=== PATIENT | female | born 1980 | race Caucasian/White ===

== ENCOUNTER 2019-01-28 10:25 | Emergency (ER) | payer MEDICAID, OTHER ==
[~2019-01-28] VITALS: Ht 167.6 cm; Wt 124.3 kg
[2019-01-28] MEDS ORDERED: KETOROLAC 30 MG/ML VIAL IVP ONE ×2 (10:45→11:00)
[2019-01-28] MEDS ORDERED: METH-313 PO (10:59)
--- NOTE | 2019-01-28 10:59 | ED Back Pain ---
General Chief Complaint: Back Problems Stated Complaint: LOWER BACK PAIN Nursing Triage Note: PT AMB TO TRIAGE WITH COMPLAINT OF BACK PAIN THAT STARTED THIS MORNING AND MIGRAINE FOR 3 DAYS. STATES SHE IS OUT OF MIGRAINE MEDICINE. Nursing Sepsis Screen: No Definite Risk Source of Information: Patient Exam Limitations: No Limitations History of Present Illness Date Seen by Provider: Jan 28, 2019 Time Seen by Provider: 10:56 Initial Comments To ER by private vehicle with reports of midline low back pain. She states here in town with a friend last night, when she awakened she had some midline low back pain. No fevers or chills, no known injury. States she believes that she slept wrong. Pain does not go down either of her legs, no loss of control of bowel or bladder. No fevers or chills. Also reports a migraine for 3 days with nausea and vomiting. Typically she states that she gets Compazine and Benadryl for her migraine. Shed also like something for her back pain. She is out of her Imitrex for migraine Location: Lumbar Spine, Paraspinous Muscles Timing/Duration: 2-3 Days Method of Injury: Unknown Associated Symptoms: lower back pain Allergies and Home Medications Allergies Coded Allergies: Penicillins (Verified Allergy, Unknown, 01/28/19) haloperidol (Verified Allergy, Unknown, 01/28/19) latex (Verified Allergy, Unknown, 01/28/19) promethazine (Verified Allergy, Unknown, 01/28/19) Patient Home Medication List Home Medication List Reviewed: Yes Review of Systems Constitutional: see HPI EENTM: see HPI Respiratory: no symptoms reported Cardiovascular: no symptoms reported Genitourinary: no symptoms reported Musculoskeletal: see HPI Skin: no symptoms reported Psychiatric/Neurological: No Symptoms Reported Past Lqkzqst-Sdpezj-Qhkecn Hx Patient Social History Alcohol Use: Denies Use Recreational Drug Use: No Smoking Status: Never a Smoker Recent Foreign Travel: No Contact w/Someone Who Travel: No Recent Infectious Disease Expo: No Recent Hopitalizations: No Physical Abuse: No Sexual Abuse: No Mistreated: No Fear: No Immunizations Up To Date Tetanus Booster (TDap): Unknown PED Vaccines UTD: Yes Seasonal Allergies Seasonal Allergies: No Past Medical History Surgeries: Yes (D&C) Appendectomy, Breast, Section, Tonsillectomy Respiratory: No Cardiac: Yes Neurological: No Genitourinary: No Gastrointestinal: No Musculoskeletal: Yes Arthritis Endocrine: No HEENT: No Cancer: No Psychosocial: No Physical Exam Vital Signs Vital Signs - First Documented 01/28/19 10:35 Temp 97.1 Pulse 110 Resp 20 B/P (MAP) 126/102 (110) Pulse Ox 98 O2 Delivery Room Air Capillary Refill : Less Than 3 Seconds Height, Weight, BMI Height: 5'6.00" Weight: 274lbs. oz. 124.970794iq; BMI Method:Stated General Appearance: No Apparent Distress, WD/WN Neck: Full Range of Motion, Normal Inspection Respiratory: No Accessory Muscle Use, No Respiratory Distress Gastrointestinal: Normal Bowel Sounds, Non Tender, Soft Extremity: Normal Capillary Refill Neurologic/Psychiatric: Alert, Oriented x3 Skin: Normal Color, Warm/Dry Progress/Results/Core Measures Results/Orders My Orders Orders - AMANDA FORTUNE APRN Ketorolac Injection (Toradol Injection) (01/28/19 10:45) Ct Abd/Pelvis Wo(Kidney Stone) (01/28/19 10:41) Ed Iv/Invasive Line Start (01/28/19 10:49) Ketorolac Injection (Toradol Injection) (01/28/19 11:00) Prochlorperazine Injection (Compazine In (01/28/19 11:00) Diphenhydramine Injection (Benadryl Inje (01/28/19 11:00) Ns Iv 500 Ml (Sodium Chloride 0.9%) (01/28/19 11:00) Vital Signs/I&O 01/28/19 10:35 Temp 97.1 Pulse 110 Resp 20 B/P (MAP) 126/102 (110) Pulse Ox 98 O2 Delivery Room Air Blood Pressure Mean: 110 Departure Impression Primary Impression: Back pain Qualified Codes: M54.5 - Low back pain Additional Impression: Headache Qualified Codes: R51 - Headache Disposition: 01 HOME, SELF-CARE Condition: Stable Departure-Patient Inst. Decision time for Depature: 10:58 Referrals: NO,LOCAL PHYSICIAN (PCP) Primary Care Physician Patient Instructions: Headache, Adult (DC) Scripts Methocarbamol (Robaxin-750) 750 Mg Tablet 750 MG PO Q6H PRN for PAIN-MODERATE, #10 TAB Prov: AMANDA FORTUNE APRN 01/28/19 AMANDA FORTUNE APRN Jan 28, 2019 10:59
[2019-01-28] MEDS ORDERED: NS IV 500 ML 500 ML IV SCH (11:00)
[2019-01-28] MEDS ORDERED: diphenhydrAMINE 50 MG/ML INJ (BENADRYL) IVP ONE (11:00)
[2019-01-28] MEDS ORDERED: PROCHLORPERAZINE 10 MG/2ML INJ (COMPAZINE) IV ONE (11:00)
[2019-01-28 11:59] VITALS: BP 126/102
== END 2019-01-28 11:59 | disposition home or self-care (01) ==
LOC: ER 10:26
DX: M54.5 Low back pain (principal); R51 Headache; Z86.69 Personal history of other diseases of the nervous system and sense organs; Z88.0 Allergy status to penicillin; Z88.8 Allergy status to other drugs, medicaments and biological substances; Z91.040 Latex allergy status; Z90.49 Acquired absence of other specified parts of digestive tract; Z90.89 Acquired absence of other organs
CPT/HCPCS: 96361; 96374; 96375

== ENCOUNTER 2019-02-16 17:57 | Emergency (ER) | payer MEDICAID ==
[~2019-02-16] VITALS: Ht 167.6 cm; Wt 124.3 kg
[~2019-02-16 17:57] MED LIST: METH-313 PO
--- NOTE | 2019-02-16 18:06 | ED Headache ---
General Chief Complaint: Head/Cervical Problems Stated Complaint: MIGRAINE/SOB Nursing Triage Note: PT STATES SHE STARTED HAVING A MIGRAINE ON SUNDAY AND WAS UNABLE TO GET HER MEDICINE TO STOP THE MIGRAINE. PT STATES SHE HAS BEEN HAVING VOMITING WITH THIS AND FEELS SOA. PT STATES HER "HEART BEATS TOO FAST". PT STATES THE MIGRAINE STARTS AT THE BASE OF HER NECK AND SPREADS TO THE FRONT OF HER HEAD. PT DENIES SMOKING. Nursing Sepsis Screen: No Definite Risk Source: patient Exam Limitations: no limitations History of Present Illness Date Seen by Provider: Feb 16, 2019 Time Seen by Provider: 18:04 Initial Comments To ER with a migraine for the past 2 days. She has nausea with it. She normally takes Imitrex at the onset of these migraines but has been out of it and no pharmacist around to get. She's also been short of breath for one hour and she has that occasionally when her "heart beats too fast". Timing/Duration: constant Severity/Quality: moderate Location: global Prior Headaches/Recent Trauma: no recent headache/trauma Associated Symptoms: nausea/vomiting Allergies and Home Medications Allergies Coded Allergies: Penicillins (Verified Allergy, Unknown, 01/28/19) haloperidol (Verified Allergy, Unknown, 01/28/19) latex (Verified Allergy, Unknown, 01/28/19) promethazine (Verified Allergy, Unknown, 01/28/19) Home Medications Methocarbamol 750 Mg Tablet, 750 MG PO Q6H PRN for PAIN-MODERATE Prescribed by: AMANDA FORTUNE on 01/28/19 1059 Patient Home Medication List Home Medication List Reviewed: Yes ([place] underneath the) Review of Systems Review of Systems Constitutional: see HPI Eyes: No Symptoms Reported Ears, Nose, Mouth, Throat: no symptoms reported Respiratory: no symptoms reported Cardiovascular: no symptoms reported Genitourinary: no symptoms reported Musculoskeletal: no symptoms reported Psychiatric/Neurological: See HPI, Headache Past Cdvuoqt-Aihops-Kakjko Hx Patient Social History Recent Foreign Travel: No Contact w/Someone Who Travel: No Recent Infectious Disease Expo: No Recent Hopitalizations: No Immunizations Up To Date Tetanus Booster (TDap): Unknown PED Vaccines UTD: Yes Seasonal Allergies Seasonal Allergies: No Past Medical History Surgeries: Yes (D&C) Appendectomy, Breast, Section, Tonsillectomy Respiratory: No Cardiac: Yes Neurological: No Genitourinary: No Gastrointestinal: No Musculoskeletal: Yes Arthritis Endocrine: No HEENT: No Cancer: No Psychosocial: No Physical Exam Vital Signs Vital Signs - First Documented 02/16/19 02/16/19 18:01 19:28 Temp 97.6 Pulse 116 Resp 20 B/P (MAP) 153/98 (116) Pulse Ox 95 O2 Delivery Room Air Capillary Refill : Less Than 3 Seconds Height, Weight, BMI Height: 5'6.00" Weight: 274lbs. oz. 124.547552ns; BMI Method:Stated General Appearance: WD/WN, no apparent distress HEENT: PERRL/EOMI, normal ENT inspection Respiratory: normal breath sounds, no respiratory distress, no accessory muscle use Gastrointestinal: normal bowel sounds, non tender, soft Extremities: normal range of motion, non-tender Psychiatric: alert, oriented x 3 Crainal Nerves: normal hearing, normal speech, PERRL Motor/Sensory: no motor deficit, no sensory deficit Skin: normal color, warm/dry Progress/Results/Core Measures Results/Orders Lab Results Laboratory Tests Test 02/16/19 18:20 Range/Units White Blood Count 10.1 4.3-11.0 10^3/uL Red Blood Count 4.94 4.35-5.85 10^6/uL Hemoglobin 13.8 11.5-16.0 G/DL Hematocrit 43 35-52 % Mean Corpuscular Volume 86 80-99 FL Mean Corpuscular Hemoglobin 28 25-34 PG Mean Corpuscular Hemoglobin Concent 32 32-36 G/DL Red Cell Distribution Width 13.9 10.0-14.5 % Platelet Count 374 130-400 10^3/uL Mean Platelet Volume 9.6 7.4-10.4 FL Neutrophils (%) (Auto) 65 42-75 % Lymphocytes (%) (Auto) 21 12-44 % Monocytes (%) (Auto) 9 0-12 % Eosinophils (%) (Auto) 4 0-10 % Basophils (%) (Auto) 1 0-10 % Neutrophils # (Auto) 6.6 1.8-7.8 X 10^3 Lymphocytes # (Auto) 2.2 1.0-4.0 X 10^3 Monocytes # (Auto) 0.9 0.0-1.0 X 10^3 Eosinophils # (Auto) 0.4 H 0.0-0.3 10^3/uL Basophils # (Auto) 0.1 0.0-0.1 10^3/uL D-Dimer 0.36 0.00-0.49 UG/ML Sodium Level 138 135-145 MMOL/L Potassium Level 3.9 3.6-5.0 MMOL/L Chloride Level 111 H 98-107 MMOL/L Carbon Dioxide Level 17 L 21-32 MMOL/L Anion Gap 10 5-14 MMOL/L Blood Urea Nitrogen 10 7-18 MG/DL Creatinine 0.76 0.60-1.30 MG/DL Estimat Glomerular Filtration Rate > 60 BUN/Creatinine Ratio 13 Glucose Level 108 H 70-105 MG/DL Calcium Level 8.7 8.5-10.1 MG/DL Corrected Calcium 8.8 8.5-10.1 MG/DL Total Bilirubin 0.3 0.1-1.0 MG/DL Aspartate Amino Transf (AST/SGOT) 17 5-34 U/L Alanine Aminotransferase (ALT/SGPT) 14 0-55 U/L Alkaline Phosphatase 93 40-136 U/L Total Protein 7.3 6.4-8.2 GM/DL Albumin 3.9 3.2-4.5 GM/DL Serum Test, Qualitative NEGATIVE NEGATIVE My Orders Orders - AMANDA FORTUNE APRN Cbc With Automated Diff (02/16/19 18:03) Comprehensive Metabolic Panel (02/16/19 18:03) Ua Culture If Indicated (02/16/19 18:03) Hcg,Qualitative Serum (02/16/19 18:03) Fibrin Degradation Products (02/16/19 18:03) Ed Iv/Invasive Line Start (02/16/19 18:03) Ns Iv 1000 Ml (Sodium Chloride 0.9%) (02/16/19 18:15) Ketorolac Injection (Toradol Injection) (02/16/19 18:15) Diphenhydramine Injection (Benadryl Inje (02/16/19 18:15) Methylprednisolone Sod Succ (Solu-Medrol (02/16/19 18:15) Prochlorperazine Injection (Compazine In (02/16/19 18:45) Drug Screen Stat (Urine) (02/16/19 19:27) Sumatriptan Injection (Imitrex Injection (02/16/19 19:30) Chest 1 View, Ap/Pa Only (02/16/19 19:31) Medications Given in ED Current Medications Medications Dose Ordered Sig/Barb Route Start Time Stop Time Status Last Admin Dose Admin Diphenhydramine HCl 25 mg ONCE ONCE IVP 02/16/19 18:15 02/16/19 18:16 DC 02/16/19 18:26 25 MG Ketorolac Tromethamine 30 mg ONCE ONCE IVP 02/16/19 18:15 02/16/19 18:16 DC 02/16/19 18:32 30 MG Methylprednisolone Sodium Succinate 125 mg ONCE ONCE IVP 02/16/19 18:15 02/16/19 18:16 DC 02/16/19 18:28 125 MG Prochlorperazine Edisylate 10 mg ONCE ONCE IV 02/16/19 18:45 02/16/19 18:46 DC 02/16/19 18:42 10 MG Sumatriptan Succinate 6 mg ONCE ONCE SQ 02/16/19 19:30 02/16/19 19:31 DC 02/16/19 19:31 6 MG Vital Signs/I&O 02/16/19 02/16/19 18:01 19:28 Temp 97.6 Pulse 116 84 Resp 20 16 B/P (MAP) 153/98 (116) 118/81 (93) Pulse Ox 95 O2 Delivery Room Air Blood Pressure Mean: 116 Departure Communication (Admissions) 1909-HR down to 89. Impression Primary Impression: Headache Qualified Codes: R51 - Headache Disposition: 01 HOME, SELF-CARE Condition: Improved Departure-Patient Inst. Decision time for Depature: 20:13 Referrals: NO,LOCAL PHYSICIAN (PCP/Family) Primary Care Physician Patient Instructions: Headache, Adult (DC) Add. Discharge Instructions: 1. Return to ER for any concerns 2. Follow-up with your doctor next week. AMANDA FORTUNE APRN Feb 16, 2019 18:06
[2019-02-16] MEDS ORDERED: KETOROLAC 30 MG/ML VIAL IVP ONE (18:15)
[2019-02-16] MEDS ORDERED: NS IV 1000 ML 1,000 ML IV SCH (18:15)
[2019-02-16] MEDS ORDERED: methylPREDNISolone 125 MG (Solu-MEDROL) VIAL IVP ONE (18:15)
[2019-02-16] MEDS ORDERED: diphenhydrAMINE 50 MG/ML INJ (BENADRYL) IVP ONE (18:15)
[2019-02-16 18:41] LABS: BASOPHILS # (AUTO) 0.1 10^3/uL (0.0-0.1); BASOPHILS % (AUTO) 1 % (0-10); EOSINOPHILS # (AUTO) 0.4 10^3/uL (0.0-0.3); EOSINOPHILS % (AUTO) 4 % (0-10); HEMATOCRIT 43 % (35-52); HEMOGLOBIN 13.8 G/DL (11.5-16.0); LYMPHOCYTES # (AUTO) 2.2 X 10^3 (1.0-4.0); LYMPHOCYTES % (AUTO) 21 % (12-44); MEAN CORPUSCULAR HEMOGLOBIN 28 PG (25-34); MEAN CORPUSCULAR HGB CONC 32 G/DL (32-36); MEAN CORPUSCULAR VOLUME 86 FL (80-99); MEAN PLATELET VOLUME 9.6 FL (7.4-10.4); MONOCYTES # (AUTO) 0.9 X 10^3 (0.0-1.0); MONOCYTES % (AUTO) 9 % (0-12); NEUTROPHILS # (AUTO) 6.6 X 10^3 (1.8-7.8); NEUTROPHILS % (AUTO) 65 % (42-75); PLATELET COUNT 374 10^3/uL (130-400); RED CELL DISTRIBUTION WIDTH 13.9 % (10.0-14.5); WHITE BLOOD COUNT 10.1 10^3/uL (4.3-11.0)
[2019-02-16] MEDS ORDERED: PROCHLORPERAZINE 10 MG/2ML INJ (COMPAZINE) IV ONE (18:45)
--- NOTE | 2019-02-16 18:59 | NUR ---
report given to SANTA Ding
[2019-02-16 19:03] LABS: ALANINE AMINOTRANSFERASE 14 U/L (0-55); ALBUMIN 3.9 GM/DL (3.2-4.5); ALKALINE PHOSPHATASE 93 U/L (40-136); BILIRUBIN,TOTAL 0.3 MG/DL (0.1-1.0); BUN/CREATININE RATIO 13; CALCIUM 8.7 MG/DL (8.5-10.1); CARBON DIOXIDE 17 MMOL/L (21-32); CHLORIDE 111 MMOL/L (98-107); CREATININE SERUM 0.76 MG/DL (0.60-1.30); GFR ESTIMATED > 60; GLUCOSE 108 MG/DL (70-105); POTASSIUM 3.9 MMOL/L (3.6-5.0); SODIUM 138 MMOL/L (135-145); TOTAL PROTEIN 7.3 GM/DL (6.4-8.2)
--- NOTE | 2019-02-16 19:25 | NUR ---
pt reports pain 7/10, iv fluids completed. pt denies being able to void at this time.
[2019-02-16 19:28] VITALS: BP 118/81
[2019-02-16] MEDS ORDERED: SUMAtriptan 6 MG/0.5 ML (IMITREX) INJ SQ ONE (19:30)
--- NOTE | 2019-02-16 19:57 | Diagnostic Imaging Report ---
INDICATION: Shortness of breath COMPARISON: None. FINDINGS: Single view of the chest demonstrates clear lungs bilaterally. The heart is normal. There is no pneumothorax. The osseous structures are normal. IMPRESSION: 1. Negative chest. Dictated by: Dictated on workstation # [id number]
[2019-02-16 20:17] VITALS: BP 109/62
== END 2019-02-16 20:20 | disposition home or self-care (01) ==
LOC: EDUNIT# 17:57 → ER 17:58
DX: R51 Headache (principal); Z86.69 Personal history of other diseases of the nervous system and sense organs; Z88.0 Allergy status to penicillin; Z88.8 Allergy status to other drugs, medicaments and biological substances; Z91.040 Latex allergy status; Z90.49 Acquired absence of other specified parts of digestive tract; Z90.89 Acquired absence of other organs
CPT/HCPCS: 36415; 71045; 80053; 84703; 85025; 85379

== ENCOUNTER 2019-02-17 16:53 | Emergency (ER) | payer MEDICAID ==
[~2019-02-17] VITALS: Ht 167.6 cm; Wt 124.3 kg
[2019-02-17] MEDS ORDERED: KETOROLAC 30 MG/ML VIAL IVP ONE (17:15)
[2019-02-17] MEDS ORDERED: diphenhydrAMINE 50 MG/ML INJ (BENADRYL) IVP ONE (17:15)
[2019-02-17] MEDS ORDERED: PROCHLORPERAZINE 10 MG/2ML INJ (COMPAZINE) IV ONE (17:15)
[2019-02-17] MEDS ORDERED: SUMAtriptan 6 MG/0.5 ML (IMITREX) INJ SQ ONE (17:15)
--- NOTE | 2019-02-17 17:31 | ED Headache ---
General Chief Complaint: Head/Cervical Problems Stated Complaint: HEADACHE Nursing Triage Note: PT AMB TO TRIAGE WITH COMPLAINT OF HEADACHE. STATES WAS SEEN YESTERDAY IN ER, STATES SYMPTOMS IMPROVED. BUT WOKE UP THIS MORNING WITH ANOTHER HEADACHE. STATES SHE IS UNABLE TO FUNCTION DUE TO PAIN. Nursing Sepsis Screen: No Definite Risk Source: patient Exam Limitations: no limitations History of Present Illness Date Seen by Provider: Feb 17, 2019 Time Seen by Provider: 17:27 Initial Comments To ER with reports of a headache worse than yesterday. She was yesterday for the same. No fevers or chills. History of migraines. Severity/Quality: moderate Location: global Prior Headaches/Recent Trauma: frequent headaches Modifying Factors: worse with exposure to light Associated Symptoms: denies symptoms Allergies and Home Medications Allergies Coded Allergies: Penicillins (Verified Allergy, Unknown, 01/28/19) haloperidol (Verified Allergy, Unknown, 01/28/19) latex (Verified Allergy, Unknown, 01/28/19) promethazine (Verified Allergy, Unknown, 01/28/19) Home Medications Methocarbamol 750 Mg Tablet, 750 MG PO Q6H PRN for PAIN-MODERATE Prescribed by: AMANDA FORTUNE on 01/28/19 1059 Patient Home Medication List Home Medication List Reviewed: Yes Review of Systems Review of Systems Constitutional: see HPI Eyes: No Symptoms Reported Ears, Nose, Mouth, Throat: no symptoms reported Respiratory: no symptoms reported Cardiovascular: no symptoms reported Genitourinary: no symptoms reported Musculoskeletal: no symptoms reported Skin: no symptoms reported Psychiatric/Neurological: See HPI, Headache Past Ayzjlxv-Rweeyh-Exojke Hx Patient Social History Alcohol Use: Denies Use Recreational Drug Use: No Smoking Status: Never a Smoker 2nd Hand Smoke Exposure: Yes Recent Foreign Travel: No Contact w/Someone Who Travel: No Recent Infectious Disease Expo: No Recent Hopitalizations: No Physical Abuse: No Sexual Abuse: No Mistreated: No Fear: No Immunizations Up To Date Tetanus Booster (TDap): Unknown PED Vaccines UTD: Yes Seasonal Allergies Seasonal Allergies: No Past Medical History Surgeries: Yes (D&C) Appendectomy, Breast, Section, Tonsillectomy Respiratory: No Cardiac: Yes Neurological: No Genitourinary: No Gastrointestinal: No Musculoskeletal: Yes Arthritis Endocrine: No HEENT: No Cancer: No Psychosocial: No Physical Exam Vital Signs Vital Signs - First Documented 02/17/19 16:54 Temp 97.9 Pulse 121 Resp 18 B/P (MAP) 127/70 (89) Pulse Ox 98 O2 Delivery Room Air Capillary Refill : Less Than 3 Seconds Height, Weight, BMI Height: 5'6.00" Weight: 274lbs. oz. 124.180816vb; BMI Method:Stated General Appearance: WD/WN, no apparent distress, other (despite an allegedly worsening headache, she talks nearly nonstop with her next door neighbor's in the fast track room two. ) HEENT: PERRL/EOMI, normal ENT inspection, TMs normal Neck: non-tender, full range of motion Respiratory: no respiratory distress, no accessory muscle use Extremities: normal range of motion, non-tender Psychiatric: alert, oriented x 3 Crainal Nerves: normal hearing, normal speech, PERRL Skin: normal color, warm/dry Progress/Results/Core Measures Results/Orders My Orders Orders - AMANDA FORTUNE APRN Ketorolac Injection (Toradol Injection) (02/17/19 17:15) Diphenhydramine Injection (Benadryl Inje (02/17/19 17:15) Prochlorperazine Injection (Compazine In (02/17/19 17:15) Sumatriptan Injection (Imitrex Injection (02/17/19 17:15) Medications Given in ED Current Medications Medications Dose Ordered Sig/Barb Route Start Time Stop Time Status Last Admin Dose Admin Diphenhydramine HCl 50 mg ONCE ONCE IVP 02/17/19 17:15 02/17/19 17:16 DC 02/17/19 17:26 50 MG Ketorolac Tromethamine 30 mg ONCE ONCE IVP 02/17/19 17:15 02/17/19 17:16 DC 02/17/19 17:26 30 MG Prochlorperazine Edisylate 10 mg ONCE ONCE IV 02/17/19 17:15 02/17/19 17:16 DC 02/17/19 17:25 10 MG Sumatriptan Succinate 6 mg ONCE ONCE SQ 02/17/19 17:15 02/17/19 17:16 DC 02/17/19 17:26 6 MG Vital Signs/I&O 02/17/19 16:54 Temp 97.9 Pulse 121 Resp 18 B/P (MAP) 127/70 (89) Pulse Ox 98 O2 Delivery Room Air Blood Pressure Mean: 89 Departure Impression Primary Impression: Headache Qualified Codes: R51 - Headache Disposition: 01 HOME, SELF-CARE Condition: Stable Departure-Patient Inst. Decision time for Depature: 17:29 Referrals: NO,LOCAL PHYSICIAN (PCP/Family) Primary Care Physician Patient Instructions: Headache, Adult (DC) AMANDA FORTUNE APRN Feb 17, 2019 17:31
[2019-02-17 17:52] VITALS: BP 127/70
== END 2019-02-17 17:52 | disposition home or self-care (01) ==
LOC: ER 16:53 → EDUNIT# 16:53 → ER 17:52
DX: R51 Headache (principal); Z88.0 Allergy status to penicillin; Z88.8 Allergy status to other drugs, medicaments and biological substances; Z86.69 Personal history of other diseases of the nervous system and sense organs; Z77.22 Contact with and (suspected) exposure to environmental tobacco smoke (acute) (chronic); Z90.49 Acquired absence of other specified parts of digestive tract; Z90.89 Acquired absence of other organs

== ENCOUNTER 2019-12-08 10:20 | Emergency (ER) | payer MEDICAID ==
[~2019-12-08] VITALS: Ht 167.7 cm; Wt 136.0 kg
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
[2019-12-08] MEDS ORDERED: diphenhydrAMINE 50 MG/ML INJ (BENADRYL) IM ONE (11:00)
[2019-12-08] MEDS ORDERED: PROCHLORPERAZINE 10 MG/2ML INJ (COMPAZINE) IM ONE (11:00)
[2019-12-08] MEDS ORDERED: KETOROLAC 60 MG/2 ML VIAL IM ONE (11:00)
[2019-12-08 11:34] VITALS: BP 112/81
--- OUTSIDE RECORDS SUMMARY | 2019-12-08 13:08 | XMS REPORT | Continuity of Care Document ---
Author Organization Unknown Address Unknown Phone Unavailable Allergies Active Description Code Type Severity Reaction Onset Reported/Identified Relationship to Patient Clinical Status Yes haloperidol [id number] Drug Aller gy Unknown N/A 01/28/2019 Yes latex [id number] Drug Allergy Unknown N/A 01/28/2019 Yes Penicillins [id number] Drug Aller gy Unknown N/A 01/28/2019 Yes promethazine [id number] Drug Allergy Unknown N/A 01/28/2019 Medications There is no data. Problems Date Dx Coded Attending Type Code Diagnosis Diagnosed By 01/28/2019 AMANDA FORTUNE APRN Ot M54 .5 LOW BACK PAIN 01/28/2019 AMANDA FORTUNE APRN Ot R51 HEADACHE 01/28/2019 AMANDA FORTUNE APRN Ot Z86.69 PERSONAL HISTORY OF DIS OF THE NERVOUS S 01/28/2019 AMANDA FORTUNE APRN Ot Z88 .0 ALLERGY STATUS TO PENICILLIN 01/28/2019 AMANDA FORTUNE APRN Ot Z88 .8 ALLERGY STATUS TO OTH DRUG/MEDS/BIOL SUB 01/28/2019 AMANDA FORTUNE APRN Ot Z90.49 ACQUIRED ABSENCE OF OTHER SPECIFIED PART 01/28/2019 AMANDA FORTUNE APRN Ot Z90.89 ACQUIRED ABSENCE OF OTHER ORGANS 01/28/2019 AMANDA FORTUNE APRN Ot Z91.040 LATEX ALLERGY STATUS 02/16/2019 AMANDA FORUTNE APRN Ot R06.02 SHORTNESS OF BREATH 02/16/2019 AMANDA FORTUNE APRN Ot R51 HEADACHE 02/16/2019 AMANDA FORTUNE APRN Ot Z86.69 PERSONAL HISTORY OF DIS OF THE NERVOUS S 02/16/2019 AMANDA FORTUNE APRN Ot Z88 .0 ALLERGY STATUS TO PENICILLIN 02/16/2019 AMANDA FORTUNE APRN Ot Z88 .8 ALLERGY STATUS TO OTH DRUG/MEDS/BIOL SUB 02/16/2019 AMANDA FORTUNE APRN Ot Z90.49 ACQUIRED ABSENCE OF OTHER SPECIFIED PART 02/16/2019 AMANDA FORTUNE APRN Ot Z90.89 ACQUIRED ABSENCE OF OTHER ORGANS 02/16/2019 AMANDA FORTUNE APRN Ot Z91.040 LATEX ALLERGY STATUS 02/17/2019 AMANDA FORTUNE APRN Ot R51 HEADACHE 02/17/2019 AMANDA FORTUNE APRN Ot Z77.22 CNTCT W AND EXPSR TO ENVIRON TOBACCO SMO 02/17/2019 AMANDA FORTUNE APRN Ot Z86.69 PERSONAL HISTORY OF DIS OF THE NERVOUS S 02/17/2019 AMANDA FORTUNE APRN Ot Z88 .0 ALLERGY STATUS TO PENICILLIN 02/17/2019 AMANDA FORTUNE APRN Ot Z88 .8 ALLERGY STATUS TO OTH DRUG/MEDS/BIOL SUB 02/17/2019 AMANDA FORTUNE APRN Ot Z90.49 ACQUIRED ABSENCE OF OTHER SPECIFIED PART 02/17/2019 AMANDA FORTUNE APRN Ot Z90.89 ACQUIRED ABSENCE OF OTHER ORGANS 02/19/2019 AMANDA FORTUNE APRN Ot R06.02 SHORTNESS OF BREATH 02/19/2019 AMANDA FORTUNE APRN Ot R51 HEADACHE 02/19/2019 AMANDA FORTUNE APRN Ot Z86.69 PERSONAL HISTORY OF DIS OF THE NERVOUS S 02/19/2019 AMANDA FORTUNE APRN Ot Z88 .0 ALLERGY STATUS TO PENICILLIN 02/19/2019 AMANDA FORTUNE APRN Ot Z88 .8 ALLERGY STATUS TO OTH DRUG/MEDS/BIOL SUB 02/19/2019 AMANDA FORTUNE APRN Ot Z90.49 ACQUIRED ABSENCE OF OTHER SPECIFIED PART 02/19/2019 AMANDA FORTUNE APRN Ot Z90.89 ACQUIRED ABSENCE OF OTHER ORGANS 02/19/2019 AMANDA FORTUNE APRN Ot Z91.040 LATEX ALLERGY STATUS 02/20/2019 AMANDA FORTUNE APRN Ot R51 HEADACHE 02/20/2019 AMANDA FORTUNE APRN Ot Z77.22 CNTCT W AND EXPSR TO ENVIRON TOBACCO SMO 02/20/2019 AMANDA FORTUNE APRN Ot Z86.69 PERSONAL HISTORY OF DIS OF THE NERVOUS S 02/20/2019 AMANDA FORTUNE APRN Ot Z88 .0 ALLERGY STATUS TO PENICILLIN 02/20/2019 AMANDA FORTUNE APRN Ot Z88 .8 ALLERGY STATUS TO OTH DRUG/MEDS/BIOL SUB 02/20/2019 AMANDA FORTUNE APRN Ot Z90.49 ACQUIRED ABSENCE OF OTHER SPECIFIED PART 02/20/2019 AMANDA FORTUNE APRN Ot Z90.89 ACQUIRED ABSENCE OF OTHER ORGANS Procedures There is no data. Results Test Result Range Complete blood count (CBC) with automate d white blood cell (WBC) differential - 02/16/19 18:20 Blood leukocytes automated count (number/volume) 10.1 10*3/uL 4.3-11.0 Blood erythrocytes automated count (number/volume) 4.94 10*6/uL 4.35-5.85 Venous blood hemoglobin measurement (mass/volume) 13.8 g/dL 11.5-16.0 Blood hematocrit (volume fraction) 43 % 35-52 Automated erythrocyte mean corpuscular volume 86 [ foz_us] 80-99 Automated erythrocyte mean corpuscular h emoglobin (mass per erythrocyte) 28 pg 25-34 Automated erythrocyte mean corpuscular h emoglobin concentration measurement (mass/volume) 32 g/dL 32-36 Automated erythrocyte distribution width ratio 13. 9 % 10.0- 14.5 Automated blood platelet count (count/volume) 374 10*3/uL 130-400 Automated blood platelet mean volume measurement 9.6 [foz_us] 7.4-10.4 Automated blood neutrophils/100 leukocytes 65 % 42-75 Automated blood lymphocytes/100 leukocytes 21 % 12-44 Blood monocytes/100 leukocytes 9 % 0-12 Automated blood eosinophils/100 leukocytes 4 % 0-10 Automated blood basophils/100 leukocytes 1 % 0-10 Blood neutrophils automated count (number/volume) 6.6 10*3 1.8-7.8 Blood lymphocytes automated count (number/volume) 2.2 10*3 1.0-4.0 Blood monocytes automated count (number/volume) 0. 9 10*3 0.0-1.0 Automated eosinophil count 0.4 10*3/uL 0 .0-0.3 Automated blood basophil count (count/volume) 0.1 10*3/uL 0.0-0.1 Serum or plasma choriogonadotropin (preg geoff test) detection - 02/16/19 18:20 Serum or plasma choriogonadotropin ( test) de tection NEGATIVE NEGATIVE Comprehensive metabolic panel - 02/16/19 18:20 Serum or plasma sodium measurement (moles/volume) 138 mmol/L 135-145 Serum or plasma potassium measurement (moles/volume) 3.9 mmol/L 3.6-5.0 Serum or plasma chloride measurement (moles/volume) 111 mmol/L 98-107 Carbon dioxide 17 mmol/L 21-32 Serum or plasma anion gap determination (moles/volume) 10 mmol/L 5-14 Serum or plasma urea nitrogen measurement (mass/volume ) 10 mg/dL 7-18 Serum or plasma creatinine measurement (mass/volume) 0.76 mg/dL 0.60-1.30 Serum or plasma urea nitrogen/creatinine mass ratio 13 NRG Serum or plasma creatinine measurement w ith calculation of estimated glomerular filtration rate > NRG Serum or plasma glucose measurement (mass/volume) 108 mg/dL 70-105 Serum or plasma calcium measurement (mass/volume) 8.7 mg/dL 8.5-10.1 Serum or plasma total bilirubin measurement (mass/volu me) 0.3 mg/dL 0.1-1.0 Serum or plasma alkaline phosphatase ty surement (enzymatic activity/volume) 93 U/L 40-136 Serum or plasma aspartate aminotransfera se measurement (enzymatic activity/volume) 17 U/L 5-34 Serum or plasma alanine aminotransferase measurement (enzymatic activity/volume) 14 U/L 0-55 Serum or plasma protein measurement (mass/volume) 7.3 g/dL 6.4-8.2 Serum or plasma albumin measurement (mass/volume) 3.9 g/dL 3.2-4.5 CALCIUM CORRECTED 8.8 mg/dL 8.5-10.1 Fibrin D-dimer FEU measurement in platel et poor plasma (mass/volume) - 02/16/19 18:20 Fibrin D-dimer FEU measurement in platelet poor plasma (mass/volume) 0.36 ug/mL 0.00-0.49 Encounters ACCT No. Visit Date/Time Discharge Status Pt. Type Provider Facility Loc./Unit Complaint [id number] 02/17/2019 16:53:00 019 17:52:00 DIS Emergency AMANDA FORTUNE APRN [facility] ER HEADACHE [id number] 02/16/2019 17:58:00 019 20:20:00 DIS Emergency AMANDA FORTUNE APRN [facility] ER MIGRAINE/SOB [id number] 01/28/2019 10:26:00 019 11:59:00 DIS Emergency AMANDA FORTUNE APRN [facility] ER LOWER BACK PAIN
== END 2019-12-08 11:30 | disposition home or self-care (01) ==
LOC: EDUNIT# 10:20 → ER 10:21
DX: R51 Headache (principal); Z86.69 Personal history of other diseases of the nervous system and sense organs; Z88.0 Allergy status to penicillin; Z88.8 Allergy status to other drugs, medicaments and biological substances; Z91.040 Latex allergy status; Z77.22 Contact with and (suspected) exposure to environmental tobacco smoke (acute) (chronic)
CPT/HCPCS: 99284

== ENCOUNTER 2021-07-21 19:11 | Emergency (ER) | payer MEDICAID ==
[~2021-07-21] VITALS: Ht 170.1 cm; Wt 125.6 kg
--- NOTE | 2021-07-21 19:59 | ED General ---
General Chief Complaint: Respiratory Problems Stated Complaint: SOB, SWELLING IN CHEST Nursing Triage Note: C/O RIGHT CALF SWELLING/PAIN, MIGRAINE, AND SHORTNESS OF BREATH SINCE 1829 WHILE TRYING TO GET AROUND FOR WORK. SHE ADMITS WELL THAT SHE HAS BEEN OUT OF HER HOME MEDS FOR APPROX 3 DAYS BUT IS UNABLE TO RECALL AT THIS TIME WHAT THEY ARE. Source of Information: Patient Exam Limitations: No Limitations (AMANDA FORTUNE APRN) History of Present Illness Date Seen by Provider: Jul 21, 2021 Time Seen by Provider: 19:54 Initial Comments To ER with right calf swelling and pain, headache, shortness of breath since 630 this evening. She has been out of her home medications for 3 days but does not know what they were. She states this reminds her of when she had fluid around her heart and had to be drained. She also thinks she might just be having a panic attack. Timing/Duration: 4-6 Hours Severity: Moderate Associated Systoms: Headaches, Shortness of Air (AMANDA FORTUNE APRN) Allergies and Home Medications Allergies Coded Allergies: Penicillins (Verified Allergy, Unknown, 01/28/19) haloperidol (Verified Allergy, Unknown, 01/28/19) latex (Verified Allergy, Unknown, 01/28/19) promethazine (Verified Allergy, Unknown, 01/28/19) Patient Home Medication List Home Medication List Reviewed: Yes (AMANDA FORTUNE APRN) Methocarbamol (Robaxin-750) 750 Mg Tablet, 750 MG PO Q6H PRN for PAIN-MODERATE Prescribed by: AMANDA FORTUNE on 01/28/19 1059 Review of Systems Review of Systems Constitutional: see HPI; No chills, No fever, No malaise, No weakness EENTM: see HPI Respiratory: no symptoms reported Skin: no symptoms reported Psychiatric/Neurological: No Symptoms Reported Hematologic/Lymphatic: No Symptoms Reported Immunological/Allergic: no symptoms reported (AMANDA FORTUNE APRN) Past Fwxnwrh-Vzviux-Zvkkpx Hx Immunizations Up To Date Tetanus Booster (TDap): Unknown PED Vaccines UTD: Yes (AMANDA FORTUNE APRN) Seasonal Allergies Seasonal Allergies: No (AMANDA FORTUNE APRN) Past Medical History Surgeries: Yes (D&C) Appendectomy, Breast, Section, Tonsillectomy Respiratory: No Cardiac: Yes Neurological: Yes Headaches /Migraines Genitourinary: No Gastrointestinal: No Musculoskeletal: Yes Arthritis Endocrine: No HEENT: No Cancer: No Psychosocial: No (AMANDA FORTUNE APRN) Physical Exam Vital Signs Vital Signs - First Documented 07/21/21 07/21/21 19:28 21:15 Temp 36.7 Pulse 99 Resp 22 B/P (MAP) 153/100 (117) Pulse Ox 98 O2 Delivery Room Air (KIERA MCMILLAN MD) Vital Signs Capillary Refill : Less Than 3 Seconds (AMANDA FORTUNE APRN) Height, Weight, BMI Height: 5'6.00" Weight: 274lbs. oz. 124.602636je; 43.00 BMI Method:Stated General Appearance: No Apparent Distress, WD/WN Eyes: Bilateral Eye Normal Inspection, Bilateral Eye PERRL Neck: Full Range of Motion, Normal Inspection Respiratory: No Accessory Muscle Use, No Respiratory Distress Cardiovascular: Regular Rate, Rhythm, Normal Peripheral Pulses Gastrointestinal: Non Tender, Soft Extremity: Normal Capillary Refill, Normal Inspection, Other (There is a little swelling of the right calf without erythema or ecchymosis.) Neurologic/Psychiatric: Alert, Oriented x3 Skin: Normal Color, Warm/Dry (AMANDA FORTUNE APRN) Progress/Results/Core Measures Suspected Sepsis SIRS Temperature: Pulse: 99 Respiratory Rate: 22 Laboratory Tests 07/21/21 20:00: White Blood Count 7.8 Blood Pressure 153 /100 Mean: 117 Laboratory Tests 07/21/21 19:47: Creatinine 0.80, Total Bilirubin 0.5 07/21/21 20:00: Platelet Count 296 (AMANDA FORTUNE APRN) Results/Orders Lab Results Laboratory Tests Test 07/21/21 19:47 07/21/21 20:00 Range/Units D-Dimer < 0.27 0.00-0.49 UG/ML Sodium Level 139 135-145 MMOL/L Potassium Level 3.6 3.6-5.0 MMOL/L Chloride Level 104 98-107 MMOL/L Carbon Dioxide Level 27 21-32 MMOL/L Anion Gap 8 5-14 MMOL/L Blood Urea Nitrogen 7 7-18 MG/DL Creatinine 0.80 0.60-1.30 MG/DL Estimat Glomerular Filtration Rate 94 BUN/Creatinine Ratio 9 Glucose Level 116 H 70-105 MG/DL Calcium Level 9.4 8.5-10.1 MG/DL Corrected Calcium 9.6 8.5-10.1 MG/DL Total Bilirubin 0.5 0.1-1.0 MG/DL Aspartate Amino Transf (AST/SGOT) 13 5-34 U/L Alanine Aminotransferase (ALT/SGPT) 11 0-55 U/L Alkaline Phosphatase 68 40-136 U/L B-Type Natriuretic Peptide 13.8 <100.0 PG/ML Total Protein 7.1 6.4-8.2 GM/DL Albumin 3.8 3.2-4.5 GM/DL White Blood Count 7.8 4.3-11.0 10^3/uL Red Blood Count 5.12 H 3.80-5.11 10^6/uL Hemoglobin 15.3 11.5-16.0 g/dL Hematocrit 47 35-52 % Mean Corpuscular Volume 92 80-99 fL Mean Corpuscular Hemoglobin 30 25-34 pg Mean Corpuscular Hemoglobin Concent 33 32-36 g/dL Red Cell Distribution Width 12.0 10.0-14.5 % Platelet Count 296 130-400 10^3/uL Mean Platelet Volume 8.9 L 9.0-12.2 fL Immature Granulocyte % (Auto) 0 % Neutrophils (%) (Auto) 44 42-75 % Lymphocytes (%) (Auto) 43 12-44 % Monocytes (%) (Auto) 8 0-12 % Eosinophils (%) (Auto) 4 0-10 % Basophils (%) (Auto) 1 0-10 % Neutrophils # (Auto) 3.5 1.8-7.8 10^3/uL Lymphocytes # (Auto) 3.3 1.0-4.0 10^3/uL Monocytes # (Auto) 0.6 0.0-1.0 10^3/uL Eosinophils # (Auto) 0.3 0.0-0.3 10^3/uL Basophils # (Auto) 0.1 0.0-0.1 10^3/uL Immature Granulocyte # (Auto) 0.0 0.0-0.1 10^3/uL Serum Test, Qualitative NEGATIVE NEGATIVE (KIERA MCMILLAN MD) Medications Given in ED Current Medications Medications Dose Ordered Sig/Barb Route Start Time Stop Time Status Last Admin Dose Admin Ketorolac Tromethamine 15 mg ONCE ONCE IVP 07/21/21 20:00 07/21/21 20:01 DC 07/21/21 20:09 15 MG Lorazepam 0.5 mg ONCE PRN IVP 07/21/21 20:00 07/21/21 21:24 DC 07/21/21 20:07 0.5 MG Sumatriptan Succinate 6 mg ONCE ONCE SQ 07/21/21 21:15 07/21/21 21:16 DC 07/21/21 21:15 6 MG (KIERA MCMILLAN MD) Vital Signs/I&O 07/21/21 07/21/21 07/21/21 19:28 19:30 21:15 Temp 36.7 Pulse 99 93 Resp 22 18 B/P (MAP) 153/100 (117) 134/87 Pulse Ox 98 96 O2 Delivery Room Air Room Air Room Air (KIERA MCMILLAN MD) Vital Signs/I&O Capillary Refill : Less Than 3 Seconds (AMANDA FORTUNE APRN) Blood Pressure Mean: 117 Departure Communication (Admissions) Family Conversation NAME: [facility] REC#: [id number] PT STATUS: REG ER : 1980 PHYSICIAN: AMANDA FORTUNE APRN ADMIT DATE: 07/21/21/ER Signed Date of Exam:07/21/21 CHEST 1 VIEW, AP/PA ONLY EXAMINATION: Chest radiograph, portable AP view. DATE: 07/21/2021 8:34 PM INDICATION: 41-year-old female, shortness of breath. COMPARISON: February 16, 2019. FINDINGS: Heart size and mediastinal contours are unchanged. There is no identified pneumothorax. There is no large pleural effusion. There is no identified focal airspace consolidation. There are mild left acromioclavicular degenerative changes. IMPRESSION: No identified acute cardiopulmonary abnormality. Dictated by: Dictated on workstation # [id number] Dict: 07/21/212034 Trans: 07/21/212055 PJE [id number] Interpreted by: KARSON WILKINSON MD Electronically signed by: KARSON WILKINSON MD 07/21/212055 NAME: [facility] REC#: [id number] PT STATUS: REG ER : 1980 PHYSICIAN: AMANDA FORTUNE APRN ADMIT DATE: 07/21/21/ER Draft Date of Exam:07/21/21 CHEST 1 VIEW, AP/PA ONLY EXAMINATION: Chest radiograph, portable AP view. DATE: 07/21/2021 8:34 PM INDICATION: 41-year-old female, shortness of breath. COMPARISON: February 16, 2019. FINDINGS: Heart size and mediastinal contours are unchanged. There is no identified pneumothorax. There is no large pleural effusion. There is no identified focal airspace consolidation. There are mild left acromioclavicular degenerative changes. IMPRESSION: No identified acute cardiopulmonary abnormality. Dictated on workstation # [id number] Dict: 07/21/212034 Trans: 07/21/212038 [facility] [id number] Interpreted by: KARSON WILKINSON MD Electronically signed by: (AMANDA FORTUNE APRN) Impression Primary Impression: Right leg swelling Additional Impressions: Shortness of breath Anxiety Disposition: 01 HOME, SELF-CARE Condition: Stable Departure-Patient Inst. Decision time for Depature: 20:43 (AMANDA FORTUNE APRN) Referrals: NO,LOCAL PHYSICIAN (PCP) Primary Care Physician Patient Instructions: Shortness of Breath (Dyspnea) Add. Discharge Instructions: 1. Return to ER for any concerns. Elevate your leg is much as possible. Try wearing a compression stocking on the right leg during the day off at night which will help with reducing swelling. All discharge instructions reviewed with patient and/or family. Voiced understanding. Work/School Note: Work Release Form Date Seen in the Emergency Department: Jul 21, 2021 Return to Work: Jul 22, 2021 ATTENDING PHYSICIAN NOTE: I was physically present as attending physician in the emergency department during the care of this patient, but I was not directly involved in the decision making or delivery of care for this patient. (KIERA MCMILLAN MD) AMANDA FORTUNE APRN Jul 21, 2021 19:59 KIERA MCMILLAN MD Jul 22, 2021 03:14
[2021-07-21] MEDS ORDERED: LORazepam INJ 2 MG/ML (ATIVAN) VIAL IVP PRN (20:00)
[2021-07-21] MEDS ORDERED: KETOROLAC 30 MG/ML VIAL IVP ONE (20:00)
[2021-07-21 20:07] LABS: BASOPHILS # (AUTO) 0.1 10^3/uL (0.0-0.1); BASOPHILS % (AUTO) 1 % (0-10); EOSINOPHILS # (AUTO) 0.3 10^3/uL (0.0-0.3); EOSINOPHILS % (AUTO) 4 % (0-10); HEMATOCRIT 47 % (35-52); HEMOGLOBIN 15.3 g/dL (11.5-16.0); LYMPHOCYTES # (AUTO) 3.3 10^3/uL (1.0-4.0); LYMPHOCYTES % (AUTO) 43 % (12-44); MEAN CORPUSCULAR HEMOGLOBIN 30 pg (25-34); MEAN CORPUSCULAR HGB CONC 33 g/dL (32-36); MEAN CORPUSCULAR VOLUME 92 fL (80-99); MEAN PLATELET VOLUME 8.9 fL (9.0-12.2); MONOCYTES # (AUTO) 0.6 10^3/uL (0.0-1.0); MONOCYTES % (AUTO) 8 % (0-12); NEUTROPHILS # (AUTO) 3.5 10^3/uL (1.8-7.8); NEUTROPHILS % (AUTO) 44 % (42-75); PLATELET COUNT 296 10^3/uL (130-400); WHITE BLOOD COUNT 7.8 10^3/uL (4.3-11.0)
[2021-07-21 20:25] LABS: ALBUMIN 3.8 GM/DL (3.2-4.5); BILIRUBIN,TOTAL 0.5 MG/DL (0.1-1.0); CALCIUM 9.4 MG/DL (8.5-10.1); CREATININE SERUM 0.8 MG/DL (0.60-1.30); POTASSIUM 3.6 MMOL/L (3.6-5.0); TOTAL PROTEIN 7.1 GM/DL (6.4-8.2)
--- NOTE | 2021-07-21 20:39 | Diagnostic Imaging Report ---
EXAMINATION: Chest radiograph, portable AP view. DATE: 07/21/2021 8:34 PM INDICATION: 41-year-old female, shortness of breath. COMPARISON: February 16, 2019. FINDINGS: Heart size and mediastinal contours are unchanged. There is no identified pneumothorax. There is no large pleural effusion. There is no identified focal airspace consolidation. There are mild left acromioclavicular degenerative changes. IMPRESSION: No identified acute cardiopulmonary abnormality. Dictated by: Dictated on workstation # [id number]
[2021-07-21 21:15] VITALS: BP 134/87
[2021-07-21] MEDS ORDERED: SUMAtriptan 6 MG/0.5 ML (IMITREX) INJ SQ ONE (21:15)
== END 2021-07-21 21:15 | disposition home or self-care (01) ==
LOC: EDUNIT# 19:11 → ER 19:13
DX: R60.0 Localized edema (principal); F41.9 Anxiety disorder, unspecified; R06.02 Shortness of breath; Z91.040 Latex allergy status; Z32.02 Encounter for pregnancy test, result negative
CPT/HCPCS: 36415; 71045; 80053; 83880; 84703; 85025; 85379

== ENCOUNTER 2021-08-05 16:30 | Emergency (ER) | payer MEDICAID ==
[~2021-08-05] VITALS: Ht 167 cm; Wt 127.0 kg
[2021-08-05] MEDS ORDERED: IBUPROFEN 800 MG (MOTRIN) TAB PO ONE (16:45)
[2021-08-05] MEDS ORDERED: HYDROcodone/APAP 5 MG/325 MG (LORTAB) TAB PO ONE (16:45)
--- NOTE | 2021-08-05 16:47 | ED Fall/Injury ---
General Chief Complaint: Trauma-Non Activation Stated Complaint: FELL ON SIDEWALK Source: patient Exam Limitations: no limitations History of Present Illness Date Seen by Provider: Aug 05, 2021 Time Seen by Provider: 16:41 Initial Comments To ER by private vehicle with reports of 2 falls today. Initially this morning and then a recurrent fall this afternoon just prior to arrival. C/o pain to medial proximal left thigh, left wrist pain, right neck pain, mid low back pain. Occurred: just prior to arrival Severity: moderate Injuries/Pain Location: neck, upper extremity Loss of Consciousness: no loss of consciousness Associated Symptoms (Fall): Neck Pain Allergies and Home Medications Allergies Coded Allergies: Penicillins (Verified Allergy, Unknown, 01/28/19) haloperidol (Verified Allergy, Unknown, 01/28/19) latex (Verified Allergy, Unknown, 01/28/19) promethazine (Verified Allergy, Unknown, 01/28/19) Patient Home Medication List Home Medication List Reviewed: Yes Methocarbamol (Robaxin-750) 750 Mg Tablet, 750 MG PO Q6H PRN for PAIN-MODERATE Prescribed by: AMANDA FORTUNE on 01/28/19 1059 Review of Systems Review of Systems Constitutional: see HPI Eyes: No Symptoms Reported Ears, Nose, Mouth, Throat: no symptoms reported Respiratory: no symptoms reported Cardiovascular: no symptoms reported Genitourinary: no symptoms reported Musculoskeletal: see HPI Skin: no symptoms reported Psychiatric/Neurological: No Symptoms Reported Past Dltdard-Okjmwe-Nzuorh Hx Immunizations Up To Date Tetanus Booster (TDap): Unknown PED Vaccines UTD: Yes First/Initial COVID19 Vaccinat: 2020 Second COVID19 Vaccination Guo: 2020 Seasonal Allergies Seasonal Allergies: No Past Medical History Surgery/Hospitalization HX: Surgeries: Yes (D&C) Appendectomy, Breast, Section, Tonsillectomy Respiratory: No Cardiac: Yes Neurological: Yes Headaches /Migraines Genitourinary: No Gastrointestinal: No Musculoskeletal: Yes Arthritis Endocrine: No HEENT: No Cancer: No Psychosocial: No Physical Exam Vital Signs Capillary Refill : Height, Weight, BMI Height: 5'6.00" Weight: 274lbs. oz. 124.409152em; 43.00 BMI Method:Stated General Appearance: WD/WN, no apparent distress HEENT: PERRL/EOMI, normal ENT inspection, TMs normal Neck: non-tender, full range of motion Respiratory: no respiratory distress, no accessory muscle use Gastrointestinal: normal bowel sounds, non tender, soft Extremities: normal range of motion, non-tender, other (tenderness to palpation of left radial wrist, no deformity or ecchymosis) Neurologic/Psychiatric: alert, normal mood/affect, oriented x 3 Skin: normal color, warm/dry Jerica Coma Score Best Eye Response: (4) Open Spontaneously Best Verbal Response: (5) Oriented Best Motor Response: (6) Obeys Commands Jerica Total: 15 Progress/Results/Core Measures Results/Orders My Orders Orders - AMANDA FORTUNE APRN Hydrocodone/Apap 5/325 Tablet (Lortab 5 (08/05/21 16:45) Ibuprofen Tablet (Motrin Tablet) (08/05/21 16:45) Departure Impression Primary Impression: Wrist sprain Qualified Codes: S63.502A - Unspecified sprain of left wrist, initial encounter Additional Impressions: Cervical myofascial strain Qualified Codes: S16.1XXA - Strain of muscle, fascia and tendon at neck level, initial encounter Strain of left hip adductor muscle Qualified Codes: S76.012A - Strain of muscle, fascia and tendon of left hip, initial encounter Disposition: HOME, SELF-CARE Condition: Stable Departure-Patient Inst. Decision time for Depature: 16:46 Referrals: LACEY MARTINEZ MD (PCP) Primary Care Physician Patient Instructions: Muscle Strain ED Add. Discharge Instructions: . Wear the wrist splint at all times until you follow-up with primary care. If you have ongoing pain they can discuss further imaging with you. Tylenol and ibuprofen for pain control. Return to ER for any worsening. All discharge instructions reviewed with patient and/or family. Voiced understanding. Work/School Note: Work Release Form Date Seen in the Emergency Department: Aug 05, 2021 Return to Work: Aug 07, 2021 AMANDA FORTUNE APRN Aug 05, 2021 16:46
--- NOTE | 2021-08-05 17:19 | Diagnostic Imaging Report ---
EXAMINATION: Lumbosacral spine 2 or 3 views. HISTORY: Fall on ice. Pain. COMPARISON: None available. FINDINGS: There is normal height and alignment of the vertebral bodies. No fractures or subluxations appreciated. There is intervertebral disc space narrowing at L5-S1 with adjacent facet hypertrophy. The remaining intervertebral disc spaces are maintained. Soft tissues are unremarkable. IMPRESSION: Degenerative findings with no acute process appreciated. Dictated by: Dictated on workstation # [id number]
--- NOTE | 2021-08-05 17:21 | Diagnostic Imaging Report ---
INDICATION: Fall on ice, pain. EXAMINATION: Left wrist, 08/05/2021. FINDINGS: 3 views of the wrist. FINDINGS: There is no evidence for an acute fracture or dislocation. The joint spaces are well maintained. There is no significant soft tissue swelling. IMPRESSION: No acute process. Dictated by: Dictated on workstation # [id number]
--- NOTE | 2021-08-05 17:22 | Diagnostic Imaging Report ---
INDICATION: Status post fall, pain. EXAMINATION: Cervical spine from 08/05/2021. FINDINGS: Four views of the cervical spine. There is normal height and alignment of the vertebral bodies. No subluxations or fractures appreciated. Prevertebral soft tissues appear unremarkable. Visualized lung apices are clear. IMPRESSION: 1. No acute process. Dictated by: Dictated on workstation # [id number]
[2021-08-05 17:35] VITALS: BP 134/85
== END 2021-08-05 17:35 | disposition home or self-care (01) ==
LOC: EDUNIT# 16:30 → ER 16:36
DX: S63.502A Unspecified sprain of left wrist, initial encounter (principal); S16.1XXA Strain of muscle, fascia and tendon at neck level, initial encounter; S76.012A Strain of muscle, fascia and tendon of left hip, initial encounter; Z91.040 Latex allergy status; W18.30XA Fall on same level, unspecified, initial encounter
CPT/HCPCS: 72040; 72100; 73110

== ENCOUNTER 2021-11-26 17:29 | Emergency (ER) | payer MEDICAID ==
[~2021-11-26] VITALS: Ht 168 cm; Wt 133.0 kg
[2021-11-26] MEDS ORDERED: LACTATED RINGERS 1,000 ML IV ONE (18:15)
[2021-11-26] MEDS ORDERED: KETOROLAC 30 MG/ML VIAL IVP ONE (18:15)
[2021-11-26] MEDS ORDERED: SUMAtriptan 6 MG/0.5 ML (IMITREX) INJ SQ ONE (18:15)
[2021-11-26] MEDS ORDERED: ONDANSETRON 4 MG/2 ML (SDV) Z0FRAN IVP ONE (18:15)
[2021-11-26] MEDS ORDERED: PROCHLORPERAZINE 10 MG/2ML INJ (COMPAZINE) IV ONE (18:15)
[2021-11-26] MEDS ORDERED: diphenhydrAMINE 50 MG/ML INJ (BENADRYL) IVP ONE (18:15)
--- NOTE | 2021-11-26 18:18 | ED Headache ---
General Chief Complaint: Head/Cervical Problems Stated Complaint: VOMITING/DIARRHEA/SYNCOPE/MIGRAINE Nursing Triage Note: PT STATES HX OF MIGRAINES AND SEIZURES, STATES SHE WORKS NIGHTS AND GOT UP AND HAD A SYNCOPAL EPISODE, WAS NEXT TO THE COUCH SO SHE DID NOT FALL AND HURT HERSELF. MIGRAINES START IN THE BASE OF HER NECK LT SIDE AND IT IS UP INTO HER LT YAZIDISM NOW. NAUSEA AND VOMITING, FEELS DEHYDRATED. Source: patient Exam Limitations: no limitations History of Present Illness Date Seen by Provider: November 26, 2021 Time Seen by Provider: 17:59 Initial Comments Patient to the ER by private conveyance from home with a history of migraines and seizures and a prodromal syndrome starting about an hour ago of a seizure. She does not think she had a seizure but had a near syncopal episode landed on the couch witnessed by her daughter. She was only out for a few seconds but feels like her muscles were tight like she had been flexing when she had had a seizure. No postictal state. She did however start to get a migraine started from the back of her head radiating forward to the left frontal across to the right frontal. Throbbing. She describes mild photophobia. No other weakness confusion. She has had nausea and tried drinking something and about 10 to 20 minutes later vomited it up and then continue to vomit up bile. She is out of Zofran at home and is afraid anything she would take for her migraine will be ineffective. She has not taken her Imitrex because she says when its gotten this bad in the past she has had to come to the hospital for IV fluids and nausea medicine. She has recently been treated by azithromycin for chronic bronchitis. No fevers chills dysuria diarrhea. Her nausea and vomiting predated the headache today and she thinks was brought on by the azithromycin that she has been taking for 4 days. Allergies and Home Medications Allergies Coded Allergies: Penicillins (Verified Allergy, Unknown, 01/28/19) haloperidol (Verified Allergy, Unknown, 01/28/19) latex (Verified Allergy, Unknown, 01/28/19) promethazine (Verified Allergy, Unknown, 01/28/19) Patient Home Medication List Home Medication List Reviewed: Yes Methocarbamol (Robaxin-750) 750 Mg Tablet, 750 MG PO Q6H PRN for PAIN-MODERATE Prescribed by: AMANDA FORTUNE on 01/28/19 1059 Ondansetron (Ondansetron Odt) 4 Mg Tab.rapdis, 4 MG PO Q6H PRN for NAUSEA/VOMITING Prescribed by: JENNIFER REYNOSO on 11/26/21 1825 Review of Systems Review of Systems Constitutional: No chills, No fever; malaise Eyes: See HPI; Denies Blindness, Denies Blurred Vision Ears, Nose, Mouth, Throat: see HPI; denies ear pain, denies ear discharge Respiratory: cough, phlegm; No short of breath, No wheezing, No other Cardiovascular: No chest pain, No edema Gastrointestinal: No abdominal pain; nausea, vomiting : No Musculoskeletal: No back pain, No joint pain All Other Systems Reviewed Negative Unless Noted: Yes Past Umdelkj-Ktqnap-Skavdi Hx Patient Social History Tobacco Use?: No Use of E-Cig and/or Vaping dev: No Substance use?: Yes Substance type: Other Alcohol Use?: No Alcohol Frequency: Rarely Immunizations Up To Date Tetanus Booster (TDap): Unknown PED Vaccines UTD: Yes First/Initial COVID19 Vaccinat: 2019 Second COVID19 Vaccination Ugo: 2020 Third COVID19 Vaccination Date: 2019 Seasonal Allergies Seasonal Allergies: No Past Medical History Surgery/Hospitalization HX: 8 , 3 RT FOOT SURGERIES, 3 BREAST REDUCTIONS, TONSILS, APPENDIX Surgeries: Yes (D&C) Appendectomy, Breast, Section, Tonsillectomy Respiratory: No Cardiac: Yes Neurological: Yes Headaches /Migraines Last Menstrual Period: November 08, 2021 Genitourinary: No Gastrointestinal: No Musculoskeletal: Yes Arthritis Endocrine: No HEENT: No Cancer: No Psychosocial: No Physical Exam Vital Signs Vital Signs - First Documented 11/26/21 17:50 Temp 37.0 Pulse 110 Resp 20 B/P (MAP) 145/83 (103) Pulse Ox 95 O2 Delivery Room Air Capillary Refill : Less Than 3 Seconds Height, Weight, BMI Height: 5'6.00" Weight: 274lbs. oz. 124.430532zr; 47.00 BMI Method:Stated General Appearance: WD/WN, no apparent distress HEENT: PERRL/EOMI (4 mm reactive bilateral), normal ENT inspection, TMs normal, pharynx normal Neck: non-tender, full range of motion, supple, normal inspection Cardiovascular: normal peripheral pulses, regular rate, rhythm Respiratory: lungs clear, normal breath sounds, no respiratory distress, no accessory muscle use Gastrointestinal: normal bowel sounds, non tender, soft, no organomegaly Extremities: non-tender, normal inspection Psychiatric: alert, oriented x 3 Crainal Nerves: normal hearing, normal speech, PERRL Motor/Sensory: no motor deficit, no sensory deficit Skin: normal color, warm/dry Progress/Results/Core Measures Results/Orders Lab Results Laboratory Tests Test 11/26/21 18:15 11/26/21 18:50 Range/Units White Blood Count 9.0 4.3-11.0 10^3/uL Red Blood Count 5.14 H 3.80-5.11 10^6/uL Hemoglobin 15.9 11.5-16.0 g/dL Hematocrit 47 35-52 % Mean Corpuscular Volume 91 80-99 fL Mean Corpuscular Hemoglobin 31 25-34 pg Mean Corpuscular Hemoglobin Concent 34 32-36 g/dL Red Cell Distribution Width 12.1 10.0-14.5 % Platelet Count 309 130-400 10^3/uL Mean Platelet Volume 8.9 L 9.0-12.2 fL Immature Granulocyte % (Auto) 0 % Neutrophils (%) (Auto) 48 42-75 % Lymphocytes (%) (Auto) 38 12-44 % Monocytes (%) (Auto) 9 0-12 % Eosinophils (%) (Auto) 4 0-10 % Basophils (%) (Auto) 1 0-10 % Neutrophils # (Auto) 4.3 1.8-7.8 10^3/uL Lymphocytes # (Auto) 3.4 1.0-4.0 10^3/uL Monocytes # (Auto) 0.8 0.0-1.0 10^3/uL Eosinophils # (Auto) 0.4 H 0.0-0.3 10^3/uL Basophils # (Auto) 0.1 0.0-0.1 10^3/uL Immature Granulocyte # (Auto) 0.0 0.0-0.1 10^3/uL Sodium Level 140 135-145 MMOL/L Potassium Level 3.8 3.6-5.0 MMOL/L Chloride Level 105 98-107 MMOL/L Carbon Dioxide Level 21 21-32 MMOL/L Anion Gap 14 5-14 MMOL/L Blood Urea Nitrogen 7 7-18 MG/DL Creatinine 0.67 0.60-1.30 MG/DL Estimat Glomerular Filtration Rate 111 BUN/Creatinine Ratio 10 Glucose Level 103 70-105 MG/DL Calcium Level 9.1 8.5-10.1 MG/DL Serum Test, Qualitative NEGATIVE NEGATIVE My Orders Orders - JENNIFER REYNOSO Ed Iv/Invasive Line Start (11/26/21 18:11) Lactated Ringers (Lr 1000 Ml Iv Solution (11/26/21 18:15) Prochlorperazine Injection (Compazine In (11/26/21 18:15) Diphenhydramine Injection (Benadryl Inje (11/26/21 18:15) Sumatriptan Injection (Imitrex Injection (11/26/21 18:15) Ketorolac Injection (Toradol Injection) (11/26/21 18:15) Ondansetron Injection (Zofran Injectio (11/26/21 18:15) Cbc With Automated Diff (11/26/21 18:11) Basic Metabolic Panel (11/26/21 18:11) Hcg,Qualitative Serum (11/26/21 18:26) Medications Given in ED Current Medications Medications Dose Ordered Sig/Barb Route Start Time Stop Time Status Last Admin Dose Admin Diphenhydramine HCl 25 mg ONCE ONCE IVP 11/26/21 18:15 11/26/21 18:16 DC 11/26/21 18:32 25 MG Ketorolac Tromethamine 30 mg ONCE ONCE IVP 11/26/21 18:15 11/26/21 18:16 DC 11/26/21 18:32 30 MG Lactated Ringer's 1,000 ml @ 0 mls/hr Q0M ONCE IV 11/26/21 18:15 11/26/21 18:16 DC 11/26/21 18:30 1,000 MLS/HR Ondansetron HCl 8 mg ONCE ONCE IVP 11/26/21 18:15 11/26/21 18:16 DC 11/26/21 18:31 8 MG Prochlorperazine Edisylate 10 mg ONCE ONCE IV 11/26/21 18:15 11/26/21 18:16 DC 11/26/21 18:32 10 MG Sumatriptan Succinate 6 mg ONCE ONCE SQ 11/26/21 18:15 11/26/21 18:16 DC 11/26/21 18:31 6 MG Vital Signs/I&O 11/26/21 11/26/21 11/26/21 17:50 18:31 18:32 Temp 37.0 37.0 37.0 Pulse 110 Resp 20 B/P (MAP) 145/83 (103) Pulse Ox 95 O2 Delivery Room Air Blood Pressure Mean: 103 Progress Progress Note #1: Time: 18:13 Progress Note A liter of lactated Ringer's, basic labs to assess kidney function and white count given her bronchitis flare. Imitrex, Toradol, Zofran, Compazine, Benadryl. Progress Note #2: Time: 19:29 Progress Note The patient is significantly improved. She is having no nausea and her headache is better. Her fluids are 90% done. Were going to let her go home and return to work tomorrow. She is okay with this plan Departure Impression Primary Impression: Migraine headache with aura Qualified Codes: G43.109 - Migraine with aura, not intractable, without status migrainosus Additional Impressions: Near syncope Mild dehydration Chronic bronchitis Qualified Codes: J41.0 - Simple chronic bronchitis Disposition: 01 HOME, SELF-CARE Condition: Stable Departure-Patient Inst. Decision time for Depature: 19:28 Referrals: LACEY MARTINEZ MD (PCP/Family) Primary Care Physician Patient Instructions: Migraines (DC) Add. Discharge Instructions: Drink plenty of fluids especially sports drinks. Avoid caffeine and heat. Tylenol 1000 mg every 8 hours needed for pain. Ibuprofen 800 mg every 8 hours as needed for pain. Zofran 1 tablet every 6 hours as needed for nausea and/or vomiting. Get plenty of rest. Imodium 2 tablets for loose, watery stools. Take 1 tablet every 4 hours afterwards that you are still having loose, watery stool. You may have a second dose of 6 mg Imitrex subcutaneous greater than 1 hour after your initial dose but no more than 12 milligrams within 24 hours. All discharge instructions reviewed with patient and/or family. Voiced understanding. Scripts Ondansetron (Ondansetron Odt) 4 Mg Tab.rapdis 4 MG PO Q6H PRN for NAUSEA/VOMITING, #15 TAB 0 Refills Prov: JENNIFER REYNOSO 5/28/22 Work/School Note: Work Release Form Date Seen in the Emergency Department: November 26, 2021 Return to Work: November 27, 2021 Restrictions: No Restrictions JENNIFER REYNOSO November 26, 2021 18:18
[2021-11-26] MEDS ORDERED: ONDA4TAB11 PO (18:25)
[2021-11-26 18:27] LABS: BASOPHILS # (AUTO) 0.1 10^3/uL (0.0-0.1); BASOPHILS % (AUTO) 1 % (0-10); EOSINOPHILS # (AUTO) 0.4 10^3/uL (0.0-0.3); EOSINOPHILS % (AUTO) 4 % (0-10); HEMATOCRIT 47 % (35-52); HEMOGLOBIN 15.9 g/dL (11.5-16.0); LYMPHOCYTES # (AUTO) 3.4 10^3/uL (1.0-4.0); LYMPHOCYTES % (AUTO) 38 % (12-44); MEAN CORPUSCULAR HEMOGLOBIN 31 pg (25-34); MEAN CORPUSCULAR HGB CONC 34 g/dL (32-36); MEAN CORPUSCULAR VOLUME 91 fL (80-99); MEAN PLATELET VOLUME 8.9 fL (9.0-12.2); MONOCYTES # (AUTO) 0.8 10^3/uL (0.0-1.0); MONOCYTES % (AUTO) 9 % (0-12); NEUTROPHILS # (AUTO) 4.3 10^3/uL (1.8-7.8); NEUTROPHILS % (AUTO) 48 % (42-75); PLATELET COUNT 309 10^3/uL (130-400)
[2021-11-26 18:51] LABS: POTASSIUM 3.8 MMOL/L (3.6-5.0)
[2021-11-26 18:53] LABS: CALCIUM 9.1 MG/DL (8.5-10.1)
[2021-11-26 18:57] LABS: CREATININE SERUM 0.67 MG/DL (0.60-1.30)
[2021-11-26 19:37] VITALS: BP 114/64
== END 2021-11-26 19:40 | disposition home or self-care (01) ==
LOC: EDUNIT# 17:29 → ER 17:30
DX: G43.109 Migraine with aura, not intractable, without status migrainosus (principal); R55 Syncope and collapse; E86.0 Dehydration; J41.0 Simple chronic bronchitis; Z88.0 Allergy status to penicillin; Z32.02 Encounter for pregnancy test, result negative
CPT/HCPCS: 36415; 80048; 84703; 85025

== ENCOUNTER 2021-12-05 12:14 | Emergency (ER) | payer MEDICAID ==
[~2021-12-05] VITALS: Ht 167 cm; Wt 140.0 kg
[~2021-12-05 12:14] MED LIST changes: +ONDA4TAB11 PO
--- NOTE | 2021-12-05 12:53 | ED EENT ---
History of Present Illness General Chief Complaint: Dental Problems/Pain Stated Complaint: DENTAL PAIN Source: patient Exam Limitations: no limitations History of Present Illness Date Seen by Provider: Dec 05, 2021 Time Seen by Provider: 12:48 Initial Comments Patient is a 41-year-old female presents ED with right upper dental pain. Dental pain started around 2:00 this morning. She noted some swelling and a possible abscess to her right upper molars. She states she has had 2 root canals to her molars in the past. She states she has had cavities. She states that she has had issues with her teeth since giving to her twins 3 years ago. She states she cannot tolerate the pain and not able to eat. She took anti-inflammatories at home without much improvement. Denies headache, dizziness, nausea vomiting diarrhea fever, chills Allergies and Home Medications Allergies Coded Allergies: Penicillins (Verified Allergy, Unknown, 01/28/19) haloperidol (Verified Allergy, Unknown, 01/28/19) latex (Verified Allergy, Unknown, 01/28/19) promethazine (Verified Allergy, Unknown, 01/28/19) Patient Home Medication List Home Medication List Reviewed: Yes Clindamycin HCl (Clindamycin HCl) 300 Mg Capsule, 300 MG PO QID Prescribed by: EVETTE SIERRA on 12/05/21 1406 Hydrocodone/Acetaminophen (Hydrocodone-Acetamin 5-325 mg) 5 Mg-325 Mg Tablet, 1 TAB PO Q4H PRN for PAIN-MODERATE (5-7) Prescribed by: EVETTE SIERRA on 12/05/21 1407 Methocarbamol (Robaxin-750) 750 Mg Tablet, 750 MG PO Q6H PRN for PAIN-MODERATE Prescribed by: AMANDA FORTUNE on 01/28/19 1059 Ondansetron (Ondansetron Odt) 4 Mg Tab.rapdis, 4 MG PO Q6H PRN for NAUSEA/VOMITING Prescribed by: JENNIFER REYNOSO on 11/26/21 1825 Review of Systems Review of Systems Constitutional: No chills, No diaphoresis, No malaise, No weakness Eyes: Denies Decreased Acuity Ears: Denies Dizziness, Denies Pain, Denies Tinnitus, Denies Bloody Discharge, Denies Clear Discharge Nose: denies clots, denies congestion Mouth: pain, swelling, other (dental pain) Throat: denies swelling Respiratory: No cough, No dyspnea on exertion Gastrointestinal: No abdominal pain, No diarrhea, No nausea, No vomiting Musculoskeletal: No back pain Skin: No change in color, No change in hair/nails All Other Systems Reviewed Negative Unless Noted: Yes Past Jkkcqro-Mvnidp-Ektwdn Hx Immunizations Up To Date Tetanus Booster (TDap): Unknown PED Vaccines UTD: Yes First/Initial COVID19 Vaccinat: 2019 Second COVID19 Vaccination Ugo: 2020 Third COVID19 Vaccination Date: 2019 Seasonal Allergies Seasonal Allergies: No Past Medical History Surgery/Hospitalization HX: 8 , 3 RT FOOT SURGERIES, 3 BREAST REDUCTIONS, TONSILS, APPENDIX Surgeries: Yes (D&C) Appendectomy, Breast, Section, Tonsillectomy Respiratory: No Cardiac: Yes Neurological: Yes Headaches /Migraines Genitourinary: No Gastrointestinal: No Musculoskeletal: Yes Arthritis Endocrine: No HEENT: No Cancer: No Psychosocial: No Physical Exam Vital Signs Vital Signs - First Documented 12/05/21 12:41 Temp 36.0 Pulse 95 Resp 18 B/P (MAP) 120/87 (98) Pulse Ox 98 O2 Delivery Room Air Height, Weight, BMI Height: 5'6.00" Weight: 274lbs. oz. 124.056875gg; 47.00 BMI Method:Stated General Appearance: WD/WN, no apparent distress Eyes: bilateral eye normal inspection, bilateral eye PERRL, bilateral eye EOMI Ears: bilateral ear auricle normal, bilateral ear canal normal, bilateral ear TM normal Nose: normal inspection Mouth/Throat: other (Periodontal abscess to right upper molar. No active yue inage.) Neck: non-tender, full range of motion, supple, normal inspection Cardiovascular: regular rate, rhythm, no edema, no gallop, no JVD Respiratory: chest non-tender, lungs clear, normal breath sounds, no respiratory distress, no accessory muscle use Gastrointestinal: normal bowel sounds, non tender, soft, no organomegaly Skin: normal color, warm/dry Procedures/Interventions Dental Procedures: Dental I&D (1% lidocaine 2 mils was used and at the size around the right first molar. Small incision 18-gauge needle was used with small amount of purulent drainage. Successful procedure) Progress/Results/Core Measures Results/Orders My Orders Orders - NICOLE NIELSON Hydrocodone/Apap 5/325 Tablet (Lortab 5 (12/05/21 13:30) Clindamycin Capsule (Cleocin Capsule) (12/05/21 13:26) Medications Given in ED Current Medications Medications Dose Ordered Sig/Barb Route Start Time Stop Time Status Last Admin Dose Admin Acetaminophen/ Hydrocodone Bitart 1 ea ONCE ONCE PO 12/05/21 13:30 12/05/21 13:31 DC 12/05/21 13:24 1 EA Vital Signs/I&O 12/05/21 12/05/21 12:41 14:18 Temp 36.0 36.5 Pulse 95 85 Resp 18 16 B/P (MAP) 120/87 (98) 130/91 Pulse Ox 98 98 O2 Delivery Room Air Room Air Departure Communication (PCP) Patient with a right upper periodontal abscess. Made a small incision with small amount of purulent drainage. Significant provement. Patient had a vasovagal response here. She states she felt dizzy and lightheaded right before. patient did not have any convulsions. She simply fell back into the pillow. Patient woke up within 5 seconds. Patient was observed for an hour. Patient ate and drank without difficulties. Pain improved and was given oral pain medication. A Ride picked up patient here. Continue monitoring at home. Was started on clindamycin allergic to penicillins. She states she feels much better at this time. Follow-up with dentist outpatient Jalen Impression Primary Impression: Dental abscess Disposition: HOME, SELF-CARE Condition: Stable Departure-Patient Inst. Decision time for Depature: 14:05 Referrals: LACEY MARTINEZ MD (PCP/Family) Primary Care Physician Patient Instructions: Dental Pain ED Scripts Hydrocodone/Acetaminophen (Hydrocodone-Acetamin 5-325 mg) 5 Mg-325 Mg Tablet 1 TAB PO Q4H PRN for PAIN-MODERATE (5-7), #6 TAB Prov: NICOLE NIELSON 12/05/21 Clindamycin HCl (Clindamycin HCl) 300 Mg Capsule 300 MG PO QID for 7 Days, #28 CAP Prov: NICOLE NIELSON 12/05/21 NICOLE NIELSON Dec 05, 2021 12:53
[2021-12-05] MEDS ORDERED: CLINDAMYCIN 150 MG (CLEOCIN) CAP PO STA (13:26)
[2021-12-05] MEDS ORDERED: HYDROcodone/APAP 5 MG/325 MG (LORTAB) TAB PO ONE (13:30)
[2021-12-05] MEDS ORDERED: ACHD5005 PO (14:06)
[2021-12-05] MEDS ORDERED: CLIN-144 PO (14:06)
[2021-12-05 14:18] VITALS: BP 130/91
== END 2021-12-05 14:18 | disposition home or self-care (01) ==
LOC: EDUNIT# 12:14 → ER 12:15
DX: K04.7 Periapical abscess without sinus (principal)
CPT/HCPCS: 99283

== ENCOUNTER 2021-12-12 12:57 | Emergency (ER) | payer MEDICAID ==
[~2021-12-12] VITALS: Ht 168 cm; Wt 113.0 kg
[~2021-12-12 12:57] MED LIST changes: +ACHD5005 PO; +CLIN-144 PO
[2021-12-12] MEDS ORDERED: NS IV 1000 ML 1,000 ML IV STA (13:34)
--- NOTE | 2021-12-12 13:40 | ED Abdominal Pain ---
General Chief Complaint: Abdominal/GI Problems Stated Complaint: POSS PREG - HEADACHE - VOMITING Source of Information: Patient Exam Limitations: No Limitations History of Present Illness Date Seen by Provider: Dec 12, 2021 Time Seen by Provider: 13:36 Initial Comments Patient is a 41-year-old female who presents to the ED lower abdominal cramping. Started this morning. Bilateral lower pelvic. She states she has a history of high risk . She had a positive and negative test at home. She is G 10 P9. She denies of any urinary symptoms, vaginal bleeding, vaginal discharge. Last menstrual cycle was mild month ago. Started having vomiting and migraine this morning. Migraine improved. Patient vomited 3 times this morning. She states she was out in the sun and heat and felt nauseous and developed a headache. History of migraines states feels similar. She is requesting IV fluids as she states she feels dehydrated and test. Denies chest pain, shortness of breath, cough, neck pain Allergies and Home Medications Allergies Coded Allergies: Penicillins (Verified Allergy, Unknown, 01/28/19) haloperidol (Verified Allergy, Unknown, 01/28/19) latex (Verified Allergy, Unknown, 01/28/19) promethazine (Verified Allergy, Unknown, 01/28/19) Patient Home Medication List Home Medication List Reviewed: Yes Clindamycin HCl (Clindamycin HCl) 300 Mg Capsule, 300 MG PO QID Prescribed by: EVETTE SIERRA on 12/05/21 1406 Hydrocodone/Acetaminophen (Hydrocodone-Acetamin 5-325 mg) 5 Mg-325 Mg Tablet, 1 TAB PO Q4H PRN for PAIN-MODERATE (5-7) Prescribed by: EVETTE SIERRA on 12/05/21 1407 Methocarbamol (Robaxin-750) 750 Mg Tablet, 750 MG PO Q6H PRN for PAIN-MODERATE Prescribed by: AMANDA FORTUNE on 01/28/19 1059 Ondansetron (Ondansetron Odt) 4 Mg Tab.rapdis, 4 MG PO Q6H PRN for NAUSEA/VOMITING Prescribed by: JENNIFER REYNOSO on 11/26/21 1825 Review of Systems Review of Systems Constitutional: No chills, No diaphoresis, No malaise EENTM: No Blurred Vision, No Eye Pain Respiratory: Denies Cough Gastrointestinal: Abdominal Pain; Denies Diarrhea; Nausea, Vomiting Genitourinary: Denies Burning, Denies Discharge, Denies Flank Pain, Denies Hematuria Musculoskeletal: No back pain, No joint pain Skin: No change in color All Other Systems Reviewed Negative Unless Noted: Yes Past Ihfpcys-Ghoiar-Nxvoll Hx Immunizations Up To Date Tetanus Booster (TDap): Unknown PED Vaccines UTD: Yes First/Initial COVID19 Vaccinat: 07/2020 Second COVID19 Vaccination Ugo: 08/220 Third COVID19 Vaccination Date: 2019 Seasonal Allergies Seasonal Allergies: No Past Medical History Surgery/Hospitalization HX: 8 , 3 RT FOOT SURGERIES, 3 BREAST REDUCTIONS, TONSILS, APPENDIX DENIES PMH. Surgeries: Yes (D&C) Appendectomy, Breast, Section, Tonsillectomy Respiratory: No Cardiac: Yes Neurological: Yes Headaches /Migraines Genitourinary: No Gastrointestinal: No Musculoskeletal: Yes Arthritis Endocrine: No HEENT: No Cancer: No Psychosocial: No Physical Exam Vital Signs Vital Signs - First Documented 12/12/21 13:08 Temp 37.1 Pulse 104 Resp 18 B/P (MAP) 134/91 (105) Pulse Ox 99 O2 Delivery Room Air Capillary Refill : Height/Weight/BMI Height: 5'6.00" Weight: 274lbs. oz. 124.228092qs; 50.00 BMI Method:Stated General Appearance: WD/WN, no apparent distress HEENT: PERRL/EOMI, normal ENT inspection, TMs normal, pharynx normal Neck: non-tender, full range of motion, supple Respiratory: chest non-tender, lungs clear, normal breath sounds, no respiratory distress Cardiovascular: regular rate, rhythm, no edema, no gallop Gastrointestinal: normal bowel sounds, soft, no organomegaly, other (Mild tenderness bilateral lower abdomen bilateral. 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, no motor/sensory deficits, alert, normal mood/affect, oriented x 3 Skin: normal color, warm/dry Procedures/Interventions Dental Procedures: Dental I&D Progress/Results/Core Measures Results/Orders Lab Results Laboratory Tests Test 12/12/21 14:20 Range/Units White Blood Count 10.5 4.3-11.0 10^3/uL Red Blood Count 5.65 H 3.80-5.11 10^6/uL Hemoglobin 17.0 H 11.5-16.0 g/dL Hematocrit 52 35-52 % Mean Corpuscular Volume 92 80-99 fL Mean Corpuscular Hemoglobin 30 25-34 pg Mean Corpuscular Hemoglobin Concent 33 32-36 g/dL Red Cell Distribution Width 12.5 10.0-14.5 % Platelet Count 334 130-400 10^3/uL Mean Platelet Volume 9.3 9.0-12.2 fL Immature Granulocyte % (Auto) 0 % Neutrophils (%) (Auto) 50 42-75 % Lymphocytes (%) (Auto) 38 12-44 % Monocytes (%) (Auto) 8 0-12 % Eosinophils (%) (Auto) 3 0-10 % Basophils (%) (Auto) 1 0-10 % Neutrophils # (Auto) 5.3 1.8-7.8 10^3/uL Lymphocytes # (Auto) 4.0 1.0-4.0 10^3/uL Monocytes # (Auto) 0.8 0.0-1.0 10^3/uL Eosinophils # (Auto) 0.3 0.0-0.3 10^3/uL Basophils # (Auto) 0.1 0.0-0.1 10^3/uL Immature Granulocyte # (Auto) 0.0 0.0-0.1 10^3/uL Sodium Level 136 135-145 MMOL/L Potassium Level 4.1 3.6-5.0 MMOL/L Chloride Level 102 98-107 MMOL/L Carbon Dioxide Level 24 21-32 MMOL/L Anion Gap 10 5-14 MMOL/L Blood Urea Nitrogen 11 7-18 MG/DL Creatinine 0.77 0.60-1.30 MG/DL Estimat Glomerular Filtration Rate 98 BUN/Creatinine Ratio 14 Glucose Level 87 70-105 MG/DL Calcium Level 9.4 8.5-10.1 MG/DL Corrected Calcium 9.2 8.5-10.1 MG/DL Total Bilirubin 0.7 0.1-1.0 MG/DL Aspartate Amino Transf (AST/SGOT) 16 5-34 U/L Alanine Aminotransferase (ALT/SGPT) 16 0-55 U/L Alkaline Phosphatase 77 40-136 U/L Total Protein 7.7 6.4-8.2 GM/DL Albumin 4.3 3.2-4.5 GM/DL Serum Test, Qualitative NEGATIVE NEGATIVE My Orders Orders - NICOLE NIELSON Ua Culture If Indicated (12/12/21 13:10) Hcg,Qualitative Urine (12/12/21 13:10) Cbc With Automated Diff (12/12/21 13:34) Comprehensive Metabolic Panel (12/12/21 13:34) Hcg,Qualitative Urine (12/12/21 13:34) Ns Iv 1000 Ml (Sodium Chloride 0.9%) (12/12/21 13:34) Prochlorperazine Injection (Compazine In (12/12/21 14:45) Diphenhydramine Injection (Benadryl Inje (12/12/21 14:45) Hcg,Qualitative Serum (12/12/21 14:43) Medications Given in ED Current Medications Medications Dose Ordered Sig/Barb Route Start Time Stop Time Status Last Admin Dose Admin Diphenhydramine HCl 25 mg ONCE ONCE IVP 12/12/21 14:45 12/12/21 14:46 DC 12/12/21 14:54 25 MG Prochlorperazine Edisylate 10 mg ONCE ONCE IV 12/12/21 14:45 12/12/21 14:46 DC 12/12/21 14:54 10 MG Vital Signs/I&O 12/12/21 12/12/21 13:08 15:16 Temp 37.1 Pulse 104 96 Resp 18 18 B/P (MAP) 134/91 (105) 136/88 Pulse Ox 99 99 O2 Delivery Room Air Room Air Departure Communication (PCP) Patient is a 41-year-old female presents ED with lower abdominal pain with vomiting. She states she had a positive test at home. She denies of any urinary symptoms but not able to urinate. Patient states she feels dehydrated. Was out in the heat. She was given a liter fluid with normal lab work. Normal serum hCG. Was not able to provide a urine sample for me here. She states she does not want to wait any longer. Pain appears to be in the pelvic region in the left and right lower quadrant. May be start of her me nstrual cycle as she is about 1 month late. Reevaluation of the abdomen without any severe tenderness. She does not appear altered. No seizure-like activity. She states she will return if symptoms worsen. Impression Primary Impression: Abdominal pain Disposition: HOME, SELF-CARE Condition: Stable Departure-Patient Inst. Decision time for Depature: 15:03 Referrals: LACEY MARTINEZ MD (PCP/Family) Primary Care Physician Patient Instructions: Abdominal Pain, Adult ED Add. Discharge Instructions: Further evaluation with primary care physician as needed. If any worsening symptoms return back to ED All discharge instructions reviewed with patient and/or family. Voiced understanding. NICOLE NIELSON Dec 12, 2021 13:40
[2021-12-12 14:35] LABS: BASOPHILS # (AUTO) 0.1 10^3/uL (0.0-0.1); BASOPHILS % (AUTO) 1 % (0-10); EOSINOPHILS # (AUTO) 0.3 10^3/uL (0.0-0.3); EOSINOPHILS % (AUTO) 3 % (0-10); HEMATOCRIT 52 % (35-52); LYMPHOCYTES % (AUTO) 38 % (12-44); MEAN CORPUSCULAR HEMOGLOBIN 30 pg (25-34); MEAN CORPUSCULAR HGB CONC 33 g/dL (32-36); MEAN CORPUSCULAR VOLUME 92 fL (80-99); MEAN PLATELET VOLUME 9.3 fL (9.0-12.2); MONOCYTES # (AUTO) 0.8 10^3/uL (0.0-1.0); MONOCYTES % (AUTO) 8 % (0-12); NEUTROPHILS # (AUTO) 5.3 10^3/uL (1.8-7.8); NEUTROPHILS % (AUTO) 50 % (42-75); PLATELET COUNT 334 10^3/uL (130-400); WHITE BLOOD COUNT 10.5 10^3/uL (4.3-11.0)
[2021-12-12 14:38] LABS: ALBUMIN 4.3 GM/DL (3.2-4.5); POTASSIUM 4.1 MMOL/L (3.6-5.0)
[2021-12-12 14:39] LABS: CALCIUM 9.4 MG/DL (8.5-10.1)
[2021-12-12 14:40] LABS: TOTAL PROTEIN 7.7 GM/DL (6.4-8.2)
[2021-12-12 14:42] LABS: BILIRUBIN,TOTAL 0.7 MG/DL (0.1-1.0)
[2021-12-12 14:44] LABS: CREATININE SERUM 0.77 MG/DL (0.60-1.30)
[2021-12-12] MEDS ORDERED: PROCHLORPERAZINE 10 MG/2ML INJ (COMPAZINE) IV ONE (14:45)
[2021-12-12] MEDS ORDERED: diphenhydrAMINE 50 MG/ML INJ (BENADRYL) IVP ONE (14:45)
[2021-12-12 15:16] VITALS: BP 136/88
== END 2021-12-12 15:15 | disposition home or self-care (01) ==
LOC: EDUNIT# 12:57 → ER 12:58
DX: R11.2 Nausea with vomiting, unspecified (principal); R10.31 Right lower quadrant pain; R10.32 Left lower quadrant pain; Z32.02 Encounter for pregnancy test, result negative
CPT/HCPCS: 36415; 80053; 84703; 85025; 99281

== ENCOUNTER 2022-01-05 18:11 | Emergency (ER) | payer MEDICAID ==
[~2022-01-05] VITALS: Ht 167.7 cm; Wt 136.1 kg
[2022-01-05 18:15] VITALS: BP 136/110
[2022-01-05] MEDS ORDERED: ASPIRIN 81 MG CHEW (CHILDREN'S ASA) PO ONE (18:30)
[2022-01-05] MEDS ORDERED: CYCLOBENZAPRINE 10 MG (FLEXERIL) TAB PO STA (18:39)
[2022-01-05] MEDS ORDERED: IBUPROFEN 800 MG (MOTRIN) TAB PO STA (18:39)
[2022-01-05 18:41] LABS: BASOPHILS # (AUTO) 0.1 10^3/uL (0.0-0.1); BASOPHILS % (AUTO) 1 % (0-10); EOSINOPHILS # (AUTO) 0.4 10^3/uL (0.0-0.3); EOSINOPHILS % (AUTO) 4 % (0-10); HEMATOCRIT 48 % (35-52); HEMOGLOBIN 16.2 g/dL (11.5-16.0); LYMPHOCYTES # (AUTO) 4.6 10^3/uL (1.0-4.0); LYMPHOCYTES % (AUTO) 43 % (12-44); MEAN CORPUSCULAR HEMOGLOBIN 31 pg (25-34); MEAN CORPUSCULAR HGB CONC 34 g/dL (32-36); MEAN CORPUSCULAR VOLUME 91 fL (80-99); MEAN PLATELET VOLUME 9.1 fL (9.0-12.2); MONOCYTES # (AUTO) 0.7 10^3/uL (0.0-1.0); MONOCYTES % (AUTO) 7 % (0-12); NEUTROPHILS # (AUTO) 4.8 10^3/uL (1.8-7.8); NEUTROPHILS % (AUTO) 45 % (42-75); PLATELET COUNT 326 10^3/uL (130-400); WHITE BLOOD COUNT 10.5 10^3/uL (4.3-11.0)
[2022-01-05 18:52] LABS: POTASSIUM 3.7 MMOL/L (3.6-5.0)
[2022-01-05 18:53] LABS: CALCIUM 9.1 MG/DL (8.5-10.1); INR 0.9 (0.8-1.4); PROTHROMBIN TIME PATIENT 12.6 SEC (12.2-14.7)
--- NOTE | 2022-01-05 18:53 | ED Chest Pain ---
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 PT REPORTS HX OF TACHYCARDIA AND THAT SHE HAS NOT TAKEN HER MEDICTION. PT ORIGINALLY STATES THAT SHE HAS NOT TAKEN MEDS IN X1 YEAR AND THEN STATES 2-3 MONTHS. PT DOES NOT REMEMBER NAME OF MED. History of Present Illness Date Seen by Provider: Jan 05, 2022 Time Seen by Provider: 18:15 Initial Comments 41-year-old female present for chest pain that started at approximately 1745 today. She denies any activity at onset. 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 She was watching TV when her symptoms started. She reports the pain to go across to her chest and even into her upper back. She denies any symptoms like going to her left arm or neck. No previous cardiac events, she has previously been on medication for her heart rate and blood pressure but has not seen her primary care provider in several months and has not had the medication. She reports her grandfather that had a heart attack in his 40s and siblings with cardiac events in their 40s. She denies nausea, vomiting, or diaphoresis at this time. She is uncertain about , her LMP was 12/17/21, uncertain if she is . She is emotional and tearful. Timing/Duration: 1 hour Severity/Quality: moderate Location: substernal Radiation: back Activities at Onset: none ASA po CAGE FIGHTER: No NTG SL CAGE FIGHTER: No Associated Symptoms: denies symptoms Allergies and Home Medications Allergies Coded Allergies: Penicillins (Verified Allergy, Unknown, 01/28/19) haloperidol (Verified Allergy, Unknown, 01/28/19) latex (Verified Allergy, Unknown, 01/28/19) promethazine (Verified Allergy, Unknown, 01/28/19) tramadol (Verified Allergy, Unknown, 01/05/22) Patient Home Medication List Home Medication List Reviewed: Yes Clindamycin HCl (Clindamycin HCl) 300 Mg Capsule, 300 MG PO QID Prescribed by: EVETTE SIERRA on 12/05/21 0674 Hydrocodone/Acetaminophen (Hydrocodone-Acetamin 5-325 mg) 5 Mg-325 Mg Tablet, 1 TAB PO Q4H PRN for PAIN-MODERATE (5-7) Prescribed by: EVETTE SIERRA on 12/05/21 1407 Methocarbamol (Robaxin-750) 750 Mg Tablet, 750 MG PO Q6H PRN for PAIN-MODERATE Prescribed by: AMANDA FORTUNE on 01/28/19 1059 Ondansetron (Ondansetron Odt) 4 Mg Tab.rapdis, 4 MG PO Q6H PRN for NAUS EA/VOMITING Prescribed by: JENNIFER REYNOSO on 11/26/21 1825 Review of Systems Review of Systems Constitutional: no symptoms reported, see HPI Cardiovascular: See HPI, Chest Pain Gastrointestinal: No Symptoms Reported, See HPI Past Dqtntdx-Fhrymc-Wbdkjo Hx Patient Social History Tobacco Use?: Yes Smoking Status: Current Everyday Smoker Smokeless Tobacco Frequency: Never a User Use of E-Cig and/or Vaping dev: No Use of E-Cig and/or Vaping Jamar: Never a User Substance use?: Yes Substance type: Marijuana Substance frequency: Couple times a week Alcohol Use?: No Pt feels they are or have been: No Immunizations Up To Date Tetanus Booster (TDap): Unknown PED Vaccines UTD: Yes First/Initial COVID19 Vaccinat: 07/2020 Second COVID19 Vaccination Ugo: 08/220 Third COVID19 Vaccination Date: 07/2020 COVID19 Vaccine Stave Planer Tender: PlanZap Seasonal Allergies Seasonal Allergies: No Past Medical History Surgery/Hospitalization HX: 8 , 3 RT FOOT SURGERIES, 3 BREAST REDUCTIONS, TONSILS, APPENDIX DENIES PMH. Surgeries: Yes (D&C) Appendectomy, Breast, Section, Tonsillectomy Respiratory: No Cardiac: Yes Neurological: Yes Headaches /Migraines Genitourinary: No Gastrointestinal: No Musculoskeletal: Yes Arthritis Endocrine: No HEENT: No Cancer: No Psychosocial: No Family Medical History Reviewed Nursing Family Hx Physical Exam Vital Signs Vital Signs - First Documented 01/05/22 18:15 Temp 36.7 Pulse 115 Resp 20 B/P (MAP) 136/110 (119) O2 Delivery Room Air Capillary Refill : Less Than 3 Seconds Height, Weight, BMI Height: 5'6.00" Weight: 274lbs. oz. 124.752137ft; 48.00 BMI Method:Stated General Appearance: Anxious Neck: Full Range of Motion, Normal Inspection, Non Tender, Supple Respiratory: No Chest Non Tender (tender to palpation, upper sternum and bilat sternoclavicular); Lungs Clear, Normal Breath Sounds Cardiovascular: No Edema, No Murmur, Tachycardia Gastrointestinal: Normal Bowel Sounds, Non Tender, Soft, Distended Neurologic/Psychiatric: Alert, Oriented x3, No Motor/Sensory Deficits, Normal Mood/Affect Skin: Normal Color, Warm/Dry Procedures/Interventions Dental Procedures: Dental I&D Progress/Results/Core Measures Results/Orders Lab Results Laboratory Tests Test 01/05/22 18:32 Range/Units White Blood Count 10.5 4.3-11.0 10^3/uL Red Blood Count 5.26 H 3.80-5.11 10^6/uL Hemoglobin 16.2 H 11.5-16.0 g/dL Hematocrit 48 35-52 % Mean Corpuscular Volume 91 80-99 fL Mean Corpuscular Hemoglobin 31 25-34 pg Mean Corpuscular Hemoglobin Concent 34 32-36 g/dL Red Cell Distribution Width 12.1 10.0-14.5 % Platelet Count 326 130-400 10^3/uL Mean Platelet Volume 9.1 9.0-12.2 fL Immature Granulocyte % (Auto) 0 % Neutrophils (%) (Auto) 45 42-75 % Lymphocytes (%) (Auto) 43 12-44 % Monocytes (%) (Auto) 7 0-12 % Eosinophils (%) (Auto) 4 0-10 % Basophils (%) (Auto) 1 0-10 % Neutrophils # (Auto) 4.8 1.8-7.8 10^3/uL Lymphocytes # (Auto) 4.6 H 1.0-4.0 10^3/uL Monocytes # (Auto) 0.7 0.0-1.0 10^3/uL Eosinophils # (Auto) 0.4 H 0.0-0.3 10^3/uL Basophils # (Auto) 0.1 0.0-0.1 10^3/uL Immature Granulocyte # (Auto) 0.0 0.0-0.1 10^3/uL Prothrombin Time 12.6 12.2-14.7 SEC INR Comment 0.9 0.8-1.4 Activated Partial Thromboplast Time 30 24-35 SEC Sodium Level 139 135-145 MMOL/L Potassium Level 3.7 3.6-5.0 MMOL/L Chloride Level 105 98-107 MMOL/L Carbon Dioxide Level 23 21-32 MMOL/L Anion Gap 11 5-14 MMOL/L Blood Urea Nitrogen 9 7-18 MG/DL Creatinine 0.76 0.60-1.30 MG/DL Estimat Glomerular Filtration Rate 100 BUN/Creatinine Ratio 12 Glucose Level 133 H 70-105 MG/DL Calcium Level 9.1 8.5-10.1 MG/DL Corrected Calcium 9.1 8.5-10.1 MG/DL Magnesium Level 2.0 1.6-2.4 MG/DL Total Bilirubin 0.4 0.1-1.0 MG/DL Aspartate Amino Transf (AST/SGOT) 16 5-34 U/L Alanine Aminotransferase (ALT/SGPT) 17 0-55 U/L Alkaline Phosphatase 66 40-136 U/L Myoglobin 23.4 10.0-92.0 NG/ML Troponin I < 0.028 <0.028 NG/ML Total Protein 7.1 6.4-8.2 GM/DL Albumin 4.0 3.2-4.5 GM/DL Serum Test, Qualitative NEGATIVE NEGATIVE My Orders Orders - SANDEEP MEZA Cbc With Automated Diff (01/05/22 18:21) Magnesium (01/05/22 18:21) Chest 1 View, Ap/Pa Only (01/05/22 18:21) Ekg Tracing (01/05/22 18:21) Comprehensive Metabolic Panel (01/05/22 18:21) Myoglobin Serum (01/05/22 18:21) Protime With Inr (01/05/22 18:21) Partial Thromboplastin Time (01/05/22 18:21) O2 (01/05/22 18:21) Monitor-Rhythm Ecg Trace Only (01/05/22 18:21) Lipid Panel (01/06/22 06:00) Ed Iv/Invasive Line Start (01/05/22 18:21) Troponin I Gary (01/05/22 18:21) Aspirin Chewable Tablet (Baby Aspirin Ch (01/05/22 18:30) Ekg Tracing (01/05/22 18:21) Cyclobenzaprine Tablet (Flexeril Tablet) (01/05/22 18:39) Ibuprofen Tablet (Motrin Tablet) (01/05/22 18:39) Hcg,Qualitative Serum (01/05/22 18:39) Medications Given in ED Current Medications Medications Dose Ordered Sig/Barb Route Start Time Stop Time Status Last Admin Dose Admin Aspirin 324 mg ONCE ONCE PO 01/05/22 18:30 01/05/22 18:31 DC 01/05/22 18:35 324 MG Vital Signs/I&O 01/05/22 18:15 Temp 36.7 Pulse 115 Resp 20 B/P (MAP) 136/110 (119) O2 Delivery Room Air Blood Pressure Mean: 119 Progress Progress Note : Time: 18:15 Progress Note Patient seen and evaluated, will obtain labs, EKG, monitor heart rate and blood pressure, once hCG is obtained will check chest x-ray. Aspirin 324 mg orally. Flexeril 10 mg and ibuprofen 800 mg. 1824 patient demanded serum HCG, told nurse the provider "wasn't fucking list ening to her about possible being at time of conception." explained to patient that serum HCG was ordered, since she was unable to urinate and needed HCG prior to x-ray. 0 EKG and Chest x-ray normal, awaiting labs. Patient becomes verbally aggressive, with cursing at nurse and provider over simple requests. 0 labs normal, slight improvement in pain after medications. Patient on Valium 5 mg per [employer], receiving 60 tablets monthly. Instructed she could use those for muscle relaxant. Initial ECG Impression Date: Jan 05, 2022 Initial ECG Impression Time: 18:23 Initial ECG Rate: 121 Initial ECG Rhythm: S.Tach Initial ECG Intervals: Normal Initial ECG Intervals VT 120, QRS D 85, QT 338, QTc 410. [place] P 50, RR 39, T 69. Initial ECG Comparisson: Unchanged Diagnostic Imaging Diagonstic Imaging: Xray Plain Films/CT/US/NM/MRI: chest Comments NAME: DENVERSeptember MED REC#: [id number] PT STATUS: REG ER : 1980 PHYSICIAN: SANDEEP MEZA ADMIT DATE: 01/05/22/ER Draft Date of Exam:01/05/22 CHEST 1 VIEW, AP/PA ONLY EXAM: Chest 1 View, AP/PA only INDICATION: Chest pain. COMPARISON: 07/21/2021. FINDINGS: Normal heart size and central pulmonary vascularity. No focal pulmonary opacity. No pleural effusion or pneumothorax. No acute osseous finding. IMPRESSION: No acute cardiopulmonary finding. Dictated on workstation # [id number] Dict: 01/05/221916 Trans: 01/05/221920 [facility] [id number] Interpreted by: JUAN JEROME MD Electronically signed by: Reviewed: Reviewed by Me Departure Impression Primary Impression: Chest pain not due to acute coronary syndrome Additional Impression: Costochondral chest pain Disposition: HOME, SELF-CARE Condition: Improved Departure-Patient Inst. Decision time for Depature: 19:30 Referrals: LACEY MARTINEZ MD (PCP/Family) Primary Care Physician Patient Instructions: Chest Pain That Is Not Caused by the Heart (DC), Costochondritis (DC) Add. Discharge Instructions: alternate warm moist compresses and ice to your chest. Follow up with your Primary Care provider to obtain our medications. Take Aspirin 81 mg once daily. Alternate Tylenol 650 mg and Ibuprofen 600 mg every 4 hours for pain. Continue your home medications. Return to the emergency department for new, urgent healthcare problems. All discharge instructions reviewed with patient and/or family. Voiced understanding. SANDEEP MEZA Jan 05, 2022 18:53
[2022-01-05 18:55] LABS: TOTAL PROTEIN 7.1 GM/DL (6.4-8.2)
[2022-01-05 18:56] LABS: BILIRUBIN,TOTAL 0.4 MG/DL (0.1-1.0)
[2022-01-05 18:58] LABS: CREATININE SERUM 0.76 MG/DL (0.60-1.30)
--- NOTE | 2022-01-05 19:21 | Diagnostic Imaging Report ---
EXAM: Chest 1 View, AP/PA only INDICATION: Chest pain. COMPARISON: 07/21/2021. FINDINGS: Normal heart size and central pulmonary vascularity. No focal pulmonary opacity. No pleural effusion or pneumothorax. No acute osseous finding. IMPRESSION: No acute cardiopulmonary finding. Dictated by: Dictated on workstation # [id number]
== END 2022-01-05 20:03 | disposition home or self-care (01) ==
LOC: EDUNIT# 18:11 → ER 18:13
DX: M94.0 Chondrocostal junction syndrome [Tietze] (principal); F17.200 Nicotine dependence, unspecified, uncomplicated; Z82.49 Family history of ischemic heart disease and other diseases of the circulatory system; Z32.02 Encounter for pregnancy test, result negative
CPT/HCPCS: 36415; 71045; 80053; 83735; 83874; 84484; 84703; 85025; 85610; 85730; 93005; 93041

== ENCOUNTER 2022-01-27 17:59 | Emergency (ER) | payer MEDICAID ==
[~2022-01-27] VITALS: Ht 167 cm; Wt 136.0 kg
[2022-01-27] MEDS ORDERED: NS IV 1000 ML 1,000 ML IV STA (18:44)
[2022-01-27] MEDS ORDERED: KETOROLAC 30 MG/ML VIAL IVP ONE (18:45)
[2022-01-27] MEDS ORDERED: PROCHLORPERAZINE 10 MG/2ML INJ (COMPAZINE) IV ONE (18:45)
[2022-01-27] MEDS ORDERED: diphenhydrAMINE 50 MG/ML INJ (BENADRYL) IVP ONE (18:45)
--- NOTE | 2022-01-27 19:00 | ED Headache ---
General Chief Complaint: Head/Cervical Problems Stated Complaint: MIGRAIN Nursing Triage Note: pt. report left post headache today at 1630. pt. took imitrex inj. at 1700 with no relief, pt. reports med caused "shakiness and dizziness", but pain relief. Prior to this, pt. reports starting Topimax 50mg daily at night 2 days per her Neurologist from [facility] (instructed that the neurologist wants to reach 200mg target therapeutic goal). pt. in no distress. here for eval. Source: patient Exam Limitations: no limitations (NICOLE NIELSON) History of Present Illness Date Seen by Provider: Jan 27, 2022 Time Seen by Provider: 18:59 Initial Comments Patient is a 41-year-old female with a history of migraines and seizures presents ED with migraine. acute onset around 4:00. Pain to the base of her skull with radiation to the top part of her head. Very similar to her previous migraines. Rates pain 7 out of 10 on arrival. She took Imitrex IM shot around 5 which typically resolves her migraine and did not this evening. She does have a neurologist at [facility]. Started taking Topamax 2 days ago for her migraines. She reports photophobia with 1 episode of vomiting. Denies any fever, chills, chest pain, shortness of breath, cough, dizziness, concern for , trauma (NICOLE NIELSON) Allergies and Home Medications Allergies Coded Allergies: Penicillins (Verified Allergy, Unknown, 01/28/19) haloperidol (Verified Allergy, Unknown, 01/28/19) latex (Verified Allergy, Unknown, 01/28/19) promethazine (Verified Allergy, Unknown, 01/28/19) tramadol (Verified Allergy, Unknown, 01/05/22) Patient Home Medication List Home Medication List Reviewed: Yes (NICOLE NIELSON) Clindamycin HCl (Clindamycin HCl) 300 Mg Capsule, 300 MG PO QID Prescribed by: EVETTE SIERRA on 12/05/21 1406 Hydrocodone/Acetaminophen (Hydrocodone-Acetamin 5-325 mg) 5 Mg-325 Mg Tablet, 1 TAB PO Q4H PRN for PAIN-MODERATE (5-7) Prescribed by: EVETTE SIERRA on 12/05/21 1407 Methocarbamol (Robaxin-750) 750 Mg Tablet, 750 MG PO Q6H PRN for PAIN-MODERATE Prescribed by: AMANDA FORTUNE on 01/28/19 1059 Ondansetron (Ondansetron Odt) 4 Mg Tab.rapdis, 4 MG PO Q6H PRN for NAUSEA/VOMITING Prescribed by: JENNIFER REYNOSO on 11/26/21 1825 Review of Systems Review of Systems Constitutional: No chills, No malaise, No weakness Eyes: Denies Blurred Vision Ears, Nose, Mouth, Throat: denies ear pain, denies ear discharge, denies mouth pain Respiratory: No short of breath Cardiovascular: No chest pain Gastrointestinal: No abdominal pain, No diarrhea, No nausea; vomiting Genitourinary: No decreased output, No discharge Musculoskeletal: No back pain, No joint pain Skin: No change in color Psychiatric/Neurological: Headache (NICOLE NIELSON) All Other Systems Reviewed Negative Unless Noted: Yes (NICOLE NIELSON) Past Xgzseol-Tessyt-Fqbbyj Hx Patient Social History Tobacco Use?: Yes Tobacco type used: Hookah Smoking Status: Light Tobacco Smoker Substance use?: No Alcohol Use?: No Pt feels they are or have been: No (NICOLE NIELSON) Immunizations Up To Date Tetanus Booster (TDap): Unknown PED Vaccines UTD: Yes Influenza Vaccine Up-to-Date: Yes; Up-to-Date First/Initial COVID19 Vaccinat: 07/2020 Second COVID19 Vaccination Ugo: 08/220 Third COVID19 Vaccination Date: 07/2020 (NICOLE NIELSON) Seasonal Allergies Seasonal Allergies: No (NICOLE NIELSON) Past Medical History Surgery/Hospitalization HX: 8 , 3 RT FOOT SURGERIES, 3 BREAST REDUCTIONS, TONSILS, APPENDIX DENIES PMH. Surgeries: Yes (D&C) Appendectomy, Breast, Section, Tonsillectomy Respiratory: No Cardiac: Yes Neurological: Yes Headaches /Migraines Last Menstrual Period: Jan 12, 2022 Genitourinary: No Gastrointestinal: No Musculoskeletal: Yes Arthritis Endocrine: No HEENT: No Cancer: No Psychosocial: No (NICOLE NIELSON) Physical Exam Vital Signs Vital Signs - First Documented 01/27/22 01/27/22 18:08 20:31 Temp 36.8 Pulse 100 Resp 18 B/P (MAP) 115/66 Pulse Ox 98 O2 Delivery Room Air (JATIN RUFF DO) Vital Signs Capillary Refill : Less Than 3 Seconds (NICOLE NIELSON) Height, Weight, BMI Height: 5'6.00" Weight: 274lbs. oz. 124.480534vd; 48.00 BMI Method:Stated General Appearance: WD/WN, no apparent distress HEENT: PERRL/EOMI, normal ENT inspection, TMs normal, pharynx normal Neck: non-tender, full range of motion, supple, normal inspection Cardiovascular: regular rate, rhythm, no edema, no JVD Respiratory: chest non-tender, lungs clear, normal breath sounds Gastrointestinal: normal bowel sounds, non tender, soft, no organomegaly Back: normal inspection, no CVA tenderness Extremities: normal range of motion, non-tender, normal inspection Skin: normal color, warm/dry (NICOLE NIELSON) Procedures/Interventions Dental Procedures: Dental I&D (NICOLE NIELSON) Progress/Results/Core Measures Results/Orders Medications Given in ED Current Medications Medications Dose Ordered Sig/Barb Route Start Time Stop Time Status Last Admin Dose Admin Dexamethasone Sodium Phosphate 10 mg ONCE ONCE IV 01/27/22 20:00 01/27/22 20:01 DC 01/27/22 20:04 10 MG Diphenhydramine HCl 25 mg ONCE ONCE IVP 01/27/22 18:45 01/27/22 18:46 DC 01/27/22 19:03 25 MG Ketorolac Tromethamine 30 mg ONCE ONCE IVP 01/27/22 18:45 01/27/22 18:46 DC 01/27/22 19:04 30 MG Magnesium Sulfate/ Dextrose 100 ml @ 100 mls/hr ONCE ONCE IV 01/27/22 20:00 01/27/22 20:33 DC 01/27/22 20:04 100 MLS/HR Prochlorperazine Edisylate 10 mg ONCE ONCE IV 01/27/22 18:45 01/27/22 18:46 DC 01/27/22 19:04 10 MG (JATIN RUFF DO) Vital Signs/I&O 01/27/22 01/27/22 18:08 20:31 Temp 36.8 36.8 Pulse 100 83 Resp 18 16 B/P (MAP) 115/66 Pulse Ox 98 97 O2 Delivery Room Air Room Air 01/28/22 00:00 Intake Total 1100 ml Balance 1100 ml (JATIN RUFF DO) Departure Communication (PCP) Patient with a migraine.. History of migraines states today's head pain feels similar. Denies worst headache of her life. Patient took Imitrex without much improvement. Head pain 7 out of 10. Photophobia. Patient Was given migraine cocktail with magnesium with improvement of her migraine. She has no focal neural deficits. Neuro exam normal. No seizure-like activity. She has no other complaints. Patient was requesting a work note. Patient neurologist just started patient back on her Topamax. Continue with medication. If any worsening symptoms to return back to ED. (NICOLE NIELSON) Impression Primary Impression: Migraine Disposition: 01 HOME, SELF-CARE Condition: Stable Departure-Patient Inst. Decision time for Depature: 19:16 (NICOLE NIELSON) Referrals: LACEY MARTINEZ MD (PCP/Family) Primary Care Physician Patient Instructions: Migraines (DC) Work/School Note: Work Release Form Date Seen in the Emergency Department: Jan 27, 2022 Return to Work: Jan 30, 2022 ATTENDING PHYSICIAN NOTE: I WAS PHYSICALLY PRESENT ER PHYSICIAN, BUT I WAS NOT INVOLVED IN ANY DECISION MAKING OR ANY CARE OF THIS PT, AND I AM NOT COLLABORATING PHYSICIAN. (JATIN RUFF DO) NICOLE NIELSON Jan 27, 2022 19:00 JATIN RUFF DO Jan 28, 2022 02:06
[2022-01-27] MEDS ORDERED: MAGNESIUM 1 GM/100 ML IVPB 100 ML IV ONE (20:00)
[2022-01-27 20:31] VITALS: BP 115/66
== END 2022-01-27 20:33 | disposition home or self-care (01) ==
LOC: EDUNIT# 17:59 → ER 18:02
DX: G43.909 Migraine, unspecified, not intractable, without status migrainosus (principal); F17.290 Nicotine dependence, other tobacco product, uncomplicated; Z79.899 Other long term (current) drug therapy

== ENCOUNTER 2022-04-05 07:59 | Emergency (ER) | payer MEDICAID ==
--- NOTE | 2022-04-05 08:38 | ED Back Pain ---
General Chief Complaint: Back Problems Stated Complaint: LOW BACK PAIN Nursing Triage Note: PT AMB TO [facility] WITH C/O LOW BACK PAIN FLARE UP THIS MORNING. PT STATES SHE INJURED HER BACK AFTER FALLING LAST WINTER AND HAS FLARE UPS BUT WORSE TODAY. PT DENIES TAKING ANY PAIN MEDS Source of Information: Patient Exam Limitations: No Limitations (CHRIS PRATER) History of Present Illness Date Seen by Provider: Apr 05, 2022 Time Seen by Provider: 08:15 Initial Comments This is a 41 year old female who presents with low back pain. Patient states she fell on her buttocks in July 2021. Since this fall she reports pain flares of her lower back that occur approximately every 3 months. Shortly after the fall the patient had xray imaging that ruled out acute injury. The patient states the pain she presents with today began yesterday afternoon around 1400 after standing up from sitting on the cough. She denies recent injury, fall, or trauma to the area. The pain is sharp, stabbing, tight, and rates 10/10 with movement and 7/10 with rest. Patient reports difficulty standing up straight and walking due to the pain. Patient denies lower extremity weakness or numbness, saddle anesthesia, urinary or bowel incontinence, or urinary hesitancy. Patient has tried 800mg of ibuprofen q8 hours for pain with little relief. Patient also admits to using her hookah and smoking marijuana last night for pain with no relief. Location: Other (bilateral sacroiliac joints) Timing/Duration: 1 Day Severity: Moderate Pain/Injury Location: Back (coccyx) Modifying Factors: Worse With Movement; Improves With Rest Associated Symptoms: denies symptoms, muscle spasms; No fever, No weakness, No numbness in legs/feet, No tingling in legs/feet, No sensory/motor loss; lower back pain; No loss of bladder control, No loss of bowel control (CHRIS PRATER) Allergies and Home Medications Allergies Coded Allergies: Penicillins (Verified Allergy, Unknown, 01/28/19) fentanyl (Verified Allergy, Unknown, 04/05/22) haloperidol (Verified Allergy, Unknown, 01/28/19) hydroxyzine (Verified Allergy, Unknown, 04/05/22) latex (Verified Allergy, Unknown, 01/28/19) promethazine (Verified Allergy, Unknown, 01/28/19) tramadol (Verified Allergy, Unknown, 01/05/22) Patient Home Medication List Clindamycin HCl (Clindamycin HCl) 300 Mg Capsule, 300 MG PO QID Prescribed by: EVETTE SIERRA on 12/05/21 1406 Hydrocodone/Acetaminophen (Hydrocodone-Acetamin 5-325 mg) 5 Mg-325 Mg Tablet, 1 TAB PO Q4H PRN for PAIN-MODERATE (5-7) Prescribed by: EVETTE SIERRA on 12/05/21 1407 Methocarbamol (Robaxin-750) 750 Mg Tablet, 750 MG PO Q6H PRN for PAIN-MODERATE Prescribed by: AMANDA FORTUNE on 01/28/19 1059 Ondansetron (Ondansetron Odt) 4 Mg Tab.rapdis, 4 MG PO Q6H PRN for NAUSEA/VO MITING Prescribed by: JENNIFER REYNOSO on 11/26/21 1825 Oxycodone HCl/Acetaminophen (Percocet 5-325 mg Tablet) 1 Each Tablet, 1-2 TAB PO Q4H PRN for PAIN-BREAKTHROUGH Prescribed by: KIERA RUEDA on 04/05/22 0936 Prednisone (Prednisone) 20 Mg Tab, 40 MG PO DAILY Prescribed by: KIERA RUEDA on 04/05/22 0935 Review of Systems Constitutional: no symptoms reported EENTM: no symptoms reported; No hearing loss, No blurred vision, No vision loss Respiratory: no symptoms reported; No cough, No short of breath Cardiovascular: no symptoms reported; No chest pain Gastrointestinal: No no symptoms reported, No abdominal pain, No constipation, No nausea, No vomiting Genitourinary: no symptoms reported; No hesitancy, No incontinence Musculoskeletal: back pain, muscle pain, muscle stiffness, muscle cramps Skin: no symptoms reported; No lesions, No rash Psychiatric/Neurological: No Symptoms Reported (CHRIS PRATER) All Other Systems Reviewed Negative Unless Noted: Yes (CHRIS PRATER) Past Ubffsep-Szopay-Iuosjm Hx Patient Social History Tobacco Use?: Yes Tobacco type used: Hookah Smoking Status: Current Someday Smoker (3x per week) Use of E-Cig and/or Vaping dev: Yes E-Cig or Vaping type used: Other Additional E-Cig or Vaping: HOOKAH Substance use?: Yes Substance type: Marijuana (2x per month) Substance frequency: Once in a while Alcohol Use?: No Pt feels they are or have been: No (CHRIS PRATER) Immunizations Up To Date Tetanus Booster (TDap): Unknown PED Vaccines UTD: Yes Influenza Vaccine Up-to-Date: Yes; Up-to-Date First/Initial COVID19 Vaccinat: 07/2020 Second COVID19 Vaccination Ugo: 08/220 Third COVID19 Vaccination Date: 07/2020 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[employer] ([employer]) (CHRIS PRATER) Seasonal Allergies Seasonal Allergies: No (CHIRS PRATER) Past Medical History Surgery/Hospitalization HX: 8 , 3 RT FOOT SURGERIES, 3 BREAST REDUCTIONS, TONSILS, APPENDIX, DEPRESSION Surgeries: Yes (D&C) Appendectomy, Breast, Section, Tonsillectomy Respiratory: No Cardiac: Yes Neurological: Yes Headaches /Migraines Last Menstrual Period: Mar 10, 2022 Genitourinary: No Gastrointestinal: No Musculoskeletal: Yes Arthritis Endocrine: No HEENT: No Cancer: No Psychosocial: No (CHRIS PRATER) Physical Exam Vital Signs Vital Signs - First Documented 04/05/22 08:11 Temp 36.0 Pulse 118 Resp 16 B/P (MAP) 128/85 (99) (KIERA MCMILLAN MD) Vital Signs Capillary Refill : (CHRIS PRATER) Height, Weight, BMI Height: 5'6.00" Weight: 274lbs. oz. 124.132634zm; 48.00 BMI Method:Stated General Appearance: No Apparent Distress, WD/WN HEENT: PERRL/EOMI Neck: Non Tender, Supple Cardiovascular: Regular Rate, Rhythm, No Murmur, Normal Peripheral Pulses Respiratory: Lungs Clear, Normal Breath Sounds, No Accessory Muscle Use, No Respiratory Distress Back: No Vertebral Tenderness, Other (Point tenderness over bilateral sacroiliac joints) Extremity: Normal Inspection, Normal Range of Motion, Non Tender, No Calf Tenderness, No Pedal Edema, Swelling Neurologic/Psychiatric: Alert, Normal Mood/Affect Skin: Normal Color, Warm/Dry; No Rash Lymphatic: No Adenopathy (CHRIS PRATER) Procedures/Interventions Dental Procedures: Dental I&D (CHRIS PRATER) Progress/Results/Core Measures Results/Orders Vital Signs/I&O 04/05/22 08:11 Temp 36.0 Pulse 118 Resp 16 B/P (MAP) 128/85 (99) (KIERA MCMILLAN MD) Blood Pressure Mean: 99 Departure Impression Primary Impression: Sacroiliitis Disposition: 01 HOME, SELF-CARE Condition: Stable Departure-Patient Inst. Decision time for Depature: 09:26 (KIERA MCMILLAN MD) Referrals: LACEY MARTINEZ MD (PCP/Family) Primary Care Physician Patient Instructions: Sacroiliac Joint Pain Add. Discharge Instructions: In the short-term you may treat your pain with NSAID medications such as ibuprofen up to 600 mg every 6 hours as needed. For pain not controlled by ove [id number] medications, you may use your oxycodone (Percocet) as prescribed. Use this medication as sparingly as possible. Percocet may cause drowsiness and constipation. Use with caution. You may wish to use a stool softener while on Percocet to prevent constipation. Work with your primary care provider to develop a plan for nonpharmacologic management of your pain. Such treatments may include physical therapy, weight loss, stretching exercises, core strengthening exercise programs, etc. Use prednisone as prescribed to help with inflammation. Prednisone is best taken early in the day with food or milk to avoid sleep disturbance and stomach upset. Return to care if you have worsening symptoms despite following these instructions, especially if you develop difficulty controlling your bowels or bladder, weakness in your legs, or numbness in your groin. All discharge instructions reviewed with patient and/or family. Voiced understanding. Scripts Oxycodone HCl/Acetaminophen (Percocet 5-325 mg Tablet) 1 Each Tablet 1-2 TAB PO Q4H PRN for PAIN-BREAKTHROUGH MDD 6 TABS, #10 TAB Prov: KIERA MCMILLAN MD 04/05/22 Prednisone (Prednisone) 20 Mg Tab 40 MG PO DAILY, #6 TAB 0 Refills Prov: KIERA MCMILLAN MD 04/05/22 CHRIS PRATER Apr 05, 2022 08:38 KIERA MCMILLAN MD Apr 05, 2022 09:31
[2022-04-05] MEDS ORDERED: PRD20T PO (09:35)
[2022-04-05] MEDS ORDERED: OXYC1TAB87 PO (09:35)
[2022-04-05 09:45] VITALS: BP 132/79
== END 2022-04-05 09:46 | disposition home or self-care (01) ==
LOC: EDUNIT# 07:59 → ER 08:03
DX: M46.1 Sacroiliitis, not elsewhere classified (principal); F17.290 Nicotine dependence, other tobacco product, uncomplicated
CPT/HCPCS: 99281

== ENCOUNTER 2022-05-05 09:13 | Emergency (ER) | payer MEDICAID ==
[~2022-05-05] VITALS: Ht 167.7 cm; Wt 140.2 kg
[~2022-05-05 09:13] MED LIST changes: +OXYC1TAB87 PO; +PRD20T PO
--- NOTE | 2022-05-05 09:37 | ED GU-Female ---
General Stated Complaint: VAGINAL BLEEDING Source: patient Exam Limitations: no limitations History of Present Illness Date Seen by Provider: May 05, 2022 Time Seen by Provider: 09:25 Initial Comments Patient is a 41-year-old female who presents to the emergency department today with a chief complaint of heavy vaginal bleeding. Patient's last normal menstr ual cycle was April 07. She is not on control. She is unsure if her tubes were removed at the time of her last . She states she did have unprotected sex around the time of ovulation but she states her partner had a vasectomy. Her menstrual cycle started last night. She states this morning she woke up to get her kids ready for school, she has changed her "ultra" tampon 3 times in the last hour. She states she bled through to her pants. She has had a little nausea, 1 episode of vomiting last night. She does not believe she is . No vaginal trauma or pain. She endorses suprapubic abdominal cramping. She has not taken any medications for the cramping. Her last UNLOADING CHECKER exam was 4 years ago. Her UNLOADING CHECKER physician is Dr. Vega. All other review of systems reviewed and negative except as stated. Timing/Duration: this morning Severity/Quality: severe, cramping Location: suprapubic Radiation: none Activities at Onset: none Prior Genitourinary Problems: none Sexual [place] History: single partner Associated Symptoms: abdominal pain (cramping), nausea/vomiting (vomiting last night) Allergies and Home Medications Allergies Coded Allergies: Penicillins (Verified Allergy, Unknown, 01/28/19) fentanyl (Verified Allergy, Unknown, 04/05/22) haloperidol (Verified Allergy, Unknown, 01/28/19) hydroxyzine (Verified Allergy, Unknown, 04/05/22) latex (Verified Allergy, Unknown, 01/28/19) promethazine (Verified Allergy, Unknown, 01/28/19) tramadol (Verified Allergy, Unknown, 01/05/22) Patient Home Medication List Home Medication List Reviewed: Yes Clindamycin HCl (Clindamycin HCl) 300 Mg Capsule, 300 MG PO QID Prescribed by: EVETTE SIERRA on 12/05/21 5692 Hydrocodone/Acetaminophen (Hydrocodone-Acetamin 5-325 mg) 5 Mg-325 Mg Tablet, 1 TAB PO Q4H PRN for PAIN-MODERATE (5-7) Prescribed by: EVETTE SIERRA on 12/05/21 1407 Methocarbamol (Robaxin-750) 750 Mg Tablet, 750 MG PO Q6H PRN for PAIN-MODERATE Prescribed by: AMANDA FORTUNE on 01/28/19 1059 Ondansetron (Ondansetron Odt) 4 Mg Tab.rapdis, 4 MG PO Q6H PRN for NAUSEA/VOMITING Prescribed by: JENNIFER REYNOSO on 11/26/21 1825 Oxycodone HCl/Acetaminophen (Percocet 5-325 mg Tablet) 1 Each Tablet, 1-2 TAB PO Q4H PRN for PAIN-BREAKTHROUGH Prescribed by: KIERA RUEDA on 04/05/22 0936 Prednisone (Prednisone) 20 Mg Tab, 40 MG PO DAILY Prescribed by: KIERA RUEDA on 04/05/22 0935 Tranexamic Acid (Tranexamic Acid) 650 Mg Tablet, 1,300 MG PO TID Prescribed by: LISA SAXENA on 05/05/22 1130 Review of Systems Review of Systems Constitutional: see HPI EENTM: no symptoms reported Respiratory: no symptoms reported Cardiovascular: no symptoms reported Gastrointestinal: nausea (slight) Genitourinary: other (vaginal bleeding) LMP: Apr 07, 2022 Musculoskeletal: no symptoms reported Skin: no symptoms reported Psychiatric/Neurological: Anxiety All Other Systemes Reviewed Negative Unless Noted: Yes Past Ndsrgsp-Cgzegk-Fjqaze Hx Immunizations Up To Date Tetanus Booster (TDap): Unknown PED Vaccines UTD: Yes First/Initial COVID19 Vaccinat: 07/2020 Second COVID19 Vaccination Ugo: 08/220 Third COVID19 Vaccination Date: 07/2020 Seasonal Allergies Seasonal Allergies: No Past Medical History Surgery/Hospitalization HX: 8 , 3 RT FOOT SURGERIES, 3 BREAST REDUCTIONS, TONSILS, APPENDIX, DEPRESSION Surgeries: Yes (D&C) Appendectomy, Breast, Section, Tonsillectomy Respiratory: No Cardiac: Yes Neurological: Yes Headaches /Migraines Genitourinary: No Gastrointestinal: No Musculoskeletal: Yes Arthritis Endocrine: No HEENT: No Cancer: No Psychosocial: No Physical Exam Vital Signs Vital Signs - First Documented 05/05/22 09:20 Temp 36.6 Pulse 113 Resp 19 B/P (MAP) 141/92 (108) O2 Delivery Room Air Capillary Refill : Height, Weight, BMI Height: 5'6.00" Weight: 274lbs. oz. 124.835248cp; 48.00 BMI Method:Stated General Appearance: WD/WN, no apparent distress HEENT: PERRL/EOMI Cardiovascular: regular rate, rhythm, tachycardia Respiratory: lungs clear, normal breath sounds, no respiratory distress, no accessory muscle use Gastrointestinal: normal bowel sounds, soft, tenderness (mild suprapubic tenderness to palpation) Extremities: normal range of motion, normal inspection Neurologic/Psychiatric: alert, oriented x 3, other (appears anxious) Skin: normal color, warm/dry Procedures/Interventions Dental Procedures: Dental I&D Progress/Results/Core Measures Suspected Sepsis SIRS Temperature: Pulse: Respiratory Rate: Laboratory Tests 05/05/22 09:38: White Blood Count 7.6 Blood Pressure / Mean: Laboratory Tests 05/05/22 09:38: Platelet Count 289 Results/Orders Lab Results Laboratory Tests Test 05/05/22 09:38 Range/Units White Blood Count 7.6 4.3-11.0 10^3/uL Red Blood Count 4.96 3.80-5.11 10^6/uL Hemoglobin 15.5 11.5-16.0 g/dL Hematocrit 45 35-52 % Mean Corpuscular Volume 92 80-99 fL Mean Corpuscular Hemoglobin 31 25-34 pg Mean Corpuscular Hemoglobin Concent 34 32-36 g/dL Red Cell Distribution Width 12.4 10.0-14.5 % Platelet Count 289 130-400 10^3/uL Mean Platelet Volume 9.2 9.0-12.2 fL Immature Granulocyte % (Auto) 0 % Neutrophils (%) (Auto) 52 42-75 % Lymphocytes (%) (Auto) 36 12-44 % Monocytes (%) (Auto) 7 0-12 % Eosinophils (%) (Auto) 4 0-10 % Basophils (%) (Auto) 1 0-10 % Neutrophils # (Auto) 3.9 1.8-7.8 10^3/uL Lymphocytes # (Auto) 2.7 1.0-4.0 10^3/uL Monocytes # (Auto) 0.5 0.0-1.0 10^3/uL Eosinophils # (Auto) 0.3 0.0-0.3 10^3/uL Basophils # (Auto) 0.1 0.0-0.1 10^3/uL Immature Granulocyte # (Auto) 0.0 0.0-0.1 10^3/uL Serum Test, Qualitative NEGATIVE NEGATIVE My Orders Orders - LISA SAXENA MD Ed Iv/Invasive Line Start (05/05/22 09:32) Cbc With Automated Diff (05/05/22 09:32) Hcg,Qualitative Serum (05/05/22 09:32) Ketorolac Injection (Toradol Injection) (05/05/22 10:45) Medications Given in ED Current Medications Medications Dose Ordered Sig/Barb Route Start Time Stop Time Status Last Admin Dose Admin Ketorolac Tromethamine 15 mg ONCE ONCE IVP 05/05/22 10:45 05/05/22 10:46 DC 05/05/22 10:44 15 MG Vital Signs/I&O 05/05/22 09:20 Temp 36.6 Pulse 113 Resp 19 B/P (MAP) 141/92 (108) O2 Delivery Room Air Capillary Refill : Progress Note : Time: 11:27 Progress Note Patient seen and evaluated, physical exam, CBC test. CBC is reviewed and hemoglobin is within normal limits. Patient's vital signs are stable. Her exam is benign. test is negative. Low clinical suspicion for anything related to a /miscarriage. No trauma reported therefore a exam was not performed. She will be treated with oral TXA 650 mg tablets to 3 times daily for 5 days. She is instructed to follow-up with Dr. Vega for further evaluation and management. She is not anemic, she is not unstable. All findings and plan of care communicated with the patient. All questions sought and answered. Patient is stable for discharge Departure Impression Primary Impression: Menorrhagia Qualified Codes: N92.0 - Excessive and frequent menstruation with regular cycle Disposition: HOME, SELF-CARE Condition: Stable Departure-Patient Inst. Decision time for Depature: 11:29 Referrals: LACEY MARTINEZ MD (PCP) Primary Care Physician CURT VEGA DO Patient Instructions: Heavy Periods (DC) Add. Discharge Instructions: Start the TXA tablets 2 pills twice a day for 5 days. This will slow down your bleeding. It may not stop completely but will slow it down. Please call Dr Vega's office today for a follow up appointment in 1 week. If you have persistent heavy bleeding after 2 full days of this medication, please return to the Emergency Department for re-evaluation. You can take Naproxen 500mg 1 pill twice a day with food for pain for the 5 days you are taking the TXA tablets. Scripts Naproxen (Naprosyn) 500 Mg Tablet 500 MG PO BID PRN for PAIN-MODERATE (5-7), #10 TAB 0 Refills Prov: LISA SAXENA MD 05/05/22 Tranexamic Acid (Tranexamic Acid) 650 Mg Tablet 1300 MG PO TID for 5 Days, #30 TAB Prov: LISA SAXENA MD 05/05/22 Work/School Note: Work Release Form Date Seen in the Emergency Department: May 05, 2022 Return to Work: May 08, 2022 Copy Copies To 1: CURT VEGA KATHRYN M MD May 05, 2022 09:37
[2022-05-05 09:43] LABS: BASOPHILS # (AUTO) 0.1 10^3/uL (0.0-0.1); BASOPHILS % (AUTO) 1 % (0-10); EOSINOPHILS # (AUTO) 0.3 10^3/uL (0.0-0.3); EOSINOPHILS % (AUTO) 4 % (0-10); HEMATOCRIT 45 % (35-52); HEMOGLOBIN 15.5 g/dL (11.5-16.0); LYMPHOCYTES # (AUTO) 2.7 10^3/uL (1.0-4.0); LYMPHOCYTES % (AUTO) 36 % (12-44); MEAN CORPUSCULAR HEMOGLOBIN 31 pg (25-34); MEAN CORPUSCULAR HGB CONC 34 g/dL (32-36); MEAN CORPUSCULAR VOLUME 92 fL (80-99); MEAN PLATELET VOLUME 9.2 fL (9.0-12.2); MONOCYTES # (AUTO) 0.5 10^3/uL (0.0-1.0); MONOCYTES % (AUTO) 7 % (0-12); NEUTROPHILS # (AUTO) 3.9 10^3/uL (1.8-7.8); NEUTROPHILS % (AUTO) 52 % (42-75); PLATELET COUNT 289 10^3/uL (130-400); WHITE BLOOD COUNT 7.6 10^3/uL (4.3-11.0)
[2022-05-05] MEDS ORDERED: KETOROLAC 15 MG/ML VIAL IVP ONE (10:45)
[2022-05-05] MEDS ORDERED: TRAN650T5 PO (11:30)
[2022-05-05] MEDS ORDERED: NAPR-1071 PO (11:41)
[2022-05-05 11:53] VITALS: BP 141/96
== END 2022-05-05 11:53 | disposition home or self-care (01) ==
LOC: EDUNIT# 09:13 → ER 09:15
DX: N92.0 Excessive and frequent menstruation with regular cycle (principal); R00.0 Tachycardia, unspecified; Z32.02 Encounter for pregnancy test, result negative; Z28.310 Unvaccinated for COVID-19
CPT/HCPCS: 36415; 84703; 85025; 99282

== ENCOUNTER 2022-05-27 14:58 | Emergency (ER) | payer MEDICAID ==
[~2022-05-27] VITALS: Ht 165 cm; Wt 136.0 kg
[~2022-05-27 14:58] MED LIST changes: +NAPR-1071 PO; +TRAN650T5 PO
[2022-05-27] MEDS ORDERED: ONDANSETRON 4 MG/2 ML (SDV) Z0FRAN IVP ONE (15:15)
[2022-05-27] MEDS ORDERED: LACTATED RINGERS 1,000 ML IV ONE (15:15)
[2022-05-27 16:04] LABS: HEMATOCRIT 47 % (35-52)
[2022-05-27 16:06] LABS: BASOPHILS # (AUTO) 0.1 10^3/uL (0.0-0.1); BASOPHILS % (AUTO) 1 % (0-10); EOSINOPHILS # (AUTO) 0.3 10^3/uL (0.0-0.3); EOSINOPHILS % (AUTO) 4 % (0-10); HEMOGLOBIN 16.4 g/dL (11.5-16.0); LYMPHOCYTES # (AUTO) 3.1 10^3/uL (1.0-4.0); LYMPHOCYTES % (AUTO) 41 % (12-44); MEAN CORPUSCULAR HEMOGLOBIN 31 pg (25-34); MEAN CORPUSCULAR HGB CONC 35 g/dL (32-36); MEAN CORPUSCULAR VOLUME 91 fL (80-99); MEAN PLATELET VOLUME 10.4 fL (9.0-12.2); MONOCYTES # (AUTO) 0.7 10^3/uL (0.0-1.0); MONOCYTES % (AUTO) 9 % (0-12); NEUTROPHILS # (AUTO) 3.3 10^3/uL (1.8-7.8); NEUTROPHILS % (AUTO) 44 % (42-75); PLATELET COUNT 199 10^3/uL (130-400); WHITE BLOOD COUNT 7.4 10^3/uL (4.3-11.0)
[2022-05-27 16:20] LABS: ALBUMIN 3.9 GM/DL (3.2-4.5); BILIRUBIN,TOTAL 0.6 MG/DL (0.1-1.0); CALCIUM 9.3 MG/DL (8.5-10.1); CREATININE SERUM 0.72 MG/DL (0.60-1.30); MAGNESIUM 1.9 MG/DL (1.6-2.4); POTASSIUM 3.8 MMOL/L (3.6-5.0); TOTAL PROTEIN 7.6 GM/DL (6.4-8.2)
[2022-05-27 16:58] LABS: BILIRUBIN,URINE NEGATIVE (NEGATIVE); CLARITY,URINE CLEAR; COLOR,URINE YELLOW; GLUCOSE, URINE (UA) NEGATIVE (NEGATIVE); KETONES,URINE NEGATIVE (NEGATIVE); LEUKOCYTE ESTERASE ,URINE NEGATIVE (NEGATIVE); NITRITE,URINE NEGATIVE (NEGATIVE); PH,URINE 5.5 (5-9); PROTEIN,URINE NEGATIVE (NEGATIVE)
[2022-05-27 17:15] LABS: BACTERIA,URINE NEGATIVE /HPF; RBC,URINE 0-2 /HPF
[2022-05-27] MEDS ORDERED: KETOROLAC 30 MG/ML VIAL IVP ONE (17:45)
[2022-05-27] MEDS ORDERED: PROCHLORPERAZINE 10 MG/2ML INJ (COMPAZINE) IV ONE (17:45)
[2022-05-27] MEDS ORDERED: PROC-1 PO (18:03)
--- NOTE | 2022-05-27 18:04 | ED General ---
General Chief Complaint: Abdominal/GI Problems Stated Complaint: VOMITING/SYNCOPAL EPISODE/HEADACHE Nursing Triage Note: PT STATES HAS BEEN HAVING N/V/D SINCE YESTERDAY, PT RECENT SURG ON L ANKLE HAS SOME INFECTION AND IS CURRENTLY TAKING ANTIBIOTICS. PT STATES HAD SYCOPAL EPISODE TODAY. PT STATES TESTED NEG FOR COVID YESTERDAY. PT STATES HAS MIGRAINE STARTED YESTERDAY History of Present Illness Date Seen by Provider: May 27, 2022 Allergies and Home Medications Allergies Coded Allergies: Penicillins (Verified Allergy, Unknown, 01/28/19) fentanyl (Verified Allergy, Unknown, 04/05/22) haloperidol (Verified Allergy, Unknown, 01/28/19) hydroxyzine (Verified Allergy, Unknown, 04/05/22) latex (Verified Allergy, Unknown, 01/28/19) promethazine (Verified Allergy, Unknown, 01/28/19) tramadol (Verified Allergy, Unknown, 01/05/22) Patient Home Medication List Clindamycin HCl (Clindamycin HCl) 300 Mg Capsule, 300 MG PO QID Prescribed by: EVETTE SIERRA on 12/05/21 1406 Hydrocodone/Acetaminophen (Hydrocodone-Acetamin 5-325 mg) 5 Mg-325 Mg Tablet, 1 TAB PO Q4H PRN for PAIN-MODERATE (5-7) Prescribed by: EVETTE SIERRA on 12/05/21 1407 Methocarbamol (Robaxin-750) 750 Mg Tablet, 750 MG PO Q6H PRN for PAIN-MODERATE Prescribed by: AMANDA FORTUNE on 01/28/19 1059 Naproxen (Naprosyn) 500 Mg Tablet, 500 MG PO BID PRN for PAIN-MODERATE (5-7) Prescribed by: LISA SAXENA on 05/05/22 1141 Ondansetron (Ondansetron Odt) 4 Mg Tab.rapdis, 4 MG PO Q6H PRN for NAUSEA/VOMITING Prescribed by: JENNIFER REYNOSO on 11/26/21 1825 Oxycodone HCl/Acetaminophen (Percocet 5-325 mg Tablet) 1 Each Tablet, 1-2 TAB PO Q4H PRN for PAIN-BREAKTHROUGH Prescribed by: KIERA RUEDA on 04/05/22 0936 Prednisone (Prednisone) 20 Mg Tab, 40 MG PO DAILY Prescribed by: KIERA RUEDA on 04/05/22 0935 Tranexamic Acid (Tranexamic Acid) 650 Mg Tablet, 1,300 MG PO TID Prescribed by: LISA SAXENA on 05/05/22 1130 Past Opvuvlt-Hfpxnw-Cidufc Hx Patient Social History Tobacco Use?: No Tobacco type used: Cigarettes Smoking Status: Current Someday Smoker Substance use?: Yes Substance type: Marijuana Substance frequency: Once in a while Alcohol Use?: No Immunizations Up To Date Tetanus Booster (TDap): Unknown PED Vaccines UTD: Yes First/Initial COVID19 Vaccinat: 07/2020 Second COVID19 Vaccination Ugo: 08/220 Third COVID19 Vaccination Date: 07/2020 Seasonal Allergies Seasonal Allergies: No Past Medical History Surgery/Hospitalization HX: 8 , 3 RT FOOT SURGERIES, 3 BREAST REDUCTIONS, TONSILS, APPENDIX, DEPRESSION. 05/11 FOOT SURG TARSAL TUNNEL RELEASE AND IS INFECTED ON L FOOT Surgeries: Yes (D&C) Appendectomy, Breast, Section, Tonsillectomy Respiratory: No Cardiac: Yes Neurological: Yes Headaches /Migraines Genitourinary: No Gastrointestinal: No Musculoskeletal: Yes Arthritis Endocrine: No HEENT: No Cancer: No Psychosocial: No Physical Exam Vital Signs Vital Signs - First Documented 05/27/22 15:20 Temp 37.2 Pulse 110 Resp 16 B/P (MAP) 136/82 (100) Pulse Ox 99 Capillary Refill : Height, Weight, BMI Height: 5'6.00" Weight: 274lbs. oz. 124.512776bi; 49.00 BMI Method:Stated Procedures/Interventions Dental Procedures: Dental I&D Progress/Results/Core Measures Suspected Sepsis SIRS Temperature: Pulse: 110 Respiratory Rate: 16 Laboratory Tests 05/27/22 15:50: White Blood Count 7.4 Blood Pressure 136 /82 Mean: 100 Laboratory Tests 05/27/22 15:50: Creatinine 0.72, Platelet Count 199, Total Bilirubin 0.6 Results/Orders Lab Results Laboratory Tests Test 05/27/22 15:44 05/27/22 15:50 05/27/22 16:51 Range/Units Influenza Type A (RT-PCR) Not Detected Not Detecte Influenza Type B (RT-PCR) Not Detected Not Detecte SARS-CoV-2 RNA (RT-PCR) Not Detected Not Detecte White Blood Count 7.4 4.3-11.0 10^3/uL Red Blood Count 5.22 H 3.80-5.11 10^6/uL Hemoglobin 16.4 H 11.5-16.0 g/dL Hematocrit 47 35-52 % Mean Corpuscular Volume 91 80-99 fL Mean Corpuscular Hemoglobin 31 25-34 pg Mean Corpuscular Hemoglobin Concent 35 32-36 g/dL Red Cell Distribution Width 12.0 10.0-14.5 % Platelet Count 199 130-400 10^3/uL Mean Platelet Volume 10.4 9.0-12.2 fL Immature Granulocyte % (Auto) 0 % Neutrophils (%) (Auto) 44 42-75 % Lymphocytes (%) (Auto) 41 12-44 % Monocytes (%) (Auto) 9 0-12 % Eosinophils (%) (Auto) 4 0-10 % Basophils (%) (Auto) 1 0-10 % Neutrophils # (Auto) 3.3 1.8-7.8 10^3/uL Lymphocytes # (Auto) 3.1 1.0-4.0 10^3/uL Monocytes # (Auto) 0.7 0.0-1.0 10^3/uL Eosinophils # (Auto) 0.3 0.0-0.3 10^3/uL Basophils # (Auto) 0.1 0.0-0.1 10^3/uL Immature Granulocyte # (Auto) 0.0 0.0-0.1 10^3/uL Percent Immature Platelet Fraction 7.5 0.0-7.6 % Sodium Level 139 135-145 MMOL/L Potassium Level 3.8 3.6-5.0 MMOL/L Chloride Level 106 98-107 MMOL/L Carbon Dioxide Level 20 L 21-32 MMOL/L Anion Gap 13 5-14 MMOL/L Blood Urea Nitrogen 7 7-18 MG/DL Creatinine 0.72 0.60-1.30 MG/DL Estimat Glomerular Filtration Rate 106 BUN/Creatinine Ratio 10 Glucose Level 96 70-105 MG/DL Calcium Level 9.3 8.5-10.1 MG/DL Corrected Calcium 9.4 8.5-10.1 MG/DL Magnesium Level 1.9 1.6-2.4 MG/DL Total Bilirubin 0.6 0.1-1.0 MG/DL Aspartate Amino Transf (AST/SGOT) 14 5-34 U/L Alanine Aminotransferase (ALT/SGPT) 13 0-55 U/L Alkaline Phosphatase 60 40-136 U/L Total Protein 7.6 6.4-8.2 GM/DL Albumin 3.9 3.2-4.5 GM/DL Serum Test, Qualitative NEGATIVE NEGATIVE Urine Color YELLOW Urine Clarity CLEAR Urine pH 5.5 5-9 Urine Specific [place] >=1.030 1.016-1.022 Urine Protein NEGATIVE NEGATIVE Urine Glucose (UA) NEGATIVE NEGATIVE Urine Ketones NEGATIVE NEGATIVE Urine Nitrite NEGATIVE NEGATIVE Urine Bilirubin NEGATIVE NEGATIVE Urine Urobilinogen 1.0 < = 1.0 MG/DL Urine Leukocyte Esterase NEGATIVE NEGATIVE Urine RBC (Auto) TRACE-I H NEGATIVE Urine RBC 0-2 /HPF Urine WBC NONE /HPF Urine Crystals NONE /LPF Urine Bacteria NEGATIVE /HPF Urine Casts NONE /LPF Urine Mucus SMALL H /LPF Urine Culture Indicated NO My Orders Orders - KINSEY CHAN APRN Iv/Invasive Line Insertion .IV INSERT (05/27/22 15:45) Prochlorperazine Injection (Compazine In (05/27/22 17:45) Ketorolac Injection (Toradol Injection) (05/27/22 17:45) Medications Given in ED Current Medications Medications Dose Ordered Sig/Barb Route Start Time Stop Time Status Last Admin Dose Admin Ketorolac Tromethamine 15 mg ONCE ONCE IVP 05/27/22 17:45 05/27/22 17:46 DC 05/27/22 17:46 15 MG Lactated Ringer's 1,000 ml @ 0 mls/hr Q0M ONCE IV 05/27/22 15:15 05/27/22 15:16 DC 05/27/22 15:49 1,000 MLS/HR Ondansetron HCl 8 mg ONCE ONCE IVP 05/27/22 15:15 05/27/22 15:16 DC 05/27/22 15:49 8 MG Prochlorperazine Edisylate 10 mg ONCE ONCE IV 05/27/22 17:45 05/27/22 17:46 DC 05/27/22 17:46 10 MG Vital Signs/I&O 05/27/22 15:20 Temp 37.2 Pulse 110 Resp 16 B/P (MAP) 136/82 (100) Pulse Ox 99 Capillary Refill : Blood Pressure Mean: 100 Departure Impression Primary Impression: Vomiting and diarrhea Disposition: 01 HOME, SELF-CARE Condition: Stable Departure-Patient Inst. Decision time for Depature: 18:00 Referrals: LACEY MARTINEZ MD (PCP/Family) Primary Care Physician Patient Instructions: Nausea and Vomiting, Adult ED, Diarrhea, Adult ED Scripts Prochlorperazine Maleate (Compazine) 10 Mg Tablet 10 MG PO Q8H PRN for NAUSEA/VOMITING, #15 TAB 0 Refills Prov: KINSEY CHAN APRN 05/27/22 Work/School Note: Work Release Form Date Seen in the Emergency Department: May 27, 2022 Return to Work: May 31, 2022 Restrictions: Return-No Vomiting(24hrs) KINSEY CHAN APRN May 27, 2022 18:04
[2022-05-27 18:30] VITALS: BP 122/83
== END 2022-05-27 18:30 | disposition home or self-care (01) ==
LOC: EDUNIT# 14:58 → ER 15:01
DX: R11.2 Nausea with vomiting, unspecified (principal); R19.7 Diarrhea, unspecified; F17.210 Nicotine dependence, cigarettes, uncomplicated; Z91.040 Latex allergy status; Z88.8 Allergy status to other drugs, medicaments and biological substances; Z20.822 Contact with and (suspected) exposure to COVID-19
CPT/HCPCS: 36415; 80053; 81000; 83735; 84703; 85025; 87636

== ENCOUNTER 2022-09-24 08:31 | Emergency (ER) | payer MEDICAID ==
[~2022-09-24] VITALS: Ht 167 cm; Wt 139.7 kg
[~2022-09-24 08:31] MED LIST changes: +PROC-1 PO
[2022-09-24] MEDS ORDERED: KETOROLAC 15 MG/ML VIAL IM ONE (09:00)
[2022-09-24 09:04] VITALS: BP 118/91
[2022-09-24] MEDS ORDERED: SULF1TAB38 PO (09:10)
[2022-09-24] MEDS ORDERED: KETO10TA PO (09:10)
--- NOTE | 2022-09-24 09:12 | ED General ---
General Chief Complaint: Hip/Pelvic Problems Stated Complaint: FELL, TAILBONE PAIN|SORE ON RIGHT BREAST Source of Information: Patient Exam Limitations: No Limitations History of Present Illness Date Seen by Provider: Sep 24, 2022 Time Seen by Provider: 09:06 Initial Comments 42-year-old female who is otherwise healthy presents to the emergency department today for 2 complaints. First she states she has "tailbone pain." She had an injury several years ago when she tripped on the ice. She states she reinjured her tailbone 2 days ago when her dog ran causing her to trip and fall. She describes the pain is excruciating, especially with lying flat or twisting motions, sitting. No loss of bowel or bladder control, saddle anesthesia. Secondly, she states she has an area of redness that she feels may be an infection just on the undersurface of the lateral right breast. Symptoms started again a couple of days ago. No drainage. No fevers or chills. She has had similar issues in her axillary region but never on her breast. All other systems reviewed and negative except documented per HPI. Voice recognition software was used to help create this chart Allergies and Home Medications Allergies Coded Allergies: Penicillins (Verified Allergy, Unknown, 01/28/19) fentanyl (Verified Allergy, Unknown, 04/05/22) haloperidol (Verified Allergy, Unknown, 01/28/19) hydroxyzine (Verified Allergy, Unknown, 04/05/22) latex (Verified Allergy, Unknown, 01/28/19) promethazine (Verified Allergy, Unknown, 01/28/19) tramadol (Verified Allergy, Unknown, 01/05/22) Patient Home Medication List Home Medication List Reviewed: Yes Clindamycin HCl (Clindamycin HCl) 300 Mg Capsule, 300 MG PO QID Prescribed by: EVETTE SIERRA on 12/05/21 1406 Hydrocodone/Acetaminophen (Hydrocodone-Acetamin 5-325 mg) 5 Mg-325 Mg Tablet, 1 TAB PO Q4H PRN for PAIN-MODERATE (5-7) Prescribed by: EVETTE SIERRA on 12/05/21 1407 Ketorolac Tromethamine (Ketorolac Tromethamine) 10 Mg Tablet, 10 MG PO TID Prescribed by: MINDY LEDBETTER MD on 09/24/22 0910 Methocarbamol (Robaxin-750) 750 Mg Tablet, 750 MG PO Q6H PRN for PAIN-MODERATE Prescribed by: AMANDA FORTUNE on 01/28/19 1059 Naproxen (Naprosyn) 500 Mg Tablet, 500 MG PO BID PRN for PAIN-MODERATE (5-7) Prescribed by: LISA SAXENA on 05/05/22 1141 Ondansetron (Ondansetron Odt) 4 Mg Tab.rapdis, 4 MG PO Q6H PRN for NAUSEA/VOMITING Prescribed by: JENNIFER REYNOSO on 11/26/21 1825 Oxycodone HCl/Acetaminophen (Percocet 5-325 mg Tablet) 1 Each Tablet, 1-2 TAB PO Q4H PRN for PAIN-BREAKTHROUGH Prescribed by: KIERA RUEDA on 04/05/22 0936 Prednisone (Prednisone) 20 Mg Tab, 40 MG PO DAILY Prescribed by: KIERA RUEDA on 04/05/22 0935 Prochlorperazine Maleate (Compazine) 10 Mg Tablet, 10 MG PO Q8H PRN for NAUSEA/VOMITING Prescribed by: Azeem Wadsworth on 05/27/22 1803 Sulfamethoxazole/Trimethoprim (Bactrim Ds Tablet) 1 Each Tablet, 1 EACH PO BID Prescribed by: MINDY LEDBETTER MD on 09/24/22 0910 Tranexamic Acid (Tranexamic Acid) 650 Mg Tablet, 1,300 MG PO TID Prescribed by: LISA SAXENA on 05/05/22 1130 Review of Systems Review of Systems Constitutional: no symptoms reported Past Yztnxsv-Psrjhd-Niotzp Hx Patient Social History Tobacco Use?: No Use of E-Cig and/or Vaping dev: No Substance use?: No Alcohol Use?: No Immunizations Up To Date Tetanus Booster (TDap): Unknown PED Vaccines UTD: Yes First/Initial COVID19 Vaccinat: 07/2020 Second COVID19 Vaccination Ugo: 08/220 Third COVID19 Vaccination Date: 07/2020 Seasonal Allergies Seasonal Allergies: No Past Medical History Surgery/Hospitalization HX: 8 , 3 RT FOOT SURGERIES, 3 BREAST REDUCTIONS, TONSILS, APPENDIX, DEPRESSION. 05/11 FOOT SURG TARSAL TUNNEL RELEASE AND IS INFECTED ON L FOOT Surgeries: Yes (D&C) Appendectomy, Breast, Section, Tonsillectomy Respiratory: No Cardiac: Yes Neurological: Yes Headaches /Migraines Genitourinary: No Gastrointestinal: No Musculoskeletal: Yes Arthritis Endocrine: No HEENT: No Cancer: No Psychosocial: No Family Medical History Reviewed Nursing Family Hx No Pertinent Family Hx Physical Exam Vital Signs Vital Signs - First Documented 09/24/22 09:04 Temp 36.5 Pulse 114 Resp 16 B/P (MAP) 118/91 (100) Pulse Ox 96 O2 Delivery Room Air Capillary Refill : Height, Weight, BMI Height: 5'6.00" Weight: 274lbs. oz. 124.036288zo; 49.00 BMI Method:Stated General Appearance: No Apparent Distress, WD/WN HEENT: Normal ENT Inspection, Pharynx Normal Neck: Normal Inspection, Non Tender, Supple Respiratory: Chest Non Tender, Lungs Clear, Normal Breath Sounds, No Accessory Muscle Use, No Respiratory Distress Cardiovascular: Regular Rate, Rhythm, No Murmur, Normal Peripheral Pulses Gastrointestinal: Normal Bowel Sounds, No Organomegaly, No Pulsatile Mass, Non Tender, Soft Extremity: Normal Capillary Refill, Normal Inspection, Normal Range of Motion, Non Tender, No Calf Tenderness Neurologic/Psychiatric: Alert, Oriented x3 Skin: Other (Approximate 4 cm diameter area of erythema the inferior lateral portion of the right lateral breast. There is a central area of excoriation and induration but no fluctuance.) Procedures/Interventions Dental Procedures: Dental I&D Progress/Results/Core Measures Suspected Sepsis SIRS Temperature: Pulse: Respiratory Rate: Blood Pressure / Mean: Results/Orders My Orders Orders - MINDY LEDBETTER DO Ketorolac Injection (Toradol Injection) (09/24/22 09:00) Vital Signs/I&O 09/24/22 09:04 Temp 36.5 Pulse 114 Resp 16 B/P (MAP) 118/91 (100) Pulse Ox 96 O2 Delivery Room Air Capillary Refill : Departure Communication (Admissions) Patient is hemodynamically stable. She has clear cellulitis of the right breast with no evidence for abscess. No indication for drainage at this time. Her vital signs are normal, no septic type picture is no indication for labs at this time. Will treat with p.o. antibiotics. Regarding her tailbone pain, no imaging is indicated at this. No operative management available for this type of injury. She has no red flag symptoms to indicate significant pelvic injury such as saddle anesthesia, loss of bowel or bladder control. We will focus on pain control at this time. Given injection of Toradol and discharged with p.o. prescription for the same. She is comfortable and agreeable current plan of care. She is discharged in stable condition. Impression Primary Impression: Coccyx pain Additional Impression: Cellulitis Qualified Codes: L03.818 - Cellulitis of other sites Disposition: HOME, SELF-CARE Condition: Stable Departure-Patient Inst. Referrals: LACEY MARTINEZ MD (PCP/Family) Primary Care Physician Patient Instructions: Cellulitis (Skin Infection), Adult ED, Coccyx Injury Add. Discharge Instructions: Take the medications as prescribed. Take the antibiotics until they are gone. Take the pain medication as needed. Do not take other anti-inflammatory medicines while taking this but you may add Tylenol. Return to the emergency department in 48 hours if your breast symptoms are not improving. Follow-up with your primary doctor should your pain in your tailbone persist. All discharge instructions reviewed with patient and/or family. Voiced understanding. Scripts Ketorolac Tromethamine (Ketorolac Tromethamine) 10 Mg Tablet 10 MG PO TID for Pain for 3 Days, #9 TAB Prov: MINDY LEDBETTER DO 09/24/22 Sulfamethoxazole/Trimethoprim (Bactrim Ds Tablet) 1 Each Tablet 1 EACH PO BID for 7 Days, #14 TAB Prov: MINDY LEDBETTER DO 09/24/22 MINDY LEDBETTER DO Sep 24, 2022 09:12
== END 2022-09-24 09:18 | disposition home or self-care (01) ==
LOC: EDUNIT# 08:31 → ER 08:34
DX: M53.3 Sacrococcygeal disorders, not elsewhere classified (principal); N61.0 Mastitis without abscess; Z88.1 Allergy status to other antibiotic agents; W01.0XXA Fall on same level from slipping, tripping and stumbling without subsequent striking against object, initial encounter; Y93.K1 Activity, walking an animal
CPT/HCPCS: 99284

== ENCOUNTER 2022-09-26 13:34 | Emergency (ER) | payer MEDICAID ==
[~2022-09-26 13:34] MED LIST changes: +KETO10TA PO; +SULF1TAB38 PO
--- NOTE | 2022-09-26 13:52 | ED Integumentary General ---
"General Chief Complaint: Skin/Wound Problems Stated Complaint: INFECTION | RECHECK ON WOUND Source: patient Exam Limitations: no limitations (NICOLE NIELSON) History of Present Illness Date Seen by Provider: Sep 26, 2022 Time Seen by Provider: 13:49 Initial Comments Patient is a 42-year-old female presents ED with a wound to her right breast. She was seen here 2 days ago placed on Bactrim for concern for infection. She states yesterday the area ruptured with purulent drainage. She noted increased warmth, redness and pain to this area. No active purulent drainage on arrival. Denies fever, chills, body aches, abdominal pain, vomiting, diarrhea. She was given Toradol which she has been taking. Currently on Bactrim. It was recommended to return back to ED if symptoms worsen. (NICOLE NIELSON) Allergies and Home Medications Allergies Coded Allergies: Penicillins (Verified Allergy, Unknown, 01/28/19) fentanyl (Verified Allergy, Unknown, 04/05/22) haloperidol (Verified Allergy, Unknown, 01/28/19) hydroxyzine (Verified Allergy, Unknown, 04/05/22) latex (Verified Allergy, Unknown, 01/28/19) promethazine (Verified Allergy, Unknown, 01/28/19) tramadol (Verified Allergy, Unknown, 01/05/22) Patient Home Medication List Home Medication List Reviewed: Yes (NICOLE NIELSON) Clindamycin HCl (Clindamycin HCl) 300 Mg Capsule, 300 MG PO QID Prescribed by: EVETTE SIERRA on 12/05/21 1406 Hydrocodone/Acetaminophen (Hydrocodone-Acetamin 5-325 mg) 5 Mg-325 Mg Tablet, 1 TAB PO Q4H PRN for PAIN-MODERATE (5-7) Prescribed by: EVETTE SIERRA on 12/05/21 1407 Ketorolac Tromethamine (Ketorolac Tromethamine) 10 Mg Tablet, 10 MG PO TID Prescribed by: MINDY LEDBETTER MD on 09/24/22 0910 Methocarbamol (Robaxin-750) 750 Mg Tablet, 750 MG PO Q6H PRN for PAIN-MODERATE Prescribed by: AMANDA FORTUNE on 01/28/19 1059 Naproxen (Naprosyn) 500 Mg Tablet, 500 MG PO BID PRN for PAIN-MODERATE (5-7) Prescribed by: LISA SAXENA on 05/05/22 1141 Ondansetron (Ondansetron Odt) 4 Mg Tab.rapdis, 4 MG PO Q6H PRN for NAUSEA/VOMITING Prescribed by: JENNIFER REYNOSO on 11/26/21 1825 Oxycodone HCl/Acetaminophen (Percocet 5-325 mg Tablet) 1 Each Tablet, 1-2 TAB PO Q4H PRN for PAIN-BREAKTHROUGH Prescribed by: KIERA RUEDA on 04/05/22 0936 Prednisone (Prednisone) 20 Mg Tab, 40 MG PO DAILY Prescribed by: KIERA RUEDA on 04/05/22 0935 Prochlorperazine Maleate (Compazine) 10 Mg Tablet, 10 MG PO Q8H PRN for NAUSEA/VOMITING Prescribed by: Azeem Wadsworth on 05/27/22 1803 Sulfamethoxazole/Trimethoprim (Bactrim Ds Tablet) 1 Each Tablet, 1 EACH PO BID Prescribed by: MINDY LEDBETTER MD on 09/24/22 0910 Tranexamic Acid (Tranexamic Acid) 650 Mg Tablet, 1,300 MG PO TID Prescribed by: LISA SAXENA on 05/05/22 1130 Review of Systems Review of Systems Constitutional: No chills, No diaphoresis, No fever, No malaise, No weakness EENTM: No blurred vision, No double vision Respiratory: No cough Cardiovascular: No chest pain Gastrointestinal: No abdominal pain, No diarrhea, No nausea, No vomiting Genitourinary: No decreased output Musculoskeletal: No back pain, No joint pain Skin: No change in color, No change in hair/nails (NICOLE NIELOSN) All Other Systems Reviewed Negative Unless Noted: Yes (NICOLE NIELSON) Past Petnkcf-Uztxuv-Lnnrfl Hx Patient Social History Tobacco Use?: No Substance use?: No Alcohol Use?: No Pt feels they are or have been: No (NICOLE NIELSON) Immunizations Up To Date Tetanus Booster (TDap): Unknown PED Vaccines UTD: Yes First/Initial COVID19 Vaccinat: UNKNOWN Second COVID19 Vaccination Ugo: UNKNOWN Third COVID19 Vaccination Date: UNKNOWN (NICOLE NIELSON) Seasonal Allergies Seasonal Allergies: No (NICOLE NIELSON) Past Medical History Surgery/Hospitalization HX: 8 , 3 RT FOOT SURGERIES, 3 BREAST REDUCTIONS, TONSILS, APPENDIX, DEPRESSION. 05/11 FOOT SURG TARSAL TUNNEL RELEASE AND IS INFECTED ON L FOOT Surgeries: Yes (D&C) Appendectomy, Breast, Section, Tonsillectomy Respiratory: No Cardiac: Yes Neurological: Yes Headaches /Migraines Genitourinary: No Gastrointestinal: No Musculoskeletal: Yes Arthritis Endocrine: No HEENT: No Cancer: No Psychosocial: No (NICOLE NIELSON) Family Medical History No Pertinent Family Hx (NICOLE NIELSON) Physical Exam Vital Signs Vital Signs - First Documented 09/26/22 13:42 Temp 37.0 Pulse 109 Resp 20 B/P (MAP) 141/56 (84) Pulse Ox 98 O2 Delivery Room Air (KIERA MCMILLAN MD) Vital Signs Capillary Refill : (NICOLE NIELSON) General Appearance: WD/WN, no apparent distress HEENT: PERRL/EOMI, normal ENT inspection, TMs normal, pharynx normal Neck: non-tender, full range of motion, supple Cardiovascular: regular rate, rhythm, no edema, no gallop, no JVD Respiratory: chest non-tender, lungs clear, normal breath sounds, no respiratory distress, no accessory muscle use Gastrointestinal: normal bowel sounds, non tender, soft, no organomegaly Back: normal inspection, no CVA tenderness Extremities: normal range of motion, non-tender, normal inspection, no pedal edema Neurologic/Psychiatric: radio broadcaster II-XII nml as tested, no motor/sensory deficits, alert, normal mood/affect, oriented x 3 Skin: other (Drained open lesion to right lateral breast. Pea size mild surrounding erythema. No fluctuant mass. Tenderness to palpate) (NICOLE NIELSON) Procedures/Interventions Dental Procedures: Dental I&D (NICOLE NIELSON) Progress/Results/Core Measures Results/Orders Lab Results Laboratory Tests Test 09/26/22 14:06 Range/Units White Blood Count 7.6 4.3-11.0 10^3/uL Red Blood Count 5.34 H 3.80-5.11 10^6/uL Hemoglobin 16.3 H 11.5-16.0 g/dL Hematocrit 48 35-52 % Mean Corpuscular Volume 90 80-99 fL Mean Corpuscular Hemoglobin 31 25-34 pg Mean Corpuscular Hemoglobin Concent 34 32-36 g/dL Red Cell Distribution Width 12.1 10.0-14.5 % Platelet Count 283 130-400 10^3/uL Mean Platelet Volume 8.9 L 9.0-12.2 fL Immature Granulocyte % (Auto) 0 % Neutrophils (%) (Auto) 36 L 42-75 % Lymphocytes (%) (Auto) 47 H 12-44 % Monocytes (%) (Auto) 10 0-12 % Eosinophils (%) (Auto) 6 0-10 % Basophils (%) (Auto) 1 0-10 % Neutrophils # (Auto) 2.8 1.8-7.8 10^3/uL Lymphocytes # (Auto) 3.6 1.0-4.0 10^3/uL Monocytes # (Auto) 0.7 0.0-1.0 10^3/uL Eosinophils # (Auto) 0.5 H 0.0-0.3 10^3/uL Basophils # (Auto) 0.1 0.0-0.1 10^3/uL Immature Granulocyte # (Auto) 0.0 0.0-0.1 10^3/uL Sodium Level 136 135-145 MMOL/L Potassium Level 4.6 3.6-5.0 MMOL/L Chloride Level 109 H 98-107 MMOL/L Carbon Dioxide Level 19 L 21-32 MMOL/L Anion Gap 8 5-14 MMOL/L Blood Urea Nitrogen 8 7-18 MG/DL Creatinine 0.79 0.60-1.30 MG/DL Estimat Glomerular Filtration Rate 95 BUN/Creatinine Ratio 10 Glucose Level 84 70-105 MG/DL Calcium Level 8.6 8.5-10.1 MG/DL Corrected Calcium 8.7 8.5-10.1 MG/DL Total Bilirubin 0.4 0.1-1.0 MG/DL Aspartate Amino Transf (AST/SGOT) 17 5-34 U/L Alanine Aminotransferase (ALT/SGPT) 14 0-55 U/L Alkaline Phosphatase 62 40-136 U/L Total Protein 6.9 6.4-8.2 GM/DL Albumin 3.9 3.2-4.5 GM/DL (KIERA MCMILLAN MD) Micro Results Microbiology 09/26/22 Gram Stain - Final, Resulted 09/26/22 Wound Culture, Resulted Pending (KIERA MCMILLAN MD) Vital Signs/I&O 09/26/22 09/26/22 13:42 15:37 Temp 37.0 Pulse 109 111 Resp 20 20 B/P (MAP) 141/56 (84) 126/64 Pulse Ox 98 98 O2 Delivery Room Air Room Air (KIERA MCMILLAN MD) Departure Communication (PCP) Reviewed previous ER visits, H&P, and lab testing, medication list. Patient presents ED with worsening lesion to right side of breast. Patient was seen here 2 days ago started on Bactrim. Lesion started 2 days prior before her visit 2 days ago. She reports drainage yesterday. On exam patient has a pea- sized active draining skin lesion. Concerning that she developed an abscess that eventually ruptured. Localized surrounding erythema. No fluctuant mass noted. No necrotic tissue. Area appears to be healing and I do think this should continue to improve. She is requesting a dose of IV antibiotics. She is highly anxious. Provided clindamycin. CBC, CMP was ordered due to the worsening pain and worsening skin condition. CBC, CMP grossly unremarkable. Patient started developing itching after the clindamycin. She was given dose of Benadryl with improvement in itching. No evidence of rash. She is requesting a dose of Percocet for her pain. Discussed wound care at home Neosporin topical. Continue applying dressing to the area. Recommend follow-up with PCP in 3 to 4 days for reevaluation. Provided general surgery outpatient follow-up if any further debridement. Patient does not appear toxic or septic. (NICOLE NIELSON) Impression Primary Impression: Cellulitis Disposition: 01 HOME, SELF-CARE Condition: Stable Departure-Patient Inst. Decision time for Depature: 15:21 (NICOLE NIELSON) Referrals: LACEY MARTINEZ MD (PCP/Family) Primary Care Physician Patient Instructions: Cellulitis (Skin Infection), Adult ED Add. Discharge Instructions: Recommend continue with your Bactrim. Keep the area clean with soap and water. Apply Neosporin twice a day until healed. Allow the lesion to continue draining. If worsening redness or swelling to return back to ED. All discharge instructions reviewed with patient and/or family. Voiced understanding. ATTENDING PHYSICIAN NOTE: I was physically present as attending physician in the emergency department during the care of this patient, but I was not directly involved in the decision making or delivery of care for this patient. (KIERA MCMILLAN MD) NICOLE NIELSON Sep 26, 2022 13:52 KIERA MCMILLAN MD Sep 27, 2022 09:08"
[2022-09-26] MEDS ORDERED: CLINDAMYCIN 600 MG/50 ML IVPB 50 ML IV ONE (14:00)
[2022-09-26 14:18] LABS: BASOPHILS # (AUTO) 0.1 10^3/uL (0.0-0.1); BASOPHILS % (AUTO) 1 % (0-10); EOSINOPHILS # (AUTO) 0.5 10^3/uL (0.0-0.3); EOSINOPHILS % (AUTO) 6 % (0-10); HEMATOCRIT 48 % (35-52); HEMOGLOBIN 16.3 g/dL (11.5-16.0); LYMPHOCYTES # (AUTO) 3.6 10^3/uL (1.0-4.0); LYMPHOCYTES % (AUTO) 47 % (12-44); MEAN CORPUSCULAR HEMOGLOBIN 31 pg (25-34); MEAN CORPUSCULAR HGB CONC 34 g/dL (32-36); MEAN CORPUSCULAR VOLUME 90 fL (80-99); MEAN PLATELET VOLUME 8.9 fL (9.0-12.2); MONOCYTES # (AUTO) 0.7 10^3/uL (0.0-1.0); MONOCYTES % (AUTO) 10 % (0-12); NEUTROPHILS # (AUTO) 2.8 10^3/uL (1.8-7.8); NEUTROPHILS % (AUTO) 36 % (42-75); PLATELET COUNT 283 10^3/uL (130-400); WHITE BLOOD COUNT 7.6 10^3/uL (4.3-11.0)
[2022-09-26 14:28] LABS: ALBUMIN 3.9 GM/DL (3.2-4.5); POTASSIUM 4.6 MMOL/L (3.6-5.0)
[2022-09-26 14:30] LABS: CALCIUM 8.6 MG/DL (8.5-10.1)
[2022-09-26 14:31] LABS: TOTAL PROTEIN 6.9 GM/DL (6.4-8.2)
[2022-09-26 14:33] LABS: BILIRUBIN,TOTAL 0.4 MG/DL (0.1-1.0)
[2022-09-26 14:34] LABS: CREATININE SERUM 0.79 MG/DL (0.60-1.30)
[2022-09-26] MEDS ORDERED: diphenhydrAMINE 50 MG/ML INJ (BENADRYL) IVP ONE (14:45)
[2022-09-26 15:37] VITALS: BP 126/64
== END 2022-09-26 15:38 | disposition home or self-care (01) ==
LOC: EDUNIT# 13:34 → ER 13:36
DX: N61.1 Abscess of the breast and nipple (principal); Z91.040 Latex allergy status; Z88.0 Allergy status to penicillin
CPT/HCPCS: 36415; 80053; 85025; 87070; 87205

== ENCOUNTER 2022-09-30 13:08 | Emergency (ER) | payer MEDICAID ==
[~2022-09-30] VITALS: Ht 167 cm; Wt 140.0 kg
[2022-09-30 13:20] VITALS: BP 148/107
--- NOTE | 2022-09-30 13:49 | ED Back Pain ---
General Chief Complaint: Back Problems Stated Complaint: FALL BACK PAIN Nursing Triage Note: PT AMB TO TRIAGE. PT CO OF LOWER BACK PAIN FROM FALL APPROX 2 WEEKS AGO. PT STATES HAVING DIFFICULTY SLEEPING, NAUSEA AND ELEVATED HR. RATES PAIN 04/10 Source of Information: Patient Exam Limitations: No Limitations (BRENDA KEITH APRN) History of Present Illness Date Seen by Provider: Sep 30, 2022 Time Seen by Provider: 13:38 Initial Comments 42-year-old female presents to the ED with complaints of coccyx and bilateral hip pain which started approximately 1.5 weeks ago after a fall. States she fell and landed on her tailbone. Reports the pain has increasingly gotten worse, states it is causing vomiting, and elevated heart rate. She denies any numbness or tingling in her legs. Reports chronic numbness in her feet, denies any change to this. Denies any saddle paresthesia, denies bowel or bladder incontinence, is able to walk. Denies fevers, chest pain, shortness of breath, abdominal pain. (BRENDA KEITH APRN) Allergies and Home Medications Allergies Coded Allergies: Penicillins (Verified Allergy, Unknown, 01/28/19) fentanyl (Verified Allergy, Unknown, 04/05/22) haloperidol (Verified Allergy, Unknown, 01/28/19) hydroxyzine (Verified Allergy, Unknown, 04/05/22) latex (Verified Allergy, Unknown, 01/28/19) promethazine (Verified Allergy, Unknown, 01/28/19) tramadol (Verified Allergy, Unknown, 01/05/22) Patient Home Medication List Home Medication List Reviewed: Yes (BRENDA KEITH APRN) Clindamycin HCl (Clindamycin HCl) 300 Mg Capsule, 300 MG PO QID Prescribed by: EVETTE SIERRA on 12/05/21 1406 Hydrocodone/Acetaminophen (Hydrocodone-Acetamin 5-325 mg) 5 Mg-325 Mg Tablet, 1 TAB PO Q4H PRN for PAIN-MODERATE (5-7) Prescribed by: EVETTE SIERRA on 12/05/21 1407 Hydrocodone/Acetaminophen (Hydrocodone-Acetamin 5-325 mg) 5 Mg-325 Mg Tablet, 1 TAB PO Q4H PRN for PAIN-MODERATE (5-7) Prescribed by: KIERA RUEDA on 09/30/22 1614 Ketorolac Tromethamine (Ketorolac Tromethamine) 10 Mg Tablet, 10 MG PO TID Prescribed by: MINDY LEDBETTER MD on 09/24/22 0910 Methocarbamol (Robaxin-750) 750 Mg Tablet, 750 MG PO Q6H PRN for PAIN-MODERATE Prescribed by: AMANDA FORTUNE on 01/28/19 1059 Naproxen (Naprosyn) 500 Mg Tablet, 500 MG PO BID PRN for PAIN-MODERATE (5-7) Prescribed by: LISA SAXENA on 05/05/22 1141 Ondansetron (Ondansetron Odt) 4 Mg Tab.rapdis, 4 MG PO Q6H PRN for NAUSEA/VOMITING Prescribed by: JENNIFER REYNOSO on 11/26/21 1825 Oxycodone HCl/Acetaminophen (Percocet 5-325 mg Tablet) 1 Each Tablet, 1-2 TAB PO Q4H PRN for PAIN-BREAKTHROUGH Prescribed by: KIERA RUEDA on 04/05/22 0936 Prednisone (Prednisone) 20 Mg Tab, 40 MG PO DAILY Prescribed by: KIERA RUEDA on 04/05/22 0935 Prochlorperazine Maleate (Compazine) 10 Mg Tablet, 10 MG PO Q8H PRN for NAUSEA/VOMITING Prescribed by: Azeem Wadsworth on 05/27/22 1803 Sulfamethoxazole/Trimethoprim (Bactrim Ds Tablet) 1 Each Tablet, 1 EACH PO BID Prescribed by: MINDY LEDBETTER MD on 09/24/22 0910 Tranexamic Acid (Tranexamic Acid) 650 Mg Tablet, 1,300 MG PO TID Prescribed by: LISA SAXENA on 05/05/22 1130 Review of Systems Constitutional: see HPI (BRENDA KEITH APRN) Past Ry[place]oei-Prpfho-Zzzkhl Hx Patient Social History Tobacco Use?: No Substance use?: No Alcohol Use?: No Pt feels they are or have been: No (BRENDA KEITH APRN) Immunizations Up To Date Tetanus Booster (TDap): Unknown PED Vaccines UTD: Yes First/Initial COVID19 Vaccinat: UNKNOWN Second COVID19 Vaccination Ugo: UNKNOWN Third COVID19 Vaccination Date: UNKNOWN (BRENDA KEITH APRN) Seasonal Allergies Seasonal Allergies: No (BRENDA KEITH APRN) Past Medical History Surgery/Hospitalization HX: 8 , 4 RT FOOT SURGERIES 1 L FOOT SURG, 3 BREAST REDUCTIONS, TONSILS, APPENDIX, DEPRESSION. 05/11 FOOT SURG TARSAL TUNNEL RELEASE AND IS INFECTED ON L FOOT Surgeries: Yes (D&C) Appendectomy, Breast, Section, Tonsillectomy Respiratory: No Cardiac: Yes Neurological: Yes Headaches /Migraines Genitourinary: No Gastrointestinal: No Musculoskeletal: Yes Arthritis Endocrine: No HEENT: No Cancer: No Psychosocial: No (BRENDA KEITH APRN) Family Medical History No Pertinent Family Hx (BRENDA KEITH APRN) Physical Exam Vital Signs Vital Signs - First Documented 09/30/22 13:20 Temp 36.6 Pulse 127 Resp 16 B/P (MAP) 148/107 (121) Pulse Ox 96 (KIERA MCMILLAN MD) Vital Signs Capillary Refill : Less Than 3 Seconds (BRENDA KEITH APRN) Height, Weight, BMI Height: 5'6.00" Weight: 274lbs. oz. 124.489483ca; 50.00 BMI Method:Stated General Appearance: WD/WN, Mild Distress Neck: Non Tender, Supple Cardiovascular: Regular Rate, Rhythm, No Edema, No Gallop, No JVD, No Murmur Respiratory: Lungs Clear, Normal Breath Sounds, No Accessory Muscle Use, No Respiratory Distress Back: No Vertebral Tenderness Extremity: Normal Inspection Neurologic/Psychiatric: Alert, Normal Mood/Affect Skin: Normal Color, Warm/Dry (BRENDA KEITH APRN) Procedures/Interventions Dental Procedures: Dental I&D (BRENDA KEITH APRN) Progress/Results/Core Measures Results/Orders Medications Given in ED Current Medications Medications Dose Ordered Sig/Barb Route Start Time Stop Time Status Last Admin Dose Admin Acetaminophen/ Hydrocodone Bitart 1 ea ONCE ONCE PO 09/30/22 14:00 09/30/22 14:01 DC 09/30/22 14:01 1 EA (KIERA MCMILLAN MD) Vital Signs/I&O 09/30/22 13:20 Temp 36.6 Pulse 127 Resp 16 B/P (MAP) 148/107 (121) Pulse Ox 96 (KIERA MCMILLAN MD) Blood Pressure Mean: 121 Progress Progress Note : Time: 13:48 Progress Note Patient seen and evaluated, resting in bed, mild distress. Based on exam and symptoms, x-ray of sacrum and coccyx and bilateral hips ordered. Hydrocodone ordered. 1440 x-rays reviewed. No fracture of the hips, pelvis, or sacrum. Results discussed with patient. Will discharge patient with short course of pain medication. Discharge direction and return precautions provided. (BRENDA KEITH APRN) Diagnostic Imaging Diagonstic Imaging: Xray Plain Films/CT/US/NM/MRI: pelvis, hip Comments [facility] [place], [place] [facility] REC[facility] [id number] PT STATUS: REG ER : 1980 PHYSICIAN: BRENDA KEITH APRN ADMIT DATE: 09/30/22/ER Signed Date of Exam:09/30/22 PELVIS/ARTURO HIPS 5> VIEWS CLINICAL HISTORY: Fall. Hip and pelvic pain. COMPARISON: None. TECHNIQUE: Five views of the pelvis and bilateral hips. FINDINGS: There is no acute fracture or dislocation of the pelvis and bilateral hips. Alignment is anatomic. The imaged joint spaces are preserved. No focal osseous lesions. IMPRESSION: No acute fracture in the pelvis and bilateral hips. Dictated by: Dictated on workstation # [id number] Dict: 09/30/22 1427 Trans: 09/30/22 1432 [id number] Interpreted by: KEIAR QUINTANA DO Electronically signed by: KEIRA QUINTANA DO 09/30/22 1432 Diagonstic Imaging: Xray Plain Films/CT/US/NM/MRI: other (Coccyx) Comments [facility] [place] [place] [facility] REC#: [id number] PT STATUS: REG ER : 1980 PHYSICIAN: BRENDA KEITH APRN ADMIT DATE: 09/30/22/ER Signed Date of Exam:09/30/22 SACRUM AND COCCYX CLINICAL HISTORY: Fall. Sacral pain. COMPARISON: None. TECHNIQUE: 3 views of the sacrum. FINDINGS: There is no acute fracture or dislocation of the sacrum. Alignment is anatomic. The imaged joint spaces are preserved. IMPRESSION: 1. No acute fracture of the sacrum. Dictated by: Dictated on workstation # [id number] Dict: 09/30/22 1428 Trans: 09/30/22 1432 CV [id number] Interpreted by: KEIRA QUINTANA DO Electronically signed by: KEIRA QUINTANA DO 09/30/22 1432 (BRENDA KEITH APRN) Departure Impression Primary Impression: Coccyx pain Disposition: HOME, SELF-CARE Condition: Stable Departure-Patient Inst. Decision time for Depature: 14:43 (BRENDA KEITH APRN) Referrals: LACEY MARTINEZ MD (PCP/Family) Primary Care Physician Patient Instructions: Low Back Pain (DC) Add. Discharge Instructions: Take pain medication as prescribed. You may continue to take your home medications. Follow-up with your primary care provider. Return for numbness or tingling in between your thighs, episodes of bowel or bladder incontinence, inability to walk, or any other new, concerning, or worsening symptoms. All discharge instructions reviewed with patient and/or family. Voiced understanding. Scripts Hydrocodone/Acetaminophen (Hydrocodone-Acetamin 5-325 mg) 5 Mg-325 Mg Tablet 1 TAB PO Q4H PRN for PAIN-MODERATE (5-7), #10 TAB 0 Refills Prov: KIERA MCMILLAN MD 09/30/22 ATTENDING PHYSICIAN NOTE: I was physically present as attending physician in the emergency department during the care of this patient, but I was not directly involved in the decision making or delivery of care for this patient. The hydrocodone prescription written by Brenda Keith was rejected by the pharmacy as a not a valid prescriber. Prescription was resent by me. (KIERA MCMILLAN MD) BRENDA KEITH APRN Sep 30, 2022 13:49 KIERA MCMILLAN MD Sep 30, 2022 16:14
--- NOTE | 2022-09-30 14:31 | Diagnostic Imaging Report ---
CLINICAL HISTORY: Fall. Sacral pain. COMPARISON: None. TECHNIQUE: 3 views of the sacrum. FINDINGS: There is no acute fracture or dislocation of the sacrum. Alignment is anatomic. The imaged joint spaces are preserved. IMPRESSION: 1. No acute fracture of the sacrum. Dictated by: Dictated on workstation # [id number]
--- NOTE | 2022-09-30 14:31 | Diagnostic Imaging Report ---
CLINICAL HISTORY: Fall. Hip and pelvic pain. COMPARISON: None. TECHNIQUE: Five views of the pelvis and bilateral hips. FINDINGS: There is no acute fracture or dislocation of the pelvis and bilateral hips. Alignment is anatomic. The imaged joint spaces are preserved. No focal osseous lesions. IMPRESSION: No acute fracture in the pelvis and bilateral hips. Dictated by: Dictated on workstation # [id number]
[2022-09-30] MEDS ORDERED: ACHD5005 PO ×2 (14:44→16:13)
== END 2022-09-30 14:49 | disposition home or self-care (01) ==
LOC: EDUNIT# 13:08 → ER 13:13
DX: M53.3 Sacrococcygeal disorders, not elsewhere classified (principal); M25.552 Pain in left hip; M25.551 Pain in right hip; Z91.040 Latex allergy status; Z88.5 Allergy status to narcotic agent; W18.30XA Fall on same level, unspecified, initial encounter
CPT/HCPCS: 72220; 73523

== ENCOUNTER 2022-10-15 17:53 | Emergency (ER) | payer MEDICAID ==
[~2022-10-15] VITALS: Ht 167.7 cm; Wt 140.0 kg
--- NOTE | 2022-10-15 19:16 | ED Lower Extremity ---
General Stated Complaint: LEFT KNEE PAIN History of Present Illness Date Seen by Provider: Oct 15, 2022 Time Seen by Provider: 19:04 Initial Comments 42-year-old female is here with complaints of left knee pain for the past 1 week, which is significantly worsened today morning, to the point that she is unable to bear weight on it. Patient has crutches at home and she has been using that today. Patient had a fall 1 week ago and that is the cause of her pain. Patient had fallen directly onto her knee. Patient also complains of associated left knee swelling. Denies sensory loss, head strike, or LOC. Patient has never injured her left knee before, and has never had surgery on that knee. Allergies and Home Medications Allergies Coded Allergies: Penicillins (Verified Allergy, Unknown, 01/28/19) fentanyl (Verified Allergy, Unknown, 04/05/22) haloperidol (Verified Allergy, Unknown, 01/28/19) hydroxyzine (Verified Allergy, Unknown, 04/05/22) latex (Verified Allergy, Unknown, 01/28/19) promethazine (Verified Allergy, Unknown, 01/28/19) tramadol (Verified Allergy, Unknown, 01/05/22) Patient Home Medication List Home Medication List Reviewed: Yes Clindamycin HCl (Clindamycin HCl) 300 Mg Capsule, 300 MG PO QID Prescribed by: EVETTE SIERRA on 12/05/21 1406 Hydrocodone/Acetaminophen (Hydrocodone-Acetamin 5-325 mg) 5 Mg-325 Mg Tablet, 1 TAB PO Q4H PRN for PAIN-MODERATE (5-7) Prescribed by: EVETTE SIERRA on 12/05/21 1407 Hydrocodone/Acetaminophen (Hydrocodone-Acetamin 5-325 mg) 5 Mg-325 Mg Tablet, 1 TAB PO Q4H PRN for PAIN-MODERATE (5-7) Prescribed by: KIERA RUEDA on 09/30/22 1614 Ketorolac Tromethamine (Ketorolac Tromethamine) 10 Mg Tablet, 10 MG PO TID Prescribed by: MINDY LEDBETTER MD on 09/24/22 0910 Methocarbamol (Robaxin-750) 750 Mg Tablet, 750 MG PO Q6H PRN for PAIN-MODERATE Prescribed by: AMANDA FORTUNE on 01/28/19 1059 Naproxen (Naprosyn) 500 Mg Tablet, 500 MG PO BID PRN for PAIN-MODERATE (5-7) Prescribed by: LISA SAXENA on 05/05/22 1141 Ondansetron (Ondansetron Odt) 4 Mg Tab.rapdis, 4 MG PO Q6H PRN for NAUSEA/VOMITING Prescribed by: JENNIFER REYNOSO on 11/26/21 1825 Oxycodone HCl/Acetaminophen (Percocet 5-325 mg Tablet) 1 Each Tablet, 1-2 TAB PO Q4H PRN for PAIN-BREAKTHROUGH Prescribed by: KIERA RUEDA on 04/05/22 0936 Prednisone (Prednisone) 20 Mg Tab, 40 MG PO DAILY Prescribed by: KIERA RUEDA on 04/05/22 0935 Prochlorperazine Maleate (Compazine) 10 Mg Tablet, 10 MG PO Q8H PRN for NAUSEA/VOMITING Prescribed by: Azeem Wadsworth on 05/27/22 180 Sulfamethoxazole/Trimethoprim (Bactrim Ds Tablet) 1 Each Tablet, 1 EACH PO BID Prescribed by: MINDY LEDBETTER MD on 09/24/22 0910 Tranexamic Acid (Tranexamic Acid) 650 Mg Tablet, 1,300 MG PO TID Prescribed by: LISA SAXENA on 05/05/22 1130 Review of Systems Constitutional: no symptoms reported EENTM: no symptoms reported Respiratory: no symptoms reported Cardiovascular: no symptoms reported Gastrointestinal: no symptoms reported Genitourinary: no symptoms reported Musculoskeletal: joint pain, joint swelling Skin: no symptoms reported Psychiatric/Neurological: No Symptoms Reported Past Damdmqc-Yrzwgk-Svgknj Hx Immunizations Up To Date Tetanus Booster (TDap): Unknown PED Vaccines UTD: Yes First/Initial COVID19 Vaccinat: UNKNOWN Second COVID19 Vaccination Ugo: UNKNOWN Third COVID19 Vaccination Date: UNKNOWN Seasonal Allergies Seasonal Allergies: No Past Medical History Surgery/Hospitalization HX: 8 , 4 RT FOOT SURGERIES 1 L FOOT SURG, 3 BREAST REDUCTIONS, TONSILS, APPENDIX, DEPRESSION. 05/11 FOOT SURG TARSAL TUNNEL RELEASE AND IS INFECTED ON L FOOT Surgeries: Yes (D&C) Appendectomy, Breast, Section, Tonsillectomy Respiratory: No Cardiac: Yes Neurological: Yes Headaches /Migraines Genitourinary: No Gastrointestinal: No Musculoskeletal: Yes Arthritis Endocrine: No HEENT: No Cancer: No Psychosocial: No Family Medical History No Pertinent Family Hx Physical Exam Vital Signs Vital Signs - First Documented 10/15/22 18:55 Temp 37.0 Pulse 116 Resp 20 B/P (MAP) 125/83 (97) Pulse Ox 97 O2 Delivery Room Air Capillary Refill : Height, Weight, BMI Height: 5'6.00" Weight: 274lbs. oz. 124.988946qs; 50.00 BMI Method:Stated General Appearance: WD/WN, no apparent distress HEENT: PERRL/EOMI Neck: full range of motion Hips: left hip non-tender, left hip normal inspection, left hip normal range of motion, left hip no evidence of injury Legs: left leg non-tender, left leg normal inspection, left leg normal range of motion, left leg no evidence of injury Knees: left knee normal range of motion (Patient appears to have full ROM, however it is painful.), left knee pain, left knee soft tissue tenderness (Tenderness present in the posterior knee as well as the medial side of the knee. No crepitus.), left knee swelling, left knee other (Unable to bear weight or ambulate on the leg. Patient is using crutches which she had at home.) Ankles: left ankle non-tender, left ankle normal inspection, left ankle normal range of motion, left ankle no evidence of injury Reflexes: 4+ knee (L), 4+ ankle (L) Neurologic/Tendon: normal sensation, normal motor functions Neurologic/Psychiatric: alert, oriented x 3 Skin: normal color Procedures/Interventions Dental Procedures: Dental I&D Progress/Results/Core Measures Results/Orders My Orders Orders - NANDA MURRELL MD Knee, Left, 3 Views (10/15/22 18:43) Ketorolac Injection (Toradol Injection) (10/15/22 20:15) Vital Signs/I&O 10/15/22 18:55 Temp 37.0 Pulse 116 Resp 20 B/P (MAP) 125/83 (97) Pulse Ox 97 O2 Delivery Room Air Progress Progress Note : Progress Note 1. LEFT KNEE SPRAIN: - XR LEFT KNEE: - Pt is 300lbs and we do not have a Knee brace large enough to fit the pt. Will double CHRISTINA wrap instead. Pt has crutches already which she has brought to the ER - Toradol im STAT - Advised follow up with Ortho clinic within [address] Coyle's office. Call for appointment. - Crutches and CHRISTINA bandage. Elevate legs when sitting - Advised ice - Advised staggering Ibuprofen 600mg Q6H and Tylenol 650mg Q4H as needed for pain, along with lidoderm patch -The patient was seen in the ED, and treated appropriately to presentation at a specific point in time. Patient is informed that there is a possibility that disease and illness can evolve and change in acuity rapidly or slowly after patient is discharged from the ER. Precautionary advice given to the patient for immediate return to ER if symptoms worsen or do not resolve, and to seek emergency care sooner rather than later. Pt also advised on the importance of PCP follow up and compliance with management and follow up plan with PCP and/or specialist, as this is part of the management plan. Pt verbally expressed understanding. Diagnostic Imaging Diagonstic Imaging: Xray Plain Films/CT/US/NM/MRI: knee Departure Impression Primary Impression: Left knee sprain Qualified Codes: S83.92XA - Sprain of unspecified site of left knee, initial encounter Disposition: HOME, SELF-CARE Condition: Stable Departure-Patient Inst. Referrals: JASMYNE COYLE MD Patient Instructions: Knee Sprain (DC), Using Cold for Pain Add. Discharge Instructions: - Advised follow up with Ortho clinic within [address] Coyle's office. Call for appointment. - Crutches and CHRISTINA bandage. Elevate legs when sitting - Advised ice - Advised staggering Ibuprofen 600mg Q6H and Tylenol 650mg Q4H as needed for pain, along with lidoderm patch Work/School Note: Work Release Form Date Seen in the Emergency Department: Oct 15, 2022 Return to Work: Oct 18, 2022 Restrictions: No Sports-Until Released, Need Release from Doctor Other Restrictions Listed Below: Will need Ortho clearance prior to returning to work Ortho follow up NANDA MURRELL MD Oct 15, 2022 19:16
--- NOTE | 2022-10-15 19:57 | Diagnostic Imaging Report ---
CLINICAL HISTORY: Fall. Left knee pain. COMPARISON: None. TECHNIQUE: 3 views of the left knee. FINDINGS: There is no acute fracture or dislocation of the left knee. Alignment is anatomic. Mild degenerative changes are seen in the left knee with marginal osteophytes. No joint effusion in the left knee. IMPRESSION: 1. No acute fracture or dislocation in the left knee. 2. Mild osteoarthritis. Dictated by: Dictated on workstation # [id number]
[2022-10-15] MEDS ORDERED: KETOROLAC 30 MG/ML VIAL IM ONE (20:15)
[2022-10-15 20:25] VITALS: BP 122/76
== END 2022-10-15 20:25 | disposition home or self-care (01) ==
LOC: EDUNIT# 17:53 → ER 17:56
DX: S83.92XA Sprain of unspecified site of left knee, initial encounter (principal); W18.30XA Fall on same level, unspecified, initial encounter
CPT/HCPCS: 73562

== ENCOUNTER → 2022-10-19 | Outpatient (CLI) | payer MEDICAID | LOC: ORTHO 08:16 | PROVIDERS: ATTEND Orthopaedic Surgery | DX: M17.12 Unilateral primary osteoarthritis, left knee (principal); S83.92XA Sprain of unspecified site of left knee, initial encounter | CPT/HCPCS: 99203 ==

== ENCOUNTER 2022-10-24 16:14 | Emergency (ER) | payer MEDICAID ==
[~2022-10-24] VITALS: Ht 167.7 cm; Wt 140.0 kg
[2022-10-24 16:38] LABS: BILIRUBIN,URINE NEGATIVE (NEGATIVE); CLARITY,URINE CLOUDY; COLOR,URINE YELLOW; GLUCOSE, URINE (UA) NEGATIVE (NEGATIVE); KETONES,URINE NEGATIVE (NEGATIVE); LEUKOCYTE ESTERASE ,URINE 2+ (NEGATIVE); NITRITE,URINE NEGATIVE (NEGATIVE); PROTEIN,URINE NEGATIVE (NEGATIVE)
[2022-10-24] MEDS ORDERED: RT-ALBUTEROL/IPRATROPIUM 3 ML (DUONEB) VIAL INH ONE (16:45)
[2022-10-24] MEDS ORDERED: methylPREDNISolone 125 MG (Solu-MEDROL) VIAL IVP ONE (16:45)
[2022-10-24] MEDS ORDERED: NS IV 1000 ML 1,000 ML IV SCH (16:45)
[2022-10-24 16:54] LABS: BACTERIA,URINE FEW /HPF
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
--- NOTE | 2022-10-24 17:26 | Diagnostic Imaging Report ---
INDICATION: diminshed breath sounds COMPARISON: 01/05/2022 FINDINGS: Single frontal view of the chest demonstrates normal heart size and pulmonary vascularity. The lungs are well aerated and clear. No large pleural effusion or pneumothorax is seen. The visualized osseous structures show no acute abnormalities. IMPRESSION: 1. No acute cardiopulmonary process. Dictated by: Dictated on workstation # [id number]
[2022-10-24] MEDS ORDERED: metroNIDAZOLE 500 MG (FLAGYL) TAB PO ONE (18:30)
[2022-10-24] MEDS ORDERED: TRIM/SULFAMETH 160/800 (SEPTRA DS) TAB PO ONE (18:30)
[2022-10-24] MEDS ORDERED: METR-145 PO (18:40)
[2022-10-24] MEDS ORDERED: SULF1TAB38 PO (18:40)
[2022-10-24] MEDS ORDERED: ALBU2.5V4 INH (18:41)
[2022-10-24] MEDS ORDERED: POTASSIUM CL 10MEQ/50ML IVPB 50 ML IV ONE (18:45)
[2022-10-24] MEDS ORDERED: METH4TAB10 PO (18:57)
[2022-10-24 20:27] VITALS: BP 131/77
== END 2022-10-24 19:00 | disposition home or self-care (01) ==
LOC: EDUNIT# 16:14 → ER 16:17
DX: J40 Bronchitis, not specified as acute or chronic (principal); N39.0 Urinary tract infection, site not specified; N76.0 Acute vaginitis; R00.0 Tachycardia, unspecified; F17.290 Nicotine dependence, other tobacco product, uncomplicated; Z91.040 Latex allergy status; Z88.0 Allergy status to penicillin; Z20.822 Contact with and (suspected) exposure to COVID-19
CPT/HCPCS: 36415; 71045; 81000; 84703; 87077; 87088; 87186; 87210; 87491; 87591; 87636; 94640

== ENCOUNTER 2022-12-16 19:09 | Emergency (ER) | payer MEDICAID ==
[~2022-12-16] VITALS: Ht 167.7 cm; Wt 140.0 kg
[~2022-12-16 19:09] MED LIST changes: +ALBU2.5V4 INH; +METH4TAB10 PO; +METR-145 PO; +NITR-65 PO
[2022-12-16] MEDS ORDERED: ONDANSETRON 4 MG (ZOFRAN) ORAL DISSOLVE TAB PO STA (19:24)
[2022-12-16] MEDS ORDERED: SUMAtriptan 6 MG/0.5 ML (IMITREX) INJ SQ ONE (19:30)
[2022-12-16] MEDS ORDERED: KETOROLAC 30 MG/ML VIAL IM ONE (19:30)
[2022-12-16] MEDS ORDERED: ONDA8TAB13 SL (19:56)
[2022-12-16] MEDS ORDERED: KETO10TA PO (19:56)
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
[2022-12-16 20:00] VITALS: BP 133/97
== END 2022-12-16 20:03 | disposition home or self-care (01) ==
LOC: EDUNIT# 19:09 → ER 19:11
DX: G43.909 Migraine, unspecified, not intractable, without status migrainosus (principal); R19.7 Diarrhea, unspecified; Z91.040 Latex allergy status; Z88.6 Allergy status to analgesic agent
CPT/HCPCS: 99284

== ENCOUNTER 2023-02-28 15:39 | Emergency (ER) | payer MEDICAID ==
[~2023-02-28] VITALS: Ht 167 cm; Wt 133.0 kg
[~2023-02-28 15:39] MED LIST changes: +ONDA8TAB13 SL
[2023-02-28] MEDS ORDERED: ALBU2.5V4 INH (16:11)
[2023-02-28] MEDS ORDERED: DOXY100T31 PO (16:11)
[2023-02-28] MEDS ORDERED: PRD20T PO (16:11)
--- NOTE | 2023-02-28 16:11 | ED Cough/URI ---
General Chief Complaint: Cough/Cold/Flu Symptoms Stated Complaint: EARS HURT, BODY ACHES, HX OF [facility] Triage Note: ARRIVED VIA AMBULATORY TO ROOM 10 ET STATES SHE HAS BRONCHITIS/SINUSITIS. WHEN ASKED TO WEAR A MASK ET SHE STATES SHE DOES NOT HAVE COVID BECAUSE HER DAUGTER TESTED NEG YESTERDAY AND SHE CANT BREATHE WITH A MASK ON. Source: patient Exam Limitations: no limitations (NICOLE NIELSON) History of Present Illness Date Seen by Provider: Feb 28, 2023 Time Seen by Provider: 16:07 Initial Comments Patient is a 42-year-old female with a history of asthma, allergies who presents to ED for nasal congestion, body aches, fatigue, weakness and coughing. She reports a wet productive cough with some burning in the chest. She states she had a coughing fit right before arrival and vomited. Patient reports sinus pressure, ear fullness. Denies of any shortness of breath. She is out of her albuterol nebulizer canisters at home. Patient has not been using her inhalers at home. She denies any diarrhea, fever, current chest pain, abdominal pain, dysuria, hematuria. History of similar symptoms. History of chronic bronchitis. Denies history of CHF, heart disease, COPD. Previous smoker. (NICOLE NIELSON) Allergies and Home Medications Allergies Coded Allergies: Penicillins (Verified Allergy, Unknown, 01/28/19) fentanyl (Verified Allergy, Unknown, 04/05/22) haloperidol (Verified Allergy, Unknown, 01/28/19) hydroxyzine (Verified Allergy, Unknown, 04/05/22) latex (Verified Allergy, Unknown, 01/28/19) promethazine (Verified Allergy, Unknown, 01/28/19) tramadol (Verified Allergy, Unknown, 01/05/22) Patient Home Medication List Home Medication List Reviewed: Yes (NICOLE NIELSON) Albuterol Sulfate (Albuterol Sulfate) 2.5 Mg/3 Ml (0.083 %) Vial.neb, 2.5 MG INH Q4H Prescribed by: Brenda Julio on 10/24/22 2406 Albuterol Sulfate (Albuterol Sulfate) 2.5 Mg/3 Ml (0.083 %) Vial.neb, 2.5 MG INH Q4H Prescribed by: EVETTE SIERRA on 02/28/23 1611 Clindamycin HCl (Clindamycin HCl) 300 Mg Capsule, 300 MG PO QID Prescribed by: EVETTE SIERRA on 12/05/21 1406 Doxycycline Monohydrate (Doxycycline Monohydrate) 100 Mg Tablet, 100 MG PO BID Prescribed by: EVETTE SIERRA on 02/28/23 1611 Hydrocodone/Acetaminophen (Hydrocodone-Acetamin 5-325 mg) 5 Mg-325 Mg Tablet, 1 TAB PO Q4H PRN for PAIN-MODERATE (5-7) Prescribed by: EVETTE SIERRA on 12/05/21 1407 Hydrocodone/Acetaminophen (Hydrocodone-Acetamin 5-325 mg) 5 Mg-325 Mg Tablet, 1 TAB PO Q4H PRN for PAIN-MODERATE (5-7) Prescribed by: KIERA RUEDA on 09/30/22 1614 Ketorolac Tromethamine (Ketorolac Tromethamine) 10 Mg Tablet, 10 MG PO TID Prescribed by: MINDY LEDBETTER MD on 09/24/22 0910 Ketorolac Tromethamine (Ketorolac Tromethamine) 10 Mg Tablet, 10 MG PO TID Prescribed by: MINDY LEDBETTER MD on 12/16/22 1956 Methocarbamol (Robaxin-750) 750 Mg Tablet, 750 MG PO Q6H PRN for PAIN-MODERATE Prescribed by: AMANDA FORTUNE on 01/28/19 1059 Methylprednisolone (Methylprednisolone Dose Pack) 4 Mg Tab.ds.pk, 4 MG PO UD Prescribed by: Brenda Julio on 10/24/22 1857 Metronidazole (Metronidazole) 500 Mg Tablet, 500 MG PO BID Prescribed by: Brenda Julio on 10/24/22 1840 Naproxen (Naprosyn) 500 Mg Tablet, 500 MG PO BID PRN for PAIN-MODERATE (5-7) Prescribed by: LISA SAXENA on 05/05/22 1141 Nitrofurantoin Monohyd/M-Cryst (Macrobid 100 mg Capsule) 100 Mg Capsule, 1 TAB PO BID Prescribed by: KIERA RUEDA on 10/28/22 1254 Ondansetron (Ondansetron Odt) 4 Mg Tab.rapdis, 4 MG PO Q6H PRN for NAUSEA/VOMITING Prescribed by: JENNIFER REYNOSO on 11/26/21 1825 Ondansetron (Ondansetron Odt) 8 Mg Tab.rapdis, 8 MG SL Q6H PRN for NAUSEA/VOMITING Prescribed by: MINDY LEDBETTER MD on 12/16/22 195 Oxycodone HCl/Acetaminophen (Percocet 5-325 mg Tablet) 1 Each Tablet, 1-2 TAB PO Q4H PRN for PAIN-BREAKTHROUGH Prescribed by: KIERA RUEDA on 04/05/22 0936 Prednisone (Prednisone) 20 Mg Tab, 40 MG PO DAILY Prescribed by: KIERA RUEDA on 04/05/22 0935 Prednisone (Prednisone) 20 Mg Tab, 40 MG PO DAILY Prescribed by: EVETTE SIERRA on 02/28/23 1611 Prochlorperazine Maleate (Compazine) 10 Mg Tablet, 10 MG PO Q8H PRN for NAUSEA/VOMITING Prescribed by: Azeem Wadsworth on 05/27/22 1803 Sulfamethoxazole/Trimethoprim (Bactrim Ds Tablet) 1 Each Tablet, 1 EACH PO BID Prescribed by: MINDY LEDBETTER MD on 09/24/22 0910 Sulfamethoxazole/Trimethoprim (Bactrim Ds Tablet) 1 Each Tablet, 1 EACH PO BID Prescribed by: Brenda Julio on 10/24/22 1840 Tranexamic Acid (Tranexamic Acid) 650 Mg Tablet, 1,300 MG PO TID Prescribed by: LISA SAXENA on 05/05/22 1130 Review of Systems Review of Systems Constitutional: No chills, No diaphoresis, No fever; malaise, weakness EENTM: ear pain; No blurred vision, No double vision Respiratory: cough; No short of breath Cardiovascular: No chest pain Gastrointestinal: No abdominal pain, No diarrhea, No nausea; vomiting Genitourinary: No decreased output, No discharge Musculoskeletal: No back pain Skin: No change in color (NICOLE NIELSON) All Other Systems Reviewed Negative Unless Noted: Yes (NICOLE NIELSON) Past Yugbxza-Pdqiuf-Ckkckt Hx Patient Social History Tobacco Use?: No Substance use?: Yes Substance type: Marijuana Additional substance use comme: EDIBLES 2 WEEKS AGO Alcohol Use?: No (NICOLE NIELSON) Immunizations Up To Date Tetanus Booster (TDap): Unknown PED Vaccines UTD: Yes First/Initial COVID19 Vaccinat: 2020 Second COVID19 Vaccination Ugo: 2020 Third COVID19 Vaccination Date: NONE (NICOLE NIELSON) Seasonal Allergies Seasonal Allergies: No (NICOLE NIELSON) Past Medical History Surgery/Hospitalization HX: c-sect, 4 RT FOOT SURGERIES 1 L FOOT SURG, 3 BREAST REDUCTIONS, TONSILS, APPENDIX, DEPRESSION. 05/11 FOOT SURG TARSAL TUNNEL RELEASE, DM, TIA, DEPRESSION, ANXIETY Surgeries: Yes (D&C) Appendectomy, Breast, Section, Tonsillectomy Respiratory: No Cardiac: Yes Neurological: Yes Headaches /Migraines Genitourinary: No Gastrointestinal: No Musculoskeletal: Yes Arthritis Endocrine: No HEENT: No Cancer: No Psychosocial: No (NICOLE NIELSON) Family Medical History No Pertinent Family Hx (NICOLE NIELSON) Physical Exam Vital Signs - First Documented 02/28/23 15:48 Temp 36.4 Pulse 110 Resp 16 B/P (MAP) 136/69 (91) Pulse Ox 99 O2 Delivery Room Air (KIERA MCMILLAN MD) Capillary Refill : Less Than 3 Seconds (NICOLE NIELSON) Height: 5'6.00" Weight: 274lbs. oz. 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, no motor/sensory deficits, alert, normal mood/affect, oriented x 3 Skin: normal color, warm/dry (NICOLE NIELSON) Procedures/Interventions Dental Procedures: Dental I&D (NICOLE NIELSON) Progress/Results/Core Measures Suspected Sepsis SIRS Temperature: Pulse: 110 Respiratory Rate: 16 Blood Pressure 136 /69 Mean: 91 (NICOLE NIELSON) Results/Orders Lab Results Laboratory Tests Test 02/28/23 16:06 Range/Units Influenza Type A (RT-PCR) Not Detected Not Detecte Influenza Type B (RT-PCR) Not Detected Not Detecte SARS-CoV-2 RNA (RT-PCR) Not Detected Not Detecte (KIERA MCMILLAN MD) Medications Given in ED Current Medications Medications Dose Ordered Sig/Barb Route Start Time Stop Time Status Last Admin Dose Admin Methylprednisolone Sodium Succinate 125 mg ONCE ONCE IM 02/28/23 16:15 02/28/23 16:16 DC 02/28/23 16:12 125 MG (KIERA MCMILLAN MD) Vital Signs/I&O 02/28/23 02/28/23 15:48 16:50 Temp 36.4 36.4 Pulse 110 110 Resp 16 16 B/P (MAP) 136/69 (91) 136/69 Pulse Ox 99 99 O2 Delivery Room Air Room Air (KIERA MCMILLAN MD) Vital Signs/I&O Capillary Refill : Less Than 3 Seconds (NICOLE NIELSON) Blood Pressure Mean: 91 Departure Communication (PCP) History of sinus infections and bronchitis. Previous smoker. Reviewed ER previous visits. Differential diagnosis, bronchitis, viral syndrome, pneumonia. History of asthma and allergies. She reports a wet productive cough. Burning in the chest with a cough. No wheezing or short of breath at this time. Bilateral ear fullness. No evidence otitis media. Oropharynx patent without erythema, swelling, exudate. Lung sounds were clear bilateral without wheezing, rhonchi or crackling. Denies any lower leg swelling. No history of coronary artery disease or CHF. History of similar symptoms in the past. Due to her complaint added COVID influenza which was negative. She states she has a history of chronic bronchitis. Previous smoker. She states typically a dose of steroids help which was given Solu-Medrol 125 mg. she is hemodynamically stable. She was slightly tachycardic but was having a coughing fit at the time. Improved heart rate to 89. oxygen 99% on room air. Does not necessarily need a nebulizer treatment at this time but was requesting nebulizer canisters for at home as needed. She does have rescue inhalers as well. She does have some maxillary sinus tenderness. Likely more viral versus potential allergies. Discussed Zyrtec, may consider Sudafed with the congestion and postnasal drip. Will discharge with refill of her albuterol nebulizers canisters. Due to her history of previous smoking may have a form of underlying COPD. Will discharge with doxycycline prophylactically. Follow-up your PCP in 2 to 3 days for reevaluation. If any worsening symptoms return back to ED for further evaluation. (NICOLE NIELSON) Impression Primary Impression: Upper respiratory infection Disposition: HOME, SELF-CARE Condition: Stable Departure-Patient Inst. Decision time for Depature: 16:10 (NICOLE NIELSON) Referrals: LACEY MARTINEZ MD (PCP/Family) Primary Care Physician Patient Instructions: Acute Bronchitis, Adult (DC) Scripts Albuterol Sulfate (Albuterol Sulfate) 2.5 Mg/3 Ml (0.083 %) Vial.neb 2.5 MG INH Q4H, #30 EA Prov: NICOLE NIELSON 02/28/23 Doxycycline Monohydrate (Doxycycline Monohydrate) 100 Mg Tablet 100 MG PO BID for 7 Days, #14 TAB Prov: NICOLE NIELSON 02/28/23 Prednisone (Prednisone) 20 Mg Tab 40 MG PO DAILY for 4 Days, #8 TAB Prov: NICOLE NIELSON 02/28/23 Work/School Note: Work Release Form Date Seen in the Emergency Department: Feb 28, 2023 Return to Work: Mar 03, 2023 ATTENDING PHYSICIAN NOTE: I was physically present as attending physician in the emergency department during the care of this patient, but I was not directly involved in the decision making or delivery of care for this patient. (KIERA MCMILLAN MD) NICOLE NIELSON Feb 28, 2023 16:11 KIERA MCMILLAN MD Feb 28, 2023 19:51
[2023-02-28] MEDS ORDERED: methylPREDNISolone INJ 125 MG VIAL IM ONE (16:15)
[2023-02-28 16:50] VITALS: BP 136/69
== END 2023-02-28 16:50 | disposition home or self-care (01) ==
LOC: EDUNIT# 15:39 → ER 15:44
DX: J06.9 Acute upper respiratory infection, unspecified (principal); Z91.148 Patient's other noncompliance with medication regimen for other reason; Z20.822 Contact with and (suspected) exposure to COVID-19
CPT/HCPCS: 87636; 99284

== ENCOUNTER 2023-04-11 10:34 | Emergency (ER) | payer MEDICAID ==
[~2023-04-11] VITALS: Ht 167.7 cm; Wt 131.5 kg
[~2023-04-11 10:34] MED LIST changes: +DOXY100T31 PO
[2023-04-11] MEDS ORDERED: NS IV 1000 ML 1,000 ML IV STA (11:05)
[2023-04-11] MEDS ORDERED: KETOROLAC INJ 30 MG/ML VIAL IVP ONE (11:15)
[2023-04-11] MEDS ORDERED: diphenhydrAMINE INJ 50 MG/ML VIAL IVP ONE (11:15)
[2023-04-11] MEDS ORDERED: PROCHLORPERAZINE INJ 10 MG/2ML VIAL IV ONE (11:15)
[2023-04-11] MEDS ORDERED: dexAMETHasone INJ 10 MG/ML 1 ML VIAL IV ONE (11:15)
--- NOTE | 2023-04-11 11:16 | ED Headache ---
General Chief Complaint: Head/Cervical Problems Stated Complaint: MIGRAINE Nursing Triage Note: PT AMB TO FT[facility] WITH COMPLAINT OF MIGRAINE. STATES STARTED THIS MORNING. STATES FORGOT TO TAKE TOPAMAX LAST NIGHT. Source: patient Exam Limitations: no limitations (NICOLE NIELSON) History of Present Illness Date Seen by Provider: Apr 11, 2023 Time Seen by Provider: 11:14 Initial Comments Patient is a 42-year-old female presents ED with a migraine. History of migraines. She does take Imitrex but did not take her shot this morning when her headache started. She woke up with a sharp pain to the base of her skull. This pain does radiate to her temporal region bilateral. Similar type pain with her previous migraines. She rates pain 9 out of 10. She reports nausea and dry heaving with photophobia and phonophobia with similar type symptoms with her previous migraines. She states when her migraines get severe she may develop a seizure. She did take her Topamax this morning. No seizure-like activity at home. She reports chronic numbness and tingling into her hands. She denies of any unilateral muscle weakness visual changes, worse headache of her life, fever, chills, chest pain, shortness of breath abdominal pain. She states she has been seen here in the ED for similar type headaches and typically a migraine cocktail improves her symptoms. (NICOLE NIELSON) Allergies and Home Medications Allergies Coded Allergies: Penicillins (Verified Allergy, Unknown, 01/28/19) fentanyl (Verified Allergy, Unknown, 04/05/22) haloperidol (Verified Allergy, Unknown, 01/28/19) hydroxyzine (Verified Allergy, Unknown, 04/05/22) latex (Verified Allergy, Unknown, 01/28/19) promethazine (Verified Allergy, Unknown, 01/28/19) tramadol (Verified Allergy, Unknown, 01/05/22) Patient Home Medication List Home Medication List Reviewed: Yes (NICOLE NIELSON) Albuterol Sulfate (Albuterol Sulfate) 2.5 Mg/3 Ml (0.083 %) Vial.neb, 2.5 MG INH Q4H Prescribed by: Brenda Julio on 10/24/22 6970 Albuterol Sulfate (Albuterol Sulfate) 2.5 Mg/3 Ml (0.083 %) Vial.neb, 2.5 MG INH Q4H Prescribed by: EVETTE SIERRA on 02/28/23 1611 Clindamycin HCl (Clindamycin HCl) 300 Mg Capsule, 300 MG PO QID Prescribed by: EVETTE SIERRA on 12/05/21 1406 Doxycycline Monohydrate (Doxycycline Monohydrate) 100 Mg Tablet, 100 MG PO BID Prescribed by: EVETTE SIERRA on 02/28/23 1611 Hydrocodone/Acetaminophen (Hydrocodone-Acetamin 5-325 mg) 5 Mg-325 Mg Tablet, 1 TAB PO Q4H PRN for PAIN-MODERATE (5-7) Prescribed by: EVETTE SIERRA on 12/05/21 1407 Hydrocodone/Acetaminophen (Hydrocodone-Acetamin 5-325 mg) 5 Mg-325 Mg Tablet, 1 TAB PO Q4H PRN for PAIN-MODERATE (5-7) Prescribed by: KIERA RUEDA on 09/30/22 1614 Ketorolac Tromethamine (Ketorolac Tromethamine) 10 Mg Tablet, 10 MG PO TID Prescribed by: MINDY LEDBETTER MD on 09/24/22 0910 Ketorolac Tromethamine (Ketorolac Tromethamine) 10 Mg Tablet, 10 MG PO TID Prescribed by: MINDY LEDBETTER MD on 12/16/22 195 Methocarbamol (Robaxin-750) 750 Mg Tablet, 750 MG PO Q6H PRN for PAIN-MODERATE Prescribed by: AMANDA FORTUNE on 01/28/19 1059 Methylprednisolone (Methylprednisolone Dose Pack) 4 Mg Tab.ds.pk, 4 MG PO UD Prescribed by: Brenda Julio on 10/24/22 1857 Metronidazole (Metronidazole) 500 Mg Tablet, 500 MG PO BID Prescribed by: Brenda Julio on 10/24/22 1840 Naproxen (Naprosyn) 500 Mg Tablet, 500 MG PO BID PRN for PAIN-MODERATE (5-7) Prescribed by: LISA SAXENA on 05/05/22 1141 Nitrofurantoin Monohyd/M-Cryst (Macrobid 100 mg Capsule) 100 Mg Capsule, 1 TAB PO BID Prescribed by: KIERA RUEDA on 10/28/22 1254 Ondansetron (Ondansetron Odt) 4 Mg Tab.rapdis, 4 MG PO Q6H PRN for NAUSEA/VOMITING Prescribed by: JENNIFER REYNOSO on 11/26/21 1825 Ondansetron (Ondansetron Odt) 8 Mg Tab.rapdis, 8 MG SL Q6H PRN for NAUSEA/VOMITING Prescribed by: MINDY LEDBETTER MD on 12/16/22 1956 Oxycodone HCl/Acetaminophen (Percocet 5-325 mg Tablet) 1 Each Tablet, 1-2 TAB PO Q4H PRN for PAIN-BREAKTHROUGH Prescribed by: KIERA RUEDA on 04/05/22 0936 Prednisone (Prednisone) 20 Mg Tab, 40 MG PO DAILY Prescribed by: KIERA RUEDA on 04/05/22 0935 Prednisone (Prednisone) 20 Mg Tab, 40 MG PO DAILY Prescribed by: EVETTE SIERRA on 02/28/23 1611 Prochlorperazine Maleate (Compazine) 10 Mg Tablet, 10 MG PO Q8H PRN for NAUSEA/VOMITING Prescribed by: Azeem Wadsworth on 05/27/22 1803 Sulfamethoxazole/Trimethoprim (Bactrim Ds Tablet) 1 Each Tablet, 1 EACH PO BID Prescribed by: MINDY LEDBETTER MD on 09/24/22 0910 Sulfamethoxazole/Trimethoprim (Bactrim Ds Tablet) 1 Each Tablet, 1 EACH PO BID Prescribed by: Brenda Julio on 10/24/22 1840 Tranexamic Acid (Tranexamic Acid) 650 Mg Tablet, 1,300 MG PO TID Prescribed by: LISA SAXENA on 05/05/22 1130 Review of Systems Review of Systems Constitutional: No chills, No diaphoresis, No fever, No malaise, No weakness Eyes: Denies Blurred Vision, Denies Drainage, Denies Decreased Acuity Ears, Nose, Mouth, Throat: denies ear pain, denies ear discharge Respiratory: No cough, No dyspnea on exertion Cardiovascular: No chest pain Gastrointestinal: No abdominal pain; nausea, vomiting Genitourinary: No decreased output, No discharge Musculoskeletal: No back pain Psychiatric/Neurological: Headache, Numbness (NICOLE NIELSON) All Other Systems Reviewed Negative Unless Noted: Yes (NICOLE NIELSON) Past Eiddchu-Ozgigu-Nzrxgi Hx Patient Social History Tobacco Use?: Yes Use of E-Cig and/or Vaping dev: No Substance use?: No Alcohol Use?: No Pt feels they are or have been: No (NICOLE NIELSON) Immunizations Up To Date Tetanus Booster (TDap): Unknown PED Vaccines UTD: Yes First/Initial COVID19 Vaccinat: 2020 Second COVID19 Vaccination Ugo: 2020 Third COVID19 Vaccination Date: 2020 (NICOLE NIELSON) Seasonal Allergies Seasonal Allergies: No (NICOLE NIELSON) Past Medical History Surgery/Hospitalization HX: c-sect, 4 RT FOOT SURGERIES 1 L FOOT SURG, 3 BREAST REDUCTIONS, TONSILS, APPENDIX, DEPRESSION. 05/11 FOOT SURG TARSAL TUNNEL RELEASE, DM, TIA, DEPRESSION, ANXIETY Surgeries: Yes (D&C) Appendectomy, Breast, Section, Tonsillectomy Respiratory: No Cardiac: Yes Neurological: Yes Headaches /Migraines Genitourinary: No Gastrointestinal: No Musculoskeletal: Yes Arthritis Endocrine: No HEENT: No Cancer: No Psychosocial: No (NICOLE NIELSON) Family Medical History No Pertinent Family Hx (NICOLE NIELSON) Physical Exam Vital Signs Vital Signs - First Documented 04/11/23 10:48 Temp 37.1 Pulse 79 Resp 18 B/P (MAP) 128/77 (94) Pulse Ox 97 O2 Delivery Room Air (KIERA MCMILLAN MD) Vital Signs Capillary Refill : (NICOLE NIELSON) Height, Weight, BMI Height: 5'6.00" Weight: 274lbs. oz. 124.780248kn; 46.00 BMI Method:Stated General Appearance: WD/WN, no apparent distress HEENT: PERRL/EOMI, normal ENT inspection, TMs normal, pharynx normal Neck: non-tender, full range of motion, supple Cardiovascular: regular rate, rhythm, no edema, no gallop, no JVD Respiratory: chest non-tender, lungs clear, normal breath sounds, no respiratory distress, no accessory muscle use Gastrointestinal: normal bowel sounds, non tender, soft Back: normal inspection, no CVA tenderness, no vertebral tenderness Extremities: normal range of motion, non-tender, normal inspection, no pedal edema Crainal Nerves: normal hearing, normal speech, PERRL Coordination/Gait: normal finger to nose, normal gait Motor/Sensory: no motor deficit, no sensory deficit, no pronator drift Skin: normal color, warm/dry (NICOLE NIELSON) Procedures/Interventions Dental Procedures: Dental I&D (NICOLE NIELSON) Progress/Results/Core Measures Results/Orders Vital Signs/I&O 04/11/23 04/11/23 10:48 12:46 Temp 37.1 Pulse 79 Resp 18 B/P (MAP) 128/77 (94) 122/86 Pulse Ox 97 O2 Delivery Room Air 04/12/23 00:00 Intake Total 1000 ml Balance 1000 ml (KIERA MCMILLAN MD) Blood Pressure Mean: 94 Departure Communication (PCP) Differential diagnoses migraine, viral syndrome. patient with a history of migraines presents to ED with head pain. Similar type migraine today. Denies worst headache of her life. No recent URI. she has no obvious strokelike symptoms. Neuro exam unremarkable. She does not appear toxic or septic. No meningeal signs. Adequate strength throughout. No facial droop. Concern for a migraine at this time. Received a migraine cocktail of Toradol, normal saline, Compazine Benadryl and Decadron with near resolution of her symptoms. She was observed here. She does have a ride. History of seizures no evidence of seizure-like activity. She is requesting to be discharged. Strict return precautions were discussed. Continue monitoring symptoms at home. Continue w ith your migraine medication. If any worsening symptoms return back to ED. Follow-up with your PCP in 2 to 3 days for evaluation (NICOLE NIELSON) Impression Primary Impression: Migraine Disposition: 01 HOME, SELF-CARE Condition: Stable Departure-Patient Inst. Decision time for Depature: 12:29 (NICOLE NIELSON) Referrals: LACEY MARTINEZ MD (PCP/Family) Primary Care Physician Patient Instructions: Migraines in adults Add. Discharge Instructions: Continue monitoring symptoms at home. If any change to return back to ED All discharge instructions reviewed with patient and/or family. Voiced understanding. Work/School Note: Work Release Form Date Seen in the Emergency Department: Apr 11, 2023 Return to Work: Apr 13, 2023 ATTENDING PHYSICIAN NOTE: I was physically present as attending physician in the emergency department d uring the care of this patient, but I was not directly involved in the decision making or delivery of care for this patient. (KIERA MCMILLAN MD) NICOLE NIELSON Apr 11, 2023 11:16 KIERA MCMILLAN MD Apr 12, 2023 17:07
[2023-04-11 12:46] VITALS: BP 122/86
== END 2023-04-11 12:46 | disposition home or self-care (01) ==
LOC: EDUNIT# 10:34 → ER 10:35
DX: G43.909 Migraine, unspecified, not intractable, without status migrainosus (principal); Z91.040 Latex allergy status; Z79.899 Other long term (current) drug therapy
CPT/HCPCS: 84703; 99282

== ENCOUNTER 2023-05-09 15:35 | Emergency (ER) | payer MEDICAID ==
[~2023-05-09] VITALS: Ht 167.7 cm; Wt 129.2 kg
--- NOTE | 2023-05-09 15:59 | ED Headache ---
General Chief Complaint: Head/Cervical Problems Stated Complaint: MIGRAINE Nursing Triage Note: PT AMB TO [facility] 5 WITH CC OF MIGRAINE SINCE THIS AM. PT REPORTS HAS HISTORY OF MIGRAINES AND TAKES AN INJECTION. PT REPORTS NAUSEA, VOMITING AND DIZZINESS. PT A&OX4 Source: patient Exam Limitations: no limitations History of Present Illness Date Seen by Provider: May 09, 2023 Time Seen by Provider: 15:42 Initial Comments 42-year-old female presents to the ER with complaint of migraine and neck pain. She states that yesterday she had her usual migraine which consists of a stabbing pain in the left posterior side of her head. Reports that she took her Imitrex injection at that time which improved her migraine. States that today while driving she had gradual onset of feeling as though someone is putting pressure on the top of her head causing neck pain. She also reports her usual migraine symptom of left-sided stabbing pain. She states that she has had this neck pain with her migraines in the past, but states it does not occur frequently. She reports that she feels as though she is having difficulty speaking, states that she forgot that Dwain Anthony was president earlier. She is alert and oriented x4 at this time. No slurred speech noted. She reports nausea and photophobia. She denies fevers, rhinitis, sore throat. Allergies and Home Medications Allergies Coded Allergies: Penicillins (Verified Allergy, Unknown, 01/28/19) fentanyl (Verified Allergy, Unknown, 04/05/22) haloperidol (Verified Allergy, Unknown, 01/28/19) hydroxyzine (Verified Allergy, Unknown, 04/05/22) latex (Verified Allergy, Unknown, 01/28/19) promethazine (Verified Allergy, Unknown, 01/28/19) tramadol (Verified Allergy, Unknown, 01/05/22) Patient Home Medication List Home Medication List Reviewed: Yes Albuterol Sulfate (Albuterol Sulfate) 2.5 Mg/3 Ml (0.083 %) Vial.neb, 2.5 MG INH Q4H Prescribed by: Brenda Julio on 10/24/22 1841 Albuterol Sulfate (Albuterol Sulfate) 2.5 Mg/3 Ml (0.083 %) Vial.neb, 2.5 MG INH Q4H Prescribed by: EVETTE SIERRA on 02/28/23 1611 Clindamycin HCl (Clindamycin HCl) 300 Mg Capsule, 300 MG PO QID Prescribed by: EVETTE SIERRA on 12/05/21 1406 Doxycycline Monohydrate (Doxycycline Monohydrate) 100 Mg Tablet, 100 MG PO BID Prescribed by: EVETTE SIERRA on 02/28/23 1611 Hydrocodone/Acetaminophen (Hydrocodone-Acetamin 5-325 mg) 5 Mg-325 Mg Tablet, 1 TAB PO Q4H PRN for PAIN-MODERATE (5-7) Prescribed by: EVETTE SIERRA on 12/05/21 1407 Hydrocodone/Acetaminophen (Hydrocodone-Acetamin 5-325 mg) 5 Mg-325 Mg Tablet, 1 TAB PO Q4H PRN for PAIN-MODERATE (5-7) Prescribed by: KIERA RUEDA on 09/30/22 1614 Ketorolac Tromethamine (Ketorolac Tromethamine) 10 Mg Tablet, 10 MG PO TID Prescribed by: MINDY LEDBETTER MD on 09/24/22 0910 Ketorolac Tromethamine (Ketorolac Tromethamine) 10 Mg Tablet, 10 MG PO TID Prescribed by: MINDY LEDBETTER MD on 12/16/22 1956 Methocarbamol (Robaxin-750) 750 Mg Tablet, 750 MG PO Q6H PRN for PAIN-MODERATE Prescribed by: AMANDA FORTUNE on 01/28/19 1059 Methylprednisolone (Methylprednisolone Dose Pack) 4 Mg Tab.ds.pk, 4 MG PO UD Prescribed by: Brenda Julio on 10/24/22 1857 Metronidazole (Metronidazole) 500 Mg Tablet, 500 MG PO BID Prescribed by: Brenda Julio on 10/24/22 1840 Naproxen (Naprosyn) 500 Mg Tablet, 500 MG PO BID PRN for PAIN-MODERATE (5-7) Prescribed by: LISA SAXENA on 05/05/22 1141 Nitrofurantoin Monohyd/M-Cryst (Macrobid 100 mg Capsule) 100 Mg Capsule, 1 TAB PO BID Prescribed by: KIERA RUEDA on 10/28/22 1254 Ondansetron (Ondansetron Odt) 4 Mg Tab.rapdis, 4 MG PO Q6H PRN for NAUSEA/VOMITING Prescribed by: JENNIFER REYNOSO on 11/26/21 182 Ondansetron (Ondansetron Odt) 8 Mg Tab.rapdis, 8 MG SL Q6H PRN for NAUSEA/VOMITING Prescribed by: MINDY LEDBETTER MD on 12/16/221955 Oxycodone HCl/Acetaminophen (Percocet 5-325 mg Tablet) 1 Each Tablet, 1-2 TAB PO Q4H PRN for PAIN-BREAKTHROUGH Prescribed by: KIERA RUEDA on 04/05/22 0936 Prednisone (Prednisone) 20 Mg Tab, 40 MG PO DAILY Prescribed by: KIERA RUEDA on 04/05/22 0935 Prednisone (Prednisone) 20 Mg Tab, 40 MG PO DAILY Prescribed by: EVETTE SIERRA on 02/28/23 1611 Prochlorperazine Maleate (Compazine) 10 Mg Tablet, 10 MG PO Q8H PRN for NAUSEA/VOMITING Prescribed by: Azeem Wadsworth on 05/27/22 1803 Sulfamethoxazole/Trimethoprim (Bactrim Ds Tablet) 1 Each Tablet, 1 EACH PO BID Prescribed by: MINDY LEDBETTER MD on 09/24/22 0910 Sulfamethoxazole/Trimethoprim (Bactrim Ds Tablet) 1 Each Tablet, 1 EACH PO BID Prescribed by: Brenda Julio on 10/24/22 1840 Tranexamic Acid (Tranexamic Acid) 650 Mg Tablet, 1,300 MG PO TID Prescribed by: LISA SAXENA on 05/05/22 1130 Review of Systems Review of Systems Constitutional: see HPI Past [id number]-[id number] Hx Patient Social History Tobacco Use?: No Substance use?: No Alcohol Use?: No Immunizations Up To Date Tetanus Booster (TDap): Unknown PED Vaccines UTD: Yes First/Initial COVID19 Vaccinat: 2020 Second COVID19 Vaccination Ugo: 2020 Third COVID19 Vaccination Date: 2020 Seasonal Allergies Seasonal Allergies: No Past Medical History Surgery/Hospitalization HX: c-sect, 4 RT FOOT SURGERIES 1 L FOOT SURG, 3 BREAST REDUCTIONS, TONSILS, APPENDIX, DEPRESSION. 05/11 FOOT SURG TARSAL TUNNEL RELEASE, DM, TIA, DEPRESSION, ANXIETY Surgeries: Yes (D&C) Appendectomy, Breast, Section, Tonsillectomy Respiratory: No Cardiac: Yes Neurological: Yes Headaches /Migraines Genitourinary: No Gastrointestinal: No Musculoskeletal: Yes Arthritis Endocrine: No HEENT: No Cancer: No Psychosocial: No Family Medical History No Pertinent Family Hx Physical Exam Vital Signs Vital Signs - First Documented 05/09/23 15:40 Temp 36.8 Pulse 88 Resp 18 B/P (MAP) 115/61 (79) Pulse Ox 96 O2 Delivery Room Air Capillary Refill : Less Than 3 Seconds Height, Weight, BMI Height: 5'6.00" Weight: 274lbs. oz. 124.908086mn; 45.00 BMI Method:Stated General Appearance: WD/WN, no apparent distress HEENT: PERRL/EOMI, TMs normal Neck: supple, normal inspection Cardiovascular: regular rate, rhythm Respiratory: lungs clear, normal breath sounds, no respiratory distress, no accessory muscle use Extremities: normal range of motion, normal inspection Psychiatric: alert, oriented x 3 [place] Nerves: normal hearing, normal speech, PERRL Coordination/Gait: normal finger to nose Motor/Sensory: no motor deficit, no sensory deficit Skin: normal color, warm/dry Procedures/Interventions Dental Procedures: Dental I&D Progress/Results/Core Measures Results/Orders Lab Results Laboratory Tests Test 05/09/23 15:56 Range/Units White Blood Count 9.5 4.3-11.0 10^3/uL Red Blood Count 4.54 3.80-5.11 10^6/uL Hemoglobin 13.9 11.5-16.0 g/dL Hematocrit 42 35-52 % Mean Corpuscular Volume 93 80-99 fL Mean Corpuscular Hemoglobin 31 25-34 pg Mean Corpuscular Hemoglobin Concent 33 32-36 g/dL Red Cell Distribution Width 12.7 10.0-14.5 % Platelet Count 340 130-400 10^3/uL Mean Platelet Volume 9.6 9.0-12.2 fL Immature Granulocyte % (Auto) 0 % Neutrophils (%) (Auto) 49 42-75 % Lymphocytes (%) (Auto) 32 12-44 % Monocytes (%) (Auto) 7 0-12 % Eosinophils (%) (Auto) 11 H 0-10 % Basophils (%) (Auto) 1 0-10 % Neutrophils # (Auto) 4.6 1.8-7.8 10^3/uL Lymphocytes # (Auto) 3.1 1.0-4.0 10^3/uL Monocytes # (Auto) 0.7 0.0-1.0 10^3/uL Eosinophils # (Auto) 1.0 H 0.0-0.3 10^3/uL Basophils # (Auto) 0.1 0.0-0.1 10^3/uL Immature Granulocyte # (Auto) 0.0 0.0-0.1 10^3/uL Neutrophils % (Manual) 55 % Lymphocytes % (Manual) 33 % Monocytes % (Manual) 7 % Eosinophils % (Manual) 5 % Blood Morphology Comment NORMAL Sodium Level 139 135-145 MMOL/L Potassium Level 3.5 L 3.6-5.0 MMOL/L Chloride Level 111 H 98-107 MMOL/L Carbon Dioxide Level 20 L 21-32 MMOL/L Anion Gap 8 5-14 MMOL/L Blood Urea Nitrogen 8 7-18 MG/DL Creatinine 0.78 0.60-1.30 MG/DL Estimat Glomerular Filtration Rate 96 BUN/Creatinine Ratio 10 Glucose Level 91 70-105 MG/DL Calcium Level 9.3 8.5-10.1 MG/DL Corrected Calcium 9.5 8.5-10.1 MG/DL Total Bilirubin 0.6 0.1-1.0 MG/DL Aspartate Amino Transf (AST/SGOT) 10 5-34 U/L Alanine Aminotransferase (ALT/SGPT) 12 0-55 U/L Alkaline Phosphatase 43 40-136 U/L Total Protein 6.6 6.4-8.2 GM/DL Albumin 3.7 3.2-4.5 GM/DL My Orders Orders - BRENDA ARNDT APRN Diphenhydramine Injection (Diphenhydram (05/09/23 16:15) Prochlorperazine Injection (Prochlorpera (05/09/23 16:15) Ketorolac Injection (Ketorolac Injection (05/09/23 16:15) Ed Iv/Invasive Line Start (05/09/23 16:02) Ns Iv 1000 Ml (Ns Iv 1000 Ml) (05/09/23 16:15) Cbc And Manual Diff (05/09/23 16:46) Comprehensive Metabolic Panel (05/09/23 16:46) Medications Given in ED Current Medications Medications Dose Ordered Sig/Barb Route Start Time Stop Time Status Last Admin Dose Admin Diphenhydramine HCl 25 mg ONCE ONCE IVP 05/09/23 16:15 05/09/23 16:16 DC 05/09/23 16:20 25 MG Ketorolac Tromethamine 15 mg ONCE ONCE IVP 05/09/23 16:15 05/09/23 16:16 DC 05/09/23 16:20 15 MG Prochlorperazine Edisylate 10 mg ONCE ONCE IV 05/09/23 16:15 05/09/23 16:16 DC 05/09/23 16:19 10 MG Vital Signs/I&O 05/09/23 05/09/23 15:40 17:37 Temp 36.8 Pulse 88 77 Resp 18 18 B/P (MAP) 115/61 (79) 122/61 Pulse Ox 96 96 O2 Delivery Room Air Room Air Blood Pressure Mean: 79 Progress Progress Note : Progress Note Patient seen and evaluated, resting comfortably in bed, no acute distress. Based on exam and symptoms, differential diagnosis include but are not limited to, migraine headache, tension headache, concussion. No red flags, neurologic exam without evidence focal neurological findings. Presentation not consistent with acute intracranial bleed, or [employer] infection including meningitis or brain abscess. Temporal arteritis, occipital or trigeminal neuralgia, acute angle gl aucoma are unlikely based on exam and physical findings. Presentation not consistent with other acute, emergent causes of headache at this time. Will treat symptomatically with medications and fluids. No indication for imaging or testing at this time although CT scan was considered. Will treat with Toradol, Compazine, and Benadryl and IV fluids. 1730 Labs reviewed. CBC grossly normal. CMP shows slightly potassium 3.5. Chloride slightly elevated 111. CO2 slightly decreased 20. Patient reports that she is feeling much better after migraine cocktail. Patient is stable for discharge. Discharge instructions and return precautions provided. Departure Impression Primary Impression: Migraine Disposition: 01 HOME, SELF-CARE Condition: Stable Departure-Patient Inst. Decision time for Depature: 17:32 Referrals: LACEY MARTINEZ MD (PCP/Family) Primary Care Physician Patient Instructions: Migraines (DC) Add. Discharge Instructions: Follow-up with your primary care provider. Return for any new, concerning, or worsening symptoms. All discharge instructions reviewed with patient and/or family. Voiced understanding. BRENDA ARNDT [employer] PERSON DISHW[employer]ER May 09, 2023 15:59
[2023-05-09] MEDS ORDERED: diphenhydrAMINE INJ 50 MG/ML VIAL IVP ONE (16:15)
[2023-05-09] MEDS ORDERED: KETOROLAC INJ 15 MG/ML VIAL IVP ONE (16:15)
[2023-05-09] MEDS ORDERED: PROCHLORPERAZINE INJ 10 MG/2ML VIAL IV ONE (16:15)
[2023-05-09] MEDS ORDERED: NS IV 1000 ML 1,000 ML IV SCH (16:15)
[2023-05-09 16:52] LABS: BASOPHILS # (AUTO) 0.1 10^3/uL (0.0-0.1); BASOPHILS % (AUTO) 1 % (0-10); EOSINOPHILS % (AUTO) 11 % (0-10); HEMATOCRIT 42 % (35-52); HEMOGLOBIN 13.9 g/dL (11.5-16.0); LYMPHOCYTES # (AUTO) 3.1 10^3/uL (1.0-4.0); LYMPHOCYTES % (AUTO) 32 % (12-44); MEAN CORPUSCULAR HEMOGLOBIN 31 pg (25-34); MEAN CORPUSCULAR HGB CONC 33 g/dL (32-36); MEAN CORPUSCULAR VOLUME 93 fL (80-99); MEAN PLATELET VOLUME 9.6 fL (9.0-12.2); MONOCYTES # (AUTO) 0.7 10^3/uL (0.0-1.0); MONOCYTES % (AUTO) 7 % (0-12); NEUTROPHILS # (AUTO) 4.6 10^3/uL (1.8-7.8); NEUTROPHILS % (AUTO) 49 % (42-75); PLATELET COUNT 340 10^3/uL (130-400); WHITE BLOOD COUNT 9.5 10^3/uL (4.3-11.0)
[2023-05-09 16:56] LABS: ALBUMIN 3.7 GM/DL (3.2-4.5); POTASSIUM 3.5 MMOL/L (3.6-5.0)
[2023-05-09 16:58] LABS: CALCIUM 9.3 MG/DL (8.5-10.1)
[2023-05-09 16:59] LABS: TOTAL PROTEIN 6.6 GM/DL (6.4-8.2)
[2023-05-09 17:01] LABS: BILIRUBIN,TOTAL 0.6 MG/DL (0.1-1.0)
[2023-05-09 17:02] LABS: CREATININE SERUM 0.78 MG/DL (0.60-1.30)
[2023-05-09 17:17] LABS: EOSINOPHILS % (MANUAL) 5 %; LYMPHOCYTES % (MANUAL) 33 %; MONOCYTES % (MANUAL) 7 %; NEUTROPHILS % (MANUAL) 55 %; RBC MORPH NORMAL
[2023-05-09 17:37] VITALS: BP 122/61
== END 2023-05-09 17:37 | disposition home or self-care (01) ==
LOC: EDUNIT# 15:35 → ER 15:36
DX: G43.909 Migraine, unspecified, not intractable, without status migrainosus (principal); Z91.040 Latex allergy status; Z88.6 Allergy status to analgesic agent
CPT/HCPCS: 36415; 80053; 85007; 85027; 96361; 96374; 96375